=== PATIENT | male | born 1950 | race Caucasian/White ===

== ENCOUNTER 2017-09-15 17:06 | Inpatient (IN) ==
[2017-09-15] MEDS ORDERED: SALINE FLUSH 10ml SYRINGE IVF PRN (17:24)
--- NOTE | 2017-09-15 17:54 | Emergency Department Report ---
Psych HPI - General Chief Complaint: Psychiatric Symptoms Stated Complaint: evaluation Time Seen by Provider: 09/15/17 17:10 Source: patient Mode of arrival: ambulatory Limitations: no limitations - History of Present Illness HPI Narrative: Pt here for evaluation for admission to [facility]. Pt was in a psych facility in [place] and having some behavior issues with other residents. At this point pt reports threats to hurt himself and others. He states he is not above killing another of the residents at the other facility. Pt reports he has been feeling down for about 2 weeks now and feels abandoned by his family MD complaint: suicidal ideation, feels depressed, other (homicidal) Onset (ago): week(s) Duration: getting worse Prior Hospitalization: Yes Relieving factors: none Exacerbating factors: other (interactions ) Context: significant life stressor Associated psychiatric symptoms: depression, suicidal ideation, homicidal ideation Associated symptoms: denies other symptoms Treatments prior to arrival: other (was in another facility) If self harm: admits thoughts of self harm - Related Data Home Medications Medication Instructions Recorded Confirmed Acetaminophen [Tylenol] 650 mg PO Q4HR 09/15/17 09/15/17 Allopurinol [Zyloprim] 200 mg PO DAILY 09/15/17 09/15/17 Aspirin [Lori Chewable Aspirin] 81 mg PO DAILY 09/15/17 09/15/17 Atorvastatin Calcium 20 mg PO HS 09/15/17 09/15/17 Bacitracin [Bacitraycin Plus] 1 applicatio TP DAILY 09/15/17 09/15/17 Baclofen [Lioresal] 10 mg PO TID 09/15/17 09/15/17 Buspirone [Buspar] 15 mg PO BID 09/15/17 09/15/17 Calcium Carbonate/Vitamin D3 1 tab PO DAILY 09/15/17 09/15/17 [Caltrate 600 + D Soft Chew Tab] Carvedilol [Carvedilol] 6.25 mg PO BID 09/15/17 09/15/17 Cetirizine [Zyrtec] 10 mg PO DAILY 09/15/17 09/15/17 Donepezil [Aricept] 10 mg PO DAILY 09/15/17 09/15/17 Ergocalciferol (Vit. D2) [Vitamin 50,000 unit PO DAILY 09/15/17 09/15/17 D-2] Famotidine [Pepcid] 20 mg PO BID 09/15/17 09/15/17 Fenofibrate [Lofibra] 160 mg PO DAILY 09/15/17 09/15/17 Ferrous Sulfate 325 mg PO DAILY 09/15/17 09/15/17 Fluconazole [Diflucan] 150 mg PO DAILY 09/15/17 09/15/17 Furosemide [Lasix] 40 mg PO BID 09/15/17 09/15/17 Gabapentin [Neurontin] 100 mg PO TID 09/15/17 09/15/17 Hydralazine [Apresoline] 25 mg PO BID 09/15/17 09/15/17 Hydrocodone/Acetaminophen 1 tab PO BID 09/15/17 09/15/17 [Hydrocodon-Acetaminophen 5-325] Hydrocodone/Acetaminophen 1 tab PO Q4HR 09/15/17 09/15/17 [Hydrocodon-Acetaminophen 5-325] Insulin Aspart [Novolog Flexpen] 10 unit SQ DAILY 09/15/17 09/15/17 Insulin Aspart [Novolog Flexpen] 26 unit SQ DAILY 09/15/17 09/15/17 Insulin Aspart [Novolog Flexpen] 30 units SQ DAILY 09/15/17 09/15/17 Insulin Degludec [Tresiba 92 unit SQ HS 09/15/17 09/15/17 Flextouch U-200] LORazepam [Ativan] 0.5 mg PO TID PRN 09/15/17 09/15/17 Levothyroxine Sodium 175 mcg PO 4XW 09/15/17 09/15/17 Levothyroxine Sodium 200 mcg PO 3XW 09/15/17 09/15/17 Linagliptin [Tradjenta] 5 mg PO DAILY 09/15/17 09/15/17 Lipase/Protease/Amylase [Creon Dr 24,000 unit PO TID 09/15/17 09/15/17 24,000 Units Capsule] Loperamide [Imodium] 2 mg PO PRN PRN 09/15/17 09/15/17 MAG-Al + SIM BULK (For Cpdg) 10 - 20 ml PO TID PRN 09/15/17 09/15/17 [Maalox Bulk] Magnesium Hydroxide [Milk of 5 - 10 ml PO DAILY PRN 09/15/17 09/15/17 Magnesia] Magnesium Oxide [Magnesium] 400 mg PO BID 09/15/17 09/15/17 Memantine [Namenda] 5 mg PO DAILY 09/15/17 09/15/17 Olopatadine 0.2% Eye Drops-Qd 2 drop EACH EYE DAILY 09/15/17 09/15/17 [Pataday] [place]-3 Fatty Acids [[place]-3] 1,000 mg PO DAILY 09/15/17 09/15/17 Pantoprazole Tab [Protonix Tab] 40 mg PO BID 09/15/17 09/15/17 Ropinirole [Requip] 1 mg PO DAILY 09/15/17 09/15/17 Ropinirole [Requip] 2 mg PO HS 09/15/17 09/15/17 Sodium Polystyrene Sulfonate 80 ml PO MOWEFR 09/15/17 09/15/17 [Kayexelate] Travoprost 0.004% Eye Drops 1 drop EACH EYE HS 09/15/17 09/15/17 [Travatan Z] Trazodone HCl 75 mg PO HS 09/15/17 09/15/17 Triamcinolone 0.1% Cream 15 G 1 applicatio TOP BID 09/15/17 09/15/17 [Kenalog] Venlafaxine XR [Effexor Xr] 150 mg PO DAILY 09/15/17 09/15/17 Allergies Allergy/AdvReac Type Severity Reaction Status Date / Time codeine [Codiene] Allergy Unknown Verified 09/15/17 17:43 hydromorphone [From Dilaudid] Allergy Unknown Verified 09/15/17 17:43 morphine Allergy Unknown Verified 09/15/17 17:42 Sulfa (Sulfonamide Allergy Unknown Verified 09/15/17 17:42 Antibiotics) Review of Systems All systems: reviewed and negative except as stated Psychiatric: Reports: as per HPI PFSH Patient Stated Medical History Dementia Yes: WITH BEHAVIORS Dysphagia Yes Glaucoma Yes Angina Yes Congestive Heart Failure Yes Other Cardiology Yes: HYPOKALEMIA, ISCHEMIC HEART DISEASE, SYNCOPE Diabetes Mellitus Type 2 Yes Other Yes: CHRONIC KIDNEY DISEASE Other Musculoskeletal Yes: CERVICAL DISC DISORDER, INTERVERTEBRAL DISC DEGEN, GOUT Physical Exam - Limitations Limitations: no limitations - General General appearance: alert, in no apparent distress - Normal Exams: Head:: Normocephalic without trauma Eyes:: Pupils are PERRLA w/ EOMI Neck:: Full range of motion, without adenopathy Chest/Respirations:: Clear all nagy, with good airflow, and symmetry bilaterally Cardiovascular:: Regular rate and rhythm, without murmur or gallop, Pulses 2+ all extremities, capillary refill, <2 seconds all extremities Abdomen:: Bowel sounds positive, soft, non-tender, non-distended Musculoskeletal:: No tenderness, or deformity noted, good range of motion, all extremities Integumentary:: No rashes Neurological:: Patient is alert, and oriented, cranial nerves, motor/sensory/ cerebellar, exams w/o gross deficits, to observation Psychiatric:: Patient exhibits, appropriate attention, emotion and affect Course Vital Signs Temperature 98.3 F 09/15/17 17:20 Pulse Rate 97 09/15/17 17:20 Respiratory Rate 18 09/15/17 17:20 Blood Pressure 184/84 H 09/15/17 17:20 Pulse Oximetry 93 09/15/17 17:20 Temperature 98.3 F 09/15/17 17:20 Pulse Rate 97 09/15/17 17:20 Respiratory Rate 18 09/15/17 17:20 Blood Pressure 202/93 H 09/15/17 18:30 Pulse Oximetry 93 09/15/17 17:20 Psych - MDM Narrative Medical decision making narrative: Lab results and X ray reviewed. Pt states he has not had any of his medications since last night. 1L NS given. [facility] made aware of lab results, VS, and medication status. Pt to be transferred upon completion of IVF - Differential Diagnosis Likely: acute psychosis, suicidal ideation, bipolar disorder, depression, acute anxiety - Medical Records Attestation: I reviewed the patient's medical records. - Lab Data Attestation: I reviewed the patient's lab results. Result diagrams: 09/15/17 18:06 09/15/17 18:06 Lab Results 09/15/17 09/15/17 09/15/17 Range/Units 18:06 18:06 18:06 WBC 7.2 (4.5-11.0) T/MM3 RBC 3.96 L (4.50-5.90) M/MM3 Hgb 11.1 L (13.5-17.5) GM/DL Hct 36.5 L (41-53) % MCV 92.2 (80-100) UM3 MCH 28.0 (26-34) UUG MCHC 30.4 L (31-37) GM/DL RDW Std Deviation 47.6 (36.9-50.2) FL Plt Count 345 (130-400) T/MM3 MPV 10.5 (9.4-12.4) UM3 Immature Gran % (Auto) 0.4 (0.0-0.5) % Neut % (Auto) 78.5 H (33-66) % Lymph % (Auto) 12.1 L (23-45) % [place] % (Auto) 6.3 (0-9.0) % Eos % (Auto) 2.6 (0-4) % Baso % (Auto) 0.1 (0-2) % Neut # (Auto) 5.6 (1.8-7.7) T/MM3 Lymph # (Auto) 0.9 L (1-4.8) T/MM3 [place] # (Auto) 0.5 (0-0.8) T/MM3 Eos # (Auto) 0.2 (0-0.5) T/MM3 Baso # (Auto) 0.0 (0-0.2) T/MM3 Abs Immat Gran (auto) 0.03 (0.00-0.03) T/MM3 Turbidity < 20 (0-20) Sodium 140 (134-144) MEQ/L Potassium 4.8 (3.6-5) MEQ/L Chloride 97 L (98-107) MEQ/L Carbon Dioxide 31 H (22-30) MEQ/L Anion Gap 12 (5-15) MEQ/L BUN 43.0 H (9-20) MG/DL Creatinine 2.6 H (0.8-1.5) MG/DL GFR Calculation 25 BUN/Creatinine Ratio 17 (6-26) RATIO Glucose 328 H (75-110) MG/DL Calculated Osmolality 293 H (261-280) MOSM/KG Calcium 9.1 (8.4-10.2) MG/DL Total Bilirubin 0.30 (0.20-1.30) MG/DL Icterus Index < 2 (0-7) AST 41 (17-59) U/L ALT 38 (21-72) U/L Alkaline Phosphatase 129 H (38-126) U/L Total Protein 8.4 H (6.3-8.2) G/DL Albumin 4.6 (3.5-5.0) G/DL Globulin 3.8 H (2.4-3.6) G/DL Albumin/Globulin Ratio 1.2 (1.1-2.2) RATIO TSH 0.47 (0.47-4.68) MIU/L Specimen Hemolysis < 15 (0-25) Ur Collection Type Urine, clean catch Urine Color Yellow (YELLOW) Urine Clarity Clear Urine pH 6.5 (5.0-8.0) Ur Specific [place] 1.015 (1.015-1.025) Urine Protein 1+ A (NEGATIVE) Urine Glucose (UA) 3+ A (NEGATIVE) Urine Ketones Negative (NEGATIVE) Urine Occult Blood Trace-intact (NEGATIVE) Urine Nitrate Negative (NEGATIVE) Urine Bilirubin Negative (NEGATIVE) Urine Urobilinogen 0.2 (NORMAL) EU/DL Ur Leukocyte Esterase Negative (NEGATIVE) Urine RBC None seen (0-3) /HPF Urine WBC None seen (0-5) /HPF Urine Bacteria Trace H (NEGATIVE) Ur Culture Indicated? Cult not indicated Salicylates < 1.0 L (2-20) MG/DL Urine Opiates Screen ng/mL Ur Oxycodone Screen ng/mL Urine Methadone Screen ng/mL Ur Propoxyphene Screen ng/mL Acetaminophen < 10 L (10-30) UG/ML Ur Barbiturates Screen ng/mL U Tricyclic Antidepress ng/mL Ur Phencyclidine Scrn ng/mL Ur Amphetamines Screen ng/mL U Methamphetamines Scrn ng/mL U Benzodiazepines Scrn ng/mL Urine Cocaine Screen ng/mL U Cannabinoids Screen ng/mL 09/15/17 Range/Units 18:06 WBC (4.5-11.0) T/MM3 RBC (4.50-5.90) M/MM3 Hgb (13.5-17.5) GM/DL Hct (41-53) % MCV (80-100) UM3 MCH (26-34) UUG MCHC (31-37) GM/DL RDW Std Deviation (36.9-50.2) FL Plt Count (130-400) T/MM3 MPV (9.4-12.4) UM3 Immature Gran % (Auto) (0.0-0.5) % Neut % (Auto) (33-66) % Lymph % (Auto) (23-45) % [place] % (Auto) (0-9.0) % Eos % (Auto) (0-4) % Baso % (Auto) (0-2) % Neut # (Auto) (1.8-7.7) T/MM3 Lymph # (Auto) (1-4.8) T/MM3 [place] # (Auto) (0-0.8) T/MM3 Eos # (Auto) (0-0.5) T/MM3 Baso # (Auto) (0-0.2) T/MM3 Abs Immat Gran (auto) (0.00-0.03) T/MM3 Turbidity (0-20) Sodium (134-144) MEQ/L Potassium (3.6-5) MEQ/L Chloride (98-107) MEQ/L Carbon Dioxide (22-30) MEQ/L Anion Gap (5-15) MEQ/L BUN (9-20) MG/DL Creatinine (0.8-1.5) MG/DL GFR Calculation BUN/Creatinine Ratio (6-26) RATIO Glucose (75-110) MG/DL Calculated Osmolality (261-280) MOSM/KG Calcium (8.4-10.2) MG/DL Total Bilirubin (0.20-1.30) MG/DL Icterus Index (0-7) AST (17-59) U/L ALT (21-72) U/L Alkaline Phosphatase (38-126) U/L Total Protein (6.3-8.2) G/DL Albumin (3.5-5.0) G/DL Globulin (2.4-3.6) G/DL Albumin/Globulin Ratio (1.1-2.2) RATIO TSH (0.47-4.68) MIU/L Specimen Hemolysis (0-25) Ur Collection Type Urine Color (YELLOW) Urine Clarity Urine pH (5.0-8.0) Ur Specific [place] (1.015-1.025) Urine Protein (NEGATIVE) Urine Glucose (UA) (NEGATIVE) Urine Ketones (NEGATIVE) Urine Occult Blood (NEGATIVE) Urine Nitrate (NEGATIVE) Urine Bilirubin (NEGATIVE) Urine Urobilinogen (NORMAL) EU/DL Ur Leukocyte Esterase (NEGATIVE) Urine RBC (0-3) /HPF Urine WBC (0-5) /HPF Urine Bacteria (NEGATIVE) Ur Culture Indicated? Salicylates (2-20) MG/DL Urine Opiates Screen Negative ng/mL Ur Oxycodone Screen Negative ng/mL Urine Methadone Screen Negative ng/mL Ur Propoxyphene Screen Negative ng/mL Acetaminophen (10-30) UG/ML Ur Barbiturates Screen Negative ng/mL U Tricyclic Antidepress Negative ng/mL Ur Phencyclidine Scrn Negative ng/mL Ur Amphetamines Screen Negative ng/mL U Methamphetamines Scrn Negative ng/mL U Benzodiazepines Scrn Negative ng/mL Urine Cocaine Screen Negative ng/mL U Cannabinoids Screen Negative ng/mL Disposition Clinical Impression: Suicidal ideation, Dehydration Hypertension Qualifiers: Hypertension type: essential hypertension Qualified Code(s): I10 - Essential ( primary) hypertension Disposition: 65 To [facility] Condition: Improved Prescriptions: No Action Allopurinol [Zyloprim] 200 mg PO DAILY Famotidine [Pepcid] 20 mg PO BID Lipase/Protease/Amylase [Creon Dr 24,000 Units Capsule] 24,000 unit PO TID Cetirizine [Zyrtec] 10 mg PO DAILY Carvedilol [Carvedilol] 6.25 mg PO BID Calcium Carbonate/Vitamin D3 [Caltrate 600 + D Soft Chew Tab] 1 tab PO DAILY Buspirone [Buspar] 15 mg PO BID Atorvastatin Calcium 20 mg PO HS Aspirin [Lori Chewable Aspirin] 81 mg PO DAILY Fluconazole [Diflucan] 150 mg PO DAILY Insulin Aspart [Novolog Flexpen] 30 units SQ DAILY Insulin Aspart [Novolog Flexpen] 26 unit SQ DAILY Memantine [Namenda] 5 mg PO DAILY Magnesium Oxide [Magnesium] 400 mg PO BID Levothyroxine Sodium 200 mcg PO 3XW Levothyroxine Sodium 175 mcg PO 4XW Hydralazine [Apresoline] 25 mg PO BID Gabapentin [Neurontin] 100 mg PO TID Furosemide [Lasix] 40 mg PO BID Olopatadine 0.2% Eye Drops-Qd [Pataday] 2 drop EACH EYE DAILY Travoprost 0.004% Eye Drops [Travatan Z] 1 drop EACH EYE HS Linagliptin [Tradjenta] 5 mg PO DAILY Ropinirole [Requip] 2 mg PO HS Pantoprazole Tab [Protonix Tab] 40 mg PO BID [place]-3 Fatty Acids [[place]-3] 1,000 mg PO DAILY Ergocalciferol (Vit. D2) [Vitamin D-2] 50,000 unit PO DAILY Venlafaxine XR [Effexor Xr] 150 mg PO DAILY Hydrocodone/Acetaminophen [Hydrocodon-Acetaminophen 5-325] 1 tab PO Q4HR MAG-Al + SIM BULK (For Cpdg) [Maalox Bulk] 10 - 20 ml PO TID PRN PRN Reason: Gastrointestinal Upset Acetaminophen [Tylenol] 650 mg PO Q4HR LORazepam [Ativan] 0.5 mg PO TID PRN PRN Reason: Anxiety Sodium Polystyrene Sulfonate [Kayexelate] 80 ml PO MOWEFR Ferrous Sulfate 325 mg PO DAILY Fenofibrate [Lofibra] 160 mg PO DAILY Donepezil [Aricept] 10 mg PO DAILY Baclofen [Lioresal] 10 mg PO TID Insulin Aspart [Novolog Flexpen] 10 unit SQ DAILY Hydrocodone/Acetaminophen [Hydrocodon-Acetaminophen 5-325] 1 tab PO BID Insulin Degludec [Tresiba Flextouch U-200] 92 unit SQ HS Trazodone HCl 75 mg PO HS Ropinirole [Requip] 1 mg PO DAILY Loperamide [Imodium] 2 mg PO PRN PRN PRN Reason: Loose Stools Triamcinolone 0.1% Cream 15 G [Kenalog] 1 applicatio TOP BID Magnesium Hydroxide [Milk of Magnesia] 5 - 10 ml PO DAILY PRN PRN Reason: Constipation Bacitracin [Bacitraycin Plus] 1 applicatio TP DAILY Time of Disposition: 19:51 - Seen By: midlevel
[2017-09-15] MEDS ORDERED: NS 1,000 ML IV ONE (18:56)
[2017-09-15] MEDS: SALINE FLUSH 10ml SYRINGE IVF PRN ×2 (19:12→21:06)
[2017-09-15] MEDS ORDERED: HALOPERIDOL 5 MG/ML INJECTION IM PRN (20:51)
[2017-09-15] MEDS ORDERED: HALOPERIDOL 0.5 MG TABLET PO PRN (20:51)
[2017-09-15] MEDS ORDERED: HYDRALAZINE 25 MG TABLET PO SCH (22:00)
[2017-09-15] MEDS ORDERED: HYDROCODONE/APAP 5mg/325mg TABLET PO ONE (23:35)
[2017-09-15] MEDS: CARVEDILOL 6.25 MG TABLET PO SCH (23:45)
[2017-09-15] MEDS: INSULIN GLARGINE 100unit/ml INJECTION SQ SCH (23:45)
[2017-09-16] MEDS ORDERED: TRAZODONE 50 MG TABLET PO ONE ×2 (00:44→23:34)
[2017-09-16] MEDS ORDERED: GABAPENTIN 100 MG CAPSULE PO ONE ×2 (00:45→23:33)
[2017-09-16 05:42] VITALS: BMI 32.0
[2017-09-16] MEDS: HYDROCODONE/APAP 5mg/325mg TABLET PO PRN ×2 (06:01→22:16)
[2017-09-16] MEDS ORDERED: LOPERAMIDE 2 MG CAPSULE PO PRN (07:36)
[2017-09-16] MEDS ORDERED: HYDROCODONE/APAP 5mg/325mg TABLET PO PRN (07:36)
[2017-09-16] MEDS ORDERED: LEVOTHYROXINE 200 MCG TABLET PO SCH (07:45)
[2017-09-16] MEDS ORDERED: HYDRALAZINE 25 MG TABLET PO SCH (09:00)
[2017-09-16] MEDS ORDERED: CARVEDILOL 6.25 MG TABLET PO SCH ×2 (09:00)
[2017-09-16] MEDS: INSULIN ASPART 100unit/ml INJECTION SQ SCH ×2 (11:00→12:24)
[2017-09-16] MEDS: ACETAMINOPHEN 325 MG TABLET PO SCH ×4 (12:03→20:15)
[2017-09-16] MEDS: FERROUS SULFATE 324 MG TABLET PO SCH (12:04)
[2017-09-16] MEDS: FENOFIBRATE 160 MG TABLET PO SCH (12:04)
[2017-09-16] MEDS: MAGNESIUM OXIDE 400 MG TABLET PO SCH ×2 (12:05→20:15)
[2017-09-16] MEDS: MEMANTINE 5 MG TABLET PO SCH (12:05)
[2017-09-16] MEDS: ALLOPURINOL 100 MG TABLET PO SCH (12:05)
[2017-09-16] MEDS: FAMOTIDINE 20 MG TABLET PO SCH ×2 (12:05→20:15)
[2017-09-16] MEDS: BUSPIRONE 15 MG TABLET PO SCH ×2 (12:05→20:15)
[2017-09-16] MEDS: FLUCONAZOLE 150 MG TABLET PO SCH (12:06)
[2017-09-16] MEDS: BACLOFEN 10 MG TABLET PO SCH ×3 (12:28→20:15)
[2017-09-16] MEDS: PANCRELIPASE PO SCH ×3 (12:28→16:58)
[2017-09-16] MEDS: FUROSEMIDE 40 MG TABLET PO SCH ×2 (12:29→16:59)
[2017-09-16] MEDS: GABAPENTIN 100 MG CAPSULE PO SCH ×3 (12:29→20:14)
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
[2017-09-16] MEDS: ASPIRIN 81 MG CHEWABLE TABLET PO SCH (14:18)
[2017-09-16] MEDS: PANTOPRAZOLE 40 MG TABLET PO SCH ×2 (14:21→20:17)
[2017-09-16] MEDS: OLOPATADINE 0.2% EACH EYE SCH (14:25)
[2017-09-16] MEDS: CARVEDILOL 6.25 MG TABLET PO SCH ×2 (14:26→16:59)
[2017-09-16] MEDS: DONEPEZIL 10 MG TABLET PO SCH (14:30)
[2017-09-16] MEDS: ROPINIROLE 1 MG TABLET PO SCH (14:30)
[2017-09-16] MEDS: TRIAMCINOLONE 0.1% CREAM 15 G TUBE TOP SCH ×2 (14:31→20:17)
[2017-09-16] MEDS: BACITRACIN OINT 15 GM TP SCH (14:31)
[2017-09-16] MEDS: HYDRALAZINE 25 MG TABLET PO SCH (16:59)
[2017-09-16] MEDS ORDERED: INSULIN ASPART 100unit/ml INJECTION SQ SCH (17:30)
[2017-09-16] MEDS: SODIUM POLYSTYRENE SULFONATE 15 GM/60 ML BOTTLE PO SCH (18:11)
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
[2017-09-16] MEDS: TRAVOPROST 0.004% EYE DROPS 2.5ml EACH EYE SCH (20:13)
[2017-09-16] MEDS: ATORVASTATIN 20 MG TABLET PO SCH (20:15)
[2017-09-16] MEDS: INSULIN GLARGINE 100unit/ml INJECTION SQ SCH (20:16)
[2017-09-16] MEDS ORDERED: DONEPEZIL 10 MG TABLET PO SCH (21:00)
[2017-09-16] MEDS ORDERED: INSULIN DEGLUDEC SQ SCH (21:00)
[2017-09-16] MEDS ORDERED: ROPINIROLE 1 MG TABLET PO SCH (21:00)
[2017-09-16] MEDS: LORazepam 0.5 MG TABLET PO PRN (22:16)
[2017-09-17] MEDS: ACETAMINOPHEN 325 MG TABLET PO SCH ×8 (00:19→23:47)
[2017-09-17] MEDS: HYDROCODONE/APAP 5mg/325mg TABLET PO PRN ×5 (04:18→21:56)
[2017-09-17] MEDS: LORazepam 0.5 MG TABLET PO PRN (04:19)
[2017-09-17] MEDS ORDERED: LEVOTHYROXINE 175 MCG TABLET PO SCH (07:36)
[2017-09-17] MEDS: MAGNESIUM OXIDE 400 MG TABLET PO SCH ×2 (08:01→21:50)
[2017-09-17] MEDS: FERROUS SULFATE 324 MG TABLET PO SCH (08:01)
[2017-09-17] MEDS: FAMOTIDINE 20 MG TABLET PO SCH ×2 (08:03→21:48)
[2017-09-17] MEDS: CARVEDILOL 6.25 MG TABLET PO SCH ×2 (08:03→17:40)
[2017-09-17] MEDS: DONEPEZIL 10 MG TABLET PO SCH (08:03)
[2017-09-17] MEDS: ASPIRIN 81 MG CHEWABLE TABLET PO SCH (08:03)
[2017-09-17] MEDS: BUSPIRONE 15 MG TABLET PO SCH ×2 (08:03→21:47)
[2017-09-17] MEDS: ALLOPURINOL 100 MG TABLET PO SCH (08:04)
[2017-09-17] MEDS: FENOFIBRATE 160 MG TABLET PO SCH (08:04)
[2017-09-17] MEDS: PANTOPRAZOLE 40 MG TABLET PO SCH ×2 (08:04→21:50)
[2017-09-17] MEDS: ROPINIROLE 1 MG TABLET PO SCH ×2 (08:04→21:50)
[2017-09-17] MEDS: HYDRALAZINE 25 MG TABLET PO SCH ×2 (08:04→17:40)
[2017-09-17] MEDS: PANCRELIPASE PO SCH ×3 (08:05→17:40)
[2017-09-17] MEDS: BACLOFEN 10 MG TABLET PO SCH ×3 (08:06→21:46)
[2017-09-17] MEDS: FLUCONAZOLE 150 MG TABLET PO SCH (08:06)
[2017-09-17] MEDS: BACITRACIN OINT 15 GM TP SCH (08:06)
[2017-09-17] MEDS: FUROSEMIDE 40 MG TABLET PO SCH ×2 (08:06→17:40)
[2017-09-17] MEDS: GABAPENTIN 100 MG CAPSULE PO SCH ×3 (08:07→21:48)
[2017-09-17] MEDS: OLOPATADINE 0.2% EACH EYE SCH (08:07)
[2017-09-17] MEDS: TRIAMCINOLONE 0.1% CREAM 15 G TUBE TOP SCH ×2 (08:07→21:55)
[2017-09-17] MEDS: MEMANTINE 5 MG TABLET PO SCH (08:07)
[2017-09-17] MEDS: INSULIN ASPART 100unit/ml INJECTION SQ SCH ×2 (08:37→13:48)
[2017-09-17] MEDS ORDERED: SODIUM POLYSTYRENE SULFONATE 15 GM/60 ML BOTTLE PO ONE (09:09)
[2017-09-17] MEDS ORDERED: INSULIN ASPART 100unit/ml INJECTION SQ SCH (09:12)
--- NOTE | 2017-09-17 10:38 | Progress Note ---
- Date 09/17/17 Subjective: Raimundo is seen this morning in follow-up phone call from nursing staff reported hypoglycemia overnight. Patient did have decreased sugars into the 50s and 60s. Pulse states he is unsure if he was symptomatic during this event. He does complain of having pain all over, he did receive and [place] earlier today that has helped some. Otherwise, he denies having chest pain, shortness of breath or abdominal pain. Potassium this morning was slightly up at 5.3. Objective Vital signs: Temperature 97.3 F 09/17/17 08:00 Pulse Rate 74 09/17/17 08:00 Respiratory Rate 16 09/17/17 08:00 Blood Pressure 166/73 H 09/17/17 08:00 Pulse Oximetry 91 09/17/17 08:00 Height/Weight/BMI: Height 1.65 m Weight 87.2 kg Body Mass Index 32.0 - Constitutional Present: no acute distress, well nourished, well developed - Routine HEENT Exam Eye: Present: EOMI ENT: Present: mucous membranes moist, dentition normal - Routine Respiratory Exam Present: CTA bilaterally. Absent: wheezes - Routine Cardiovascular Exam Present: RRR, S1, S2. Absent: murmur - Routine Abdominal Exam Present: soft, normoactive bowel sounds, non distended. Absent: tenderness - Routine Extremities Exam Present: normal capillary refill Comments: Dressing over chronic lower ext wounds - Routine Back/Spine/Pelvis Exam Comments: Chronic low back pain - Routine Skin Exam Present: intact, dry, warm - Routine Neurological Exam Present: alert, CN II-XII intact, moving all extremities - Routine Lymphatic Exam Lymphatic: Absent: adenopathy - Routine Psychiatric Exam Present: cooperative Results - Labs CBC & Chem 7: 09/15/17 18:06 09/17/17 06:52 Assessment and Plan (1) Homicidal ideation Current visit: Yes Status: Acute Assessment and Plan: Impression Acute homicidal ideation Depression. Type II diabetes Hypertension Chronic lower extremity wounds Coronary artery disease chronic kidney disease. COPD Hypertension Hypothyroidism Restless leg syndrome Plan Reviewed psychiatry notes. Agree with attempting to minimize narcotic use for pain. Will continue scheduled Tylenol. Sharps for back pain. Given mild hypo-glycemia. We will decrease evening insulin to 26 units with super. Continue to monitor blood sugars carefully. Potassium was slightly up today at 5.3. Patient did not receive yesterday's dose of Kayexalate. We will give a one-time dose of 15 grams by mouth today. We' ll recheck serum potassium tomorrow. Plan to start patient back on home routine regimen of Kayexalate Thursday, Thursday and Thursday. Otherwise, continue to encourage patient to participate in unit activities Hospital Course Summary Disclaimer: The visit summary below is not to be considered part of the above Progress Note. Hospital Course: 09/16/17 Impression Acute homicidal ideation Depression. Type II diabetes Hypertension Chronic lower extremity wounds Coronary artery disease chronic kidney disease. COPD Hypertension Hypothyroidism Restless leg syndrome Plan Edward with admission to [facility] unit under the care of Dr. Mcknight for further psychiatric evaluation, treatment. In further discussion with patient. 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 We will monitor his Accu-Cheks carefully. At this time, will continue with current regimen. NovoLog 10 units with breakfast, 26 units with lunch, 30 units with supper. Lantus 92 units with at bedtime. Monitor for evidence of hypoglycemia. In addition to oral Tradjenta. Monitor blood pressure. Continue on Coreg 6.25 twice a day, Lasix twice a day, hydralazine 25 twice a day She has a history of hyperkalemia and routinely takes Kayexalate 15 grams orally Thursday, Thursday and Thursday. Potassium last evening on admission was 4.8. We will need to monitor potassium carefully. He did not receive Kayexalate today. We'll rate and recheck chemistry panel on Thursday prior to administration of his dose. Encourage patient to participate in unit activities and provide a safe environment. Hospitalist service will continue to follow patient medically manage his multiple comorbidities. At time of discharge his medical care will return to his PCP, Dr. Antonio in [place] 09/17/17- Plan Reviewed psychiatry notes. Agree with attempting to minimize narcotic use for pain. Will continue scheduled Tylenol. Mason for back pain. Given mild hypo-glycemia. We will decrease evening insulin to 26 units with super. Continue to monitor blood sugars carefully. Potassium was slightly up today at 5.3. Patient did not receive yesterday's dose of Kayexalate. We will give a one-time dose of 15 grams by mouth today. We' ll recheck serum potassium tomorrow. Plan to start patient back on home routine regimen of Kayexalate Thursday, Thursday and Thursday. Otherwise, continue to encourage patient to participate in unit activities
[2017-09-17] MEDS: LEVOTHYROXINE 175 MCG TABLET PO SCH (13:47)
--- NOTE | 2017-09-17 16:24 | Neuropsych Progress Note ---
[facility] Subjective Date: 09/17/17 - Sujective/Severity of Illness Medications: Acetaminophen (Tylenol) 650 mg PO Q4HR [facility] Last Admin: 09/17/17 13:00 Dose: Not Given Hydrocodone Bitart/Acetaminophen ([place] 5/325) 1 tab PO Q4H PRN PRN Reason: Pain Last Admin: 09/17/17 13:00 Dose: 1 tab Allopurinol (Zyloprim) 200 mg PO DAILY [facility] Last Admin: 09/17/17 08:04 Dose: 200 mg Lipase/Protease/Amylase (Pancreaze Dr) 2 cap PO TIDWM [facility] Last Admin: 09/17/17 12:59 Dose: 2 cap Aspirin (Asa) 81 mg PO DAILY [facility] Last Admin: 09/17/17 08:03 Dose: 81 mg Atorvastatin Calcium (Lipitor) 20 mg PO HS [facility] Last Admin: 09/16/17 20:15 Dose: 20 mg Bacitracin (Bacitracin Oint) 1 applic TP DAILY [facility] Last Admin: 09/17/17 08:06 Dose: 1 applic Baclofen (Lioresal) 5 mg PO TID [facility] Last Admin: 09/17/17 08:06 Dose: 5 mg Buspirone HCl (Buspar) 15 mg PO BID [facility] Last Admin: 09/17/17 08:03 Dose: 15 mg Carvedilol (Coreg) 6.25 mg PO BIDWM [facility] Last Admin: 09/17/17 08:03 Dose: 6.25 mg Donepezil HCl (Aricept) 10 mg PO DAILY [facility] Last Admin: 09/17/17 08:03 Dose: 10 mg Famotidine (Pepcid) 20 mg PO BID [facility] Last Admin: 09/17/17 08:03 Dose: 20 mg Fenofibrate (Lofibra) 160 mg PO WB [facility] Last Admin: 09/17/17 08:04 Dose: 160 mg Ferrous Sulfate (Feosol) 324 mg PO WB [facility] Last Admin: 09/17/17 08:01 Dose: 324 mg Fluconazole (Diflucan) 150 mg PO DAILY [facility] Stop: 09/23/17 12:00 Last Admin: 09/17/17 08:06 Dose: 150 mg Furosemide (Lasix) 40 mg PO [id number] [facility] Last Admin: 09/17/17 08:06 Dose: 40 mg Gabapentin (Neurontin) 100 mg PO TID [facility] Last Admin: 09/17/17 08:07 Dose: 100 mg Haloperidol (Haldol) 0.5 mg PO Q6H PRN PRN Reason: Extreme agitation Haloperidol Lactate (Haldol) 0.5 mg IM Q6H PRN PRN Reason: Extreme agitation Hydralazine HCl (Apresoline) 25 mg PO BIDWM [facility] Last Admin: 09/17/17 08:04 Dose: 25 mg Insulin Aspart (Novolog) 10 unit SQ WB [facility] Last Admin: 09/17/17 08:37 Dose: 10 unit Insulin Aspart (Novolog) 26 unit SQ WL [facility] Last Admin: 09/17/17 13:48 Dose: 26 unit Insulin Aspart (Novolog) 26 unit SQ WS [facility] Insulin Glargine (Lantus) 92 unit SQ HS [facility] Last Admin: 09/16/17 20:16 Dose: 92 unit Levothyroxine Sodium (Synthroid) 175 mcg PO [id number] [facility] Last Admin: 09/17/17 13:47 Dose: 175 mcg Levothyroxine Sodium (Synthroid) 200 mcg PO [id number] [facility] Linagliptin (Tradjenta) 5 mg PO DAILY [facility] Last Admin: 09/17/17 08:07 Dose: 5 mg Loperamide HCl (Imodium) 2 mg PO PRN PRN; Protocol PRN Reason: Loose stools Lorazepam (Ativan) 0.5 mg PO Q6H PRN PRN Reason: Extreme agitation Last Admin: 09/17/17 04:19 Dose: 0.5 mg Lorazepam (Ativan Inj) 0.5 mg IM Q6H PRN PRN Reason: Extreme agitation Magnesium Oxide (Magox) 400 mg PO BID [facility] Last Admin: 09/17/17 08:01 Dose: 400 mg Memantine (Namenda) 5 mg PO DAILY [facility] Last Admin: 09/17/17 08:07 Dose: 5 mg Olopatadine HCl (Pataday) 2 drop EACH EYE DAILY [facility] Last Admin: 09/17/17 08:07 Dose: 2 drop Pantoprazole Sodium (Protonix Tab) 40 mg PO BID [facility] Last Admin: 09/17/17 08:04 Dose: 40 mg Ropinirole HCl (Requip) 2 mg PO [facility] Last Admin: 09/16/17 20:14 Dose: 2 mg Ropinirole HCl (Requip) 1 mg PO DAILY [facility] Last Admin: 09/17/17 08:04 Dose: 1 mg Sodium Chloride (Iv Flush) 10 - 80 ml IVF PRN PRN PRN Reason: Flushing Last Admin: 09/15/17 21:06 Dose: 10 ml Sodium Polystyrene Sulfonate (Kayexelate) 15 gm PO MOWEFR [facility] Last Admin: 09/16/17 18:11 Dose: Not Given Travoprost (Travatan Z) 1 drops EACH EYE HS [facility] Last Admin: 09/16/17 20:13 Dose: 1 drops Triamcinolone Acetonide (Kenalog) 1 applic TOP BID [facility] Last Admin: 09/17/17 08:07 Dose: 1 applic Venlafaxine HCl (Effexor Xr) 150 mg PO WB [facility] Last Admin: 09/17/17 08:04 Dose: 150 mg Subjective: Patient seen and chart reviewed. Case discussed with treatment team. Patient is sleeping soundly during rounds. MSE below based on last interview with patient when he was awake. Nursing staff report patient was overall pleasant and cooperative overnight, though didn't sleep well (only 3.5 hours) and seemed to be in pain overnight due to edematous legs. BS have been quite labile which is likely contributing to psychiatric symptoms - will defer to hospitalist on these adjustments. VSS. Patient is eating well. Psychotropic PRNs required in the past 24 hours: Ativan 0.5mg PO x1 at 0418 along with PRN [place]. Start Time: 06:00 Stop Time: 06:15 Mental Status Exam Vitals: Last Vital Signs Temp 97.3 F 09/17/17 08:00 Pulse 74 09/17/17 08:00 Resp 16 09/17/17 08:00 BP 166/73 H 09/17/17 08:00 Pulse Ox 91 09/17/17 08:00 Height: 1.65 m Weight: 87.2 kg - Mental Status Exam Muscle Strength/Tone: Normal Dressing: Casual Grooming: Fair Attitude: Cooperative Motor Activity: Tics Eye Contact: Good Speech: Normal Volume: Normal Rhythm: Appropriate Rhythm Orientation: Disoriented to time, Oriented to person, Oriented to place Mood: Depressed, Anxious Rate of Thoughts: Delayed Thought Organization: Circumstantial Associations: Intact Abstract Reasoning: Impaired, concrete Computation: Poor Computation Thought Content: Ruminations, Hopelessness, Helplessness, Somatic Concerns Perception/Psychotic: Psychotic (questionable) Current Hallucinations: Auditory (AH vs. audible thoughts) Language: Naming Intact Fund of Knowledge: Other (Below average at baseline) Suicidal Ideation: Plan Homicidal Ideation: Persistent, Plan, Intent Insight: Impaired Judgement: Impaired Impulse Control: Poor - Laboratory Result Diagrams: 09/15/17 18:06 09/17/17 06:52 Laboratory Results - last 24 hr 09/16/17 09/17/17 09/17/17 19:51 00:12 00:46 Turbidity Sodium Potassium Chloride Carbon Dioxide Anion Gap BUN Creatinine GFR Calculation BUN/Creatinine Ratio Glucose Glucometer 147 53 98 Hemoglobin A1c Calculated Osmolality Calcium Icterus Index Triglycerides Cholesterol LDL Cholesterol, Calc VLDL Cholesterol HDL Cholesterol Cholesterol/HDL Ratio Specimen Hemolysis 09/17/17 09/17/17 09/17/17 01:30 06:07 06:52 Turbidity < 20 Sodium 140 Potassium 5.3 H Chloride 103 D Carbon Dioxide 28 Anion Gap 9 BUN 40.0 H Creatinine 2.4 H D GFR Calculation 27 BUN/Creatinine Ratio 17 Glucose 153 H Glucometer 152 182 Hemoglobin A1c 8.6 H Calculated Osmolality 282 H Calcium 9.3 Icterus Index < 2 Triglycerides 241 H Cholesterol 140 LDL Cholesterol, Calc 51.8 L VLDL Cholesterol 48.2 H HDL Cholesterol 40 Cholesterol/HDL Ratio 3.5 Specimen Hemolysis < 15 09/17/17 09/17/17 10:41 14:53 Turbidity Sodium Potassium Chloride Carbon Dioxide Anion Gap BUN Creatinine GFR Calculation BUN/Creatinine Ratio Glucose Glucometer 161 126 Hemoglobin A1c Calculated Osmolality Calcium Icterus Index Triglycerides Cholesterol LDL Cholesterol, Calc VLDL Cholesterol HDL Cholesterol Cholesterol/HDL Ratio Specimen Hemolysis Assessment and Plan (1) Suicidal ideation Current visit: Yes Status: Acute (2) Homicidal ideation Current visit: Yes Status: Acute (3) Major depressive disorder, recurrent, severe with psychotic features Current visit: Yes Status: Acute Hospital Course Summary Disclaimer: The visit summary below is not to be considered part of the above Progress Note. Hospital Course: 09/16/17 Impression Acute homicidal ideation Depression. Type II diabetes Hypertension Chronic lower extremity wounds Coronary artery disease chronic kidney disease. COPD Hypertension Hypothyroidism Restless leg syndrome Plan Edward with admission to [facility] unit under the care of Dr. Mcknight for further psychiatric evaluation, treatment. In further discussion with patient. 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 We will monitor his Accu-Cheks carefully. At this time, will continue with current regimen. NovoLog 10 units with breakfast, 26 units with lunch, 30 units with supper. Lantus 92 units with at bedtime. Monitor for evidence of hypoglycemia. In addition to oral Tradjenta. Monitor blood pressure. Continue on Coreg 6.25 twice a day, Lasix twice a day, hydralazine 25 twice a day She has a history of hyperkalemia and routinely takes Kayexalate 15 grams orally Thursday, Thursday and Thursday. Potassium last evening on admission was 4.8. We will need to monitor potassium carefully. He did not receive Kayexalate today. We'll rate and recheck chemistry panel on Thursday prior to administration of his dose. Encourage patient to participate in unit activities and provide a safe environment. Hospitalist service will continue to follow patient medically manage his multiple comorbidities. At time of discharge his medical care will return to his PCP, Dr. Antonio in [place] 09/17/17- Plan Reviewed psychiatry notes. Agree with attempting to minimize narcotic use for pain. Will continue scheduled Tylenol. Mason for back pain. Given mild hypo-glycemia. We will decrease evening insulin to 26 units with super. Continue to monitor blood sugars carefully. Potassium was slightly up today at 5.3. Patient did not receive yesterday's dose of Kayexalate. We will give a one-time dose of 15 grams by mouth today. We' ll recheck serum potassium tomorrow. Plan to start patient back on home routine regimen of Kayexalate Thursday, Thursday and Thursday. Otherwise, continue to encourage patient to participate in unit activities 09/17/17 Psych: Patient not sleeping well but overall cooperative. Will continue attempts to simplify med regimen, taper narcotics as much as possible. Decreased Ropinirole to 1mg BID, scheduled trazodone 150mg PO q HS to target insomnia.
[2017-09-17] MEDS: ATORVASTATIN 20 MG TABLET PO SCH (21:45)
[2017-09-17] MEDS: INSULIN GLARGINE 100unit/ml INJECTION SQ SCH (21:48)
[2017-09-17] MEDS: TRAVOPROST 0.004% EYE DROPS 2.5ml EACH EYE SCH (21:50)
[2017-09-17] MEDS: TRAZODONE 100 MG TABLET PO SCH (21:52)
[2017-09-18] MEDS: HYDROCODONE/APAP 5mg/325mg TABLET PO PRN ×3 (02:17→16:01)
[2017-09-18] MEDS: ACETAMINOPHEN 325 MG TABLET PO SCH ×5 (06:23→20:17)
[2017-09-18] MEDS ORDERED: LEVOTHYROXINE 200 MCG TABLET PO SCH (06:30)
[2017-09-18] MEDS ORDERED: INSULIN ASPART 100unit/ml INJECTION SQ SCH ×2 (07:50→14:25)
[2017-09-18] MEDS: HYDRALAZINE 25 MG TABLET PO SCH ×2 (09:58→17:17)
[2017-09-18] MEDS: PANCRELIPASE PO SCH ×3 (09:58→17:19)
[2017-09-18] MEDS: FAMOTIDINE 20 MG TABLET PO SCH ×2 (09:59→20:19)
[2017-09-18] MEDS: CARVEDILOL 6.25 MG TABLET PO SCH ×2 (09:59→17:17)
[2017-09-18] MEDS: DONEPEZIL 10 MG TABLET PO SCH (09:59)
[2017-09-18] MEDS: FENOFIBRATE 160 MG TABLET PO SCH (09:59)
[2017-09-18] MEDS: BUSPIRONE 15 MG TABLET PO SCH ×2 (09:59→20:18)
[2017-09-18] MEDS: GABAPENTIN 100 MG CAPSULE PO SCH ×3 (09:59→20:19)
[2017-09-18] MEDS: BACLOFEN 10 MG TABLET PO SCH ×3 (09:59→20:14)
[2017-09-18] MEDS: ROPINIROLE 1 MG TABLET PO SCH ×2 (09:59→20:22)
[2017-09-18] MEDS: FERROUS SULFATE 324 MG TABLET PO SCH (09:59)
[2017-09-18] MEDS: FUROSEMIDE 40 MG TABLET PO SCH ×2 (10:00→17:16)
[2017-09-18] MEDS: PANTOPRAZOLE 40 MG TABLET PO SCH ×2 (10:00→20:25)
[2017-09-18] MEDS: MAGNESIUM OXIDE 400 MG TABLET PO SCH ×2 (10:00→20:20)
[2017-09-18] MEDS: MEMANTINE 5 MG TABLET PO SCH (10:00)
[2017-09-18] MEDS: FLUCONAZOLE 150 MG TABLET PO SCH (10:00)
[2017-09-18] MEDS: ALLOPURINOL 100 MG TABLET PO SCH (10:01)
[2017-09-18] MEDS: ASPIRIN 81 MG CHEWABLE TABLET PO SCH (10:01)
[2017-09-18] MEDS: BACITRACIN OINT 15 GM TP SCH (10:01)
[2017-09-18] MEDS: SODIUM POLYSTYRENE SULFONATE 15 GM/60 ML BOTTLE PO SCH (10:02)
[2017-09-18] MEDS: TRIAMCINOLONE 0.1% CREAM 15 G TUBE TOP SCH ×2 (10:03→20:24)
[2017-09-18] MEDS: OLOPATADINE 0.2% EACH EYE SCH (10:03)
[2017-09-18] MEDS: INSULIN ASPART 100unit/ml INJECTION SQ SCH ×2 (10:36→12:36)
--- NOTE | 2017-09-18 18:00 | Neuropsych Progress Note ---
[facility] Subjective Date: 09/18/17 - Sujective/Severity of Illness Medications: Acetaminophen (Tylenol) 650 mg PO Q4HR [facility] Last Admin: 09/18/17 16:01 Dose: Not Given Hydrocodone Bitart/Acetaminophen ([place] 5/325) 1 tab PO Q4H PRN PRN Reason: Pain Last Admin: 09/18/17 16:01 Dose: 1 tab Allopurinol (Zyloprim) 200 mg PO DAILY [facility] Last Admin: 09/18/17 10:01 Dose: 200 mg Lipase/Protease/Amylase (Pancreaze Dr) 2 cap PO TIDWM [facility] Last Admin: 09/18/17 17:19 Dose: 2 cap Aspirin (Asa) 81 mg PO DAILY [facility] Last Admin: 09/18/17 10:01 Dose: 81 mg Atorvastatin Calcium (Lipitor) 20 mg PO HS [facility] Last Admin: 09/17/17 21:45 Dose: 20 mg Bacitracin (Bacitracin Oint) 1 applic TP DAILY [facility] Last Admin: 09/18/17 10:01 Dose: 1 applic Baclofen (Lioresal) 5 mg PO TID [facility] Last Admin: 09/18/17 14:21 Dose: 5 mg Buspirone HCl (Buspar) 15 mg PO BID [facility] Last Admin: 09/18/17 09:59 Dose: 15 mg Carvedilol (Coreg) 6.25 mg PO BIDWM [facility] Last Admin: 09/18/17 17:17 Dose: 6.25 mg Donepezil HCl (Aricept) 10 mg PO DAILY [facility] Last Admin: 09/18/17 09:59 Dose: 10 mg Famotidine (Pepcid) 20 mg PO BID [facility] Last Admin: 09/18/17 09:59 Dose: 20 mg Fenofibrate (Lofibra) 160 mg PO WB [facility] Last Admin: 09/18/17 09:59 Dose: 160 mg Ferrous Sulfate (Feosol) 324 mg PO WB [facility] Last Admin: 09/18/17 09:59 Dose: 324 mg Fluconazole (Diflucan) 150 mg PO DAILY [facility] Stop: 09/23/17 12:00 Last Admin: 09/18/17 10:00 Dose: 150 mg Furosemide (Lasix) 40 mg PO [id number] [facility] Last Admin: 09/18/17 17:16 Dose: 40 mg Gabapentin (Neurontin) 100 mg PO TID [facility] Last Admin: 09/18/17 14:22 Dose: 100 mg Haloperidol (Haldol) 0.5 mg PO Q6H PRN PRN Reason: Extreme agitation Haloperidol Lactate (Haldol) 0.5 mg IM Q6H PRN PRN Reason: Extreme agitation Hydralazine HCl (Apresoline) 25 mg PO BIDWM [facility] Last Admin: 09/18/17 17:17 Dose: 25 mg Insulin Aspart (Novolog) 10 unit SQ WB [facility] Last Admin: 09/18/17 10:36 Dose: Not Given Insulin Aspart (Novolog) 24 unit SQ WS [facility] Last Admin: 09/18/17 17:18 Dose: 24 unit Insulin Aspart (Novolog) 28 unit SQ WL [facility] Insulin Glargine (Lantus) 92 unit SQ HS [facility] Last Admin: 09/17/17 21:48 Dose: Not Given Levothyroxine Sodium (Synthroid) 175 mcg PO SuTuThSa@0630 [facility] Last Admin: 09/17/17 13:47 Dose: 175 mcg Levothyroxine Sodium (Synthroid) 200 mcg PO MoWeFr@0630 [facility] Last Admin: 09/18/17 06:26 Dose: 200 mcg Linagliptin (Tradjenta) 5 mg PO DAILY [facility] Last Admin: 09/18/17 09:59 Dose: 5 mg Loperamide HCl (Imodium) 2 mg PO PRN PRN; Protocol PRN Reason: Loose stools Lorazepam (Ativan) 0.5 mg PO Q6H PRN PRN Reason: Extreme agitation Last Admin: 09/17/17 04:19 Dose: 0.5 mg Lorazepam (Ativan Inj) 0.5 mg IM Q6H PRN PRN Reason: Extreme agitation Magnesium Oxide (Magox) 400 mg PO BID [facility] Last Admin: 09/18/17 10:00 Dose: 400 mg Memantine (Namenda) 5 mg PO DAILY [facility] Last Admin: 09/18/17 10:00 Dose: 5 mg Olopatadine HCl (Pataday) 2 drop EACH EYE DAILY [facility] Last Admin: 09/18/17 10:03 Dose: 2 drop Pantoprazole Sodium (Protonix Tab) 40 mg PO BID [facility] Last Admin: 09/18/17 10:00 Dose: 40 mg Ropinirole HCl (Requip) 1 mg PO BID [facility] Last Admin: 09/18/17 09:59 Dose: 1 mg Sodium Chloride (Iv Flush) 10 - 80 ml IVF PRN PRN PRN Reason: Flushing Last Admin: 09/15/17 21:06 Dose: 10 ml Sodium Polystyrene Sulfonate (Kayexelate) 15 gm PO MOWEFR [facility] Last Admin: 09/18/17 10:02 Dose: 15 gm Travoprost (Travatan Z) 1 drops EACH EYE HS [facility] Last Admin: 09/17/17 21:50 Dose: 1 drops Trazodone HCl (Desyrel) 150 mg PO HS [facility] Last Admin: 09/17/17 21:52 Dose: 150 mg Triamcinolone Acetonide (Kenalog) 1 applic TOP BID [facility] Last Admin: 09/18/17 10:03 Dose: 1 applic Venlafaxine HCl (Effexor Xr) 150 mg PO WB [facility] Last Admin: 09/18/17 09:58 Dose: 150 mg Subjective: Patient seen and chart examined. Nursing reports pt is doing well. Sleeping well and has a good appetite. No behaviors noted. On face to face the pt states he is feeling better. Some depression but denies S/I or H/I. Tolerating meds. Voices no concerns at this time Start Time: 17:00 Stop Time: 17:15 Mental Status Exam Vitals: Last Vital Signs Temp 97.0 F 09/18/17 16:00 Pulse 78 09/18/17 16:00 Resp 18 09/18/17 16:00 BP 149/65 H 09/18/17 16:00 Pulse Ox 93 09/18/17 16:00 Height: 1.65 m Weight: 87.2 kg - Mental Status Exam Muscle Strength/Tone: Normal Dressing: Casual Grooming: Fair Attitude: Cooperative Motor Activity: Tics Eye Contact: Good Speech: Normal Volume: Normal Rhythm: Appropriate Rhythm Orientation: Disoriented to time, Oriented to person, Oriented to place Mood: Depressed, Anxious Rate of Thoughts: Delayed Thought Organization: Circumstantial Associations: Intact Abstract Reasoning: Impaired, concrete Computation: Poor Computation Thought Content: Ruminations, Hopelessness, Helplessness, Somatic Concerns Perception/Psychotic: Psychotic (questionable) Current Hallucinations: Auditory (AH vs. audible thoughts) Language: Naming Intact Fund of Knowledge: Other (Below average at baseline) Suicidal Ideation: Plan Homicidal Ideation: Persistent, Plan, Intent Insight: Impaired Judgement: Impaired Impulse Control: Poor - Laboratory Result Diagrams: 09/15/17 18:06 09/18/17 07:16 Laboratory Results - last 24 hr 09/17/17 09/17/17 09/18/17 20:02 21:28 06:33 Turbidity Sodium Potassium Chloride Carbon Dioxide Anion Gap BUN Creatinine GFR Calculation BUN/Creatinine Ratio Glucose Glucometer 69 71 97 Calculated Osmolality Calcium Icterus Index Specimen Hemolysis 09/18/17 09/18/17 09/18/17 07:16 09:57 12:34 Turbidity < 20 Sodium 138 Potassium 5.0 Chloride 97 L Carbon Dioxide 28 Anion Gap 13 BUN 51.0 H* Creatinine 2.6 H D GFR Calculation 25 BUN/Creatinine Ratio 20 Glucose 89 Glucometer 80 198 Calculated Osmolality 279 Calcium 8.8 Icterus Index < 2 Specimen Hemolysis < 15 09/18/17 14:00 Turbidity Sodium Potassium Chloride Carbon Dioxide Anion Gap BUN Creatinine GFR Calculation BUN/Creatinine Ratio Glucose Glucometer 246 Calculated Osmolality Calcium Icterus Index Specimen Hemolysis Assessment and Plan (1) Suicidal ideation Current visit: Yes Status: Acute (2) Homicidal ideation Current visit: Yes Status: Acute (3) Major depressive disorder, recurrent, severe with psychotic features Current visit: Yes Status: Acute Hospital Course Summary Disclaimer: The visit summary below is not to be considered part of the above Progress Note. Hospital Course: 09/16/17 Impression Acute homicidal ideation Depression. Type II diabetes Hypertension Chronic lower extremity wounds Coronary artery disease chronic kidney disease. COPD Hypertension Hypothyroidism Restless leg syndrome Plan Edward with admission to generations unit under the care of Dr. Mcknight for further psychiatric evaluation, treatment. In further discussion with patient. 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 We will monitor his Accu-Cheks carefully. At this time, will continue with current regimen. NovoLog 10 units with breakfast, 26 units with lunch, 30 units with supper. Lantus 92 units with at bedtime. Monitor for evidence of hypoglycemia. In addition to oral Tradjenta. Monitor blood pressure. Continue on Coreg 6.25 twice a day, Lasix twice a day, hydralazine 25 twice a day She has a history of hyperkalemia and routinely takes Kayexalate 15 grams orally Thursday, Thursday and Thursday. Potassium last evening on admission was 4.8. We will need to monitor potassium carefully. He did not receive Kayexalate today. We'll rate and recheck chemistry panel on Thursday prior to administration of his dose. Encourage patient to participate in unit activities and provide a safe environment. Hospitalist service will continue to follow patient medically manage his multiple comorbidities. At time of discharge his medical care will return to his PCP, Dr. Antonio in [place] 09/17/17- Plan Reviewed psychiatry notes. Agree with attempting to minimize narcotic use for pain. Will continue scheduled Tylenol. [place] for back pain. Given mild hypo-glycemia. We will decrease evening insulin to 26 units with super. Continue to monitor blood sugars carefully. Potassium was slightly up today at 5.3. Patient did not receive yesterday's dose of Kayexalate. We will give a one-time dose of 15 grams by mouth today. We' ll recheck serum potassium tomorrow. Plan to start patient back on home routine regimen of Kayexalate Thursday, Thursday and Thursday. Otherwise, continue to encourage patient to participate in unit activities 09/17/17 Psych: Patient not sleeping well but overall cooperative. Will continue attempts to simplify med regimen, taper narcotics as much as possible. Decreased Ropinirole to 1mg BID, scheduled trazodone 150mg PO q HS to target insomnia. 09/18/17 17:59 Continues to improve. Continue current care
[2017-09-18] MEDS: ATORVASTATIN 20 MG TABLET PO SCH (20:16)
[2017-09-18] MEDS: TRAVOPROST 0.004% EYE DROPS 2.5ml EACH EYE SCH (20:22)
[2017-09-18] MEDS: TRAZODONE 100 MG TABLET PO SCH (20:26)
[2017-09-18] MEDS: INSULIN GLARGINE 100unit/ml INJECTION SQ SCH (21:26)
[2017-09-19] MEDS: ACETAMINOPHEN 325 MG TABLET PO SCH ×4 (00:20→12:21)
[2017-09-19] MEDS: HYDROCODONE/APAP 5mg/325mg TABLET PO PRN ×4 (01:57→21:03)
[2017-09-19] MEDS: LEVOTHYROXINE 175 MCG TABLET PO SCH (09:22)
[2017-09-19] MEDS: CARVEDILOL 6.25 MG TABLET PO SCH ×2 (09:23→17:22)
[2017-09-19] MEDS: FERROUS SULFATE 324 MG TABLET PO SCH (09:24)
[2017-09-19] MEDS: FENOFIBRATE 160 MG TABLET PO SCH (09:24)
[2017-09-19] MEDS: HYDRALAZINE 25 MG TABLET PO SCH ×2 (09:25→17:22)
[2017-09-19] MEDS: INSULIN ASPART 100unit/ml INJECTION SQ SCH (09:27)
[2017-09-19] MEDS: PANCRELIPASE PO SCH ×3 (09:28→17:24)
[2017-09-19] MEDS: ALLOPURINOL 100 MG TABLET PO SCH (09:29)
[2017-09-19] MEDS: ASPIRIN 81 MG CHEWABLE TABLET PO SCH (09:29)
[2017-09-19] MEDS: BUSPIRONE 15 MG TABLET PO SCH ×2 (09:30→20:02)
[2017-09-19] MEDS: BACLOFEN 10 MG TABLET PO SCH ×3 (09:30→20:02)
[2017-09-19] MEDS: FAMOTIDINE 20 MG TABLET PO SCH (09:31)
[2017-09-19] MEDS: DONEPEZIL 10 MG TABLET PO SCH (09:31)
[2017-09-19] MEDS: GABAPENTIN 100 MG CAPSULE PO SCH (09:32)
[2017-09-19] MEDS: FUROSEMIDE 40 MG TABLET PO SCH ×2 (09:32→17:21)
[2017-09-19] MEDS: FLUCONAZOLE 150 MG TABLET PO SCH (09:32)
[2017-09-19] MEDS: MAGNESIUM OXIDE 400 MG TABLET PO SCH ×2 (09:33→20:03)
[2017-09-19] MEDS: MEMANTINE 5 MG TABLET PO SCH (09:33)
[2017-09-19] MEDS: ROPINIROLE 1 MG TABLET PO SCH ×2 (09:34→20:03)
[2017-09-19] MEDS: PANTOPRAZOLE 40 MG TABLET PO SCH (09:34)
[2017-09-19] MEDS: OLOPATADINE 0.2% EACH EYE SCH (09:34)
[2017-09-19] MEDS: TRIAMCINOLONE 0.1% CREAM 15 G TUBE TOP SCH ×2 (09:35→20:03)
--- NOTE | 2017-09-19 10:21 | Neuropsych Progress Note ---
[facility] Subjective Date: 09/19/17 - Sujective/Severity of Illness Medications: Acetaminophen (Tylenol) 650 mg PO Q4HR [facility] Last Admin: 09/19/17 09:21 Dose: Not Given Hydrocodone Bitart/Acetaminophen ([place] 5/325) 1 tab PO Q4H PRN PRN Reason: Pain Last Admin: 09/19/17 06:04 Dose: 1 tab Allopurinol (Zyloprim) 200 mg PO DAILY [facility] Last Admin: 09/19/17 09:29 Dose: 200 mg Lipase/Protease/Amylase (Pancreaze Dr) 2 cap PO TIDWM [facility] Last Admin: 09/19/17 09:28 Dose: 2 cap Aspirin (Asa) 81 mg PO DAILY [facility] Last Admin: 09/19/17 09:29 Dose: 81 mg Atorvastatin Calcium (Lipitor) 20 mg PO HS [facility] Last Admin: 09/18/17 20:16 Dose: 20 mg Bacitracin (Bacitracin Oint) 1 applic TP DAILY [facility] Last Admin: 09/18/17 10:01 Dose: 1 applic Baclofen (Lioresal) 5 mg PO TID [facility] Last Admin: 09/19/17 09:30 Dose: 5 mg Buspirone HCl (Buspar) 15 mg PO BID [facility] Last Admin: 09/19/17 09:30 Dose: 15 mg Carvedilol (Coreg) 6.25 mg PO BIDWM [facility] Last Admin: 09/19/17 09:23 Dose: 6.25 mg Donepezil HCl (Aricept) 10 mg PO DAILY [facility] Last Admin: 09/19/17 09:31 Dose: 10 mg Famotidine (Pepcid) 20 mg PO BID [facility] Last Admin: 09/19/17 09:31 Dose: 20 mg Fenofibrate (Lofibra) 160 mg PO WB [facility] Last Admin: 09/19/17 09:24 Dose: 160 mg Ferrous Sulfate (Feosol) 324 mg PO WB [facility] Last Admin: 09/19/17 09:24 Dose: 324 mg Fluconazole (Diflucan) 150 mg PO DAILY [facility] Stop: 09/23/17 12:00 Last Admin: 09/19/17 09:32 Dose: 150 mg Furosemide (Lasix) 40 mg PO [id number] [facility] Last Admin: 09/19/17 09:32 Dose: 40 mg Gabapentin (Neurontin) 100 mg PO TID [facility] Last Admin: 09/19/17 09:32 Dose: 100 mg Haloperidol (Haldol) 0.5 mg PO Q6H PRN PRN Reason: Extreme agitation Haloperidol Lactate (Haldol) 0.5 mg IM Q6H PRN PRN Reason: Extreme agitation Hydralazine HCl (Apresoline) 25 mg PO BIDWM [facility] Last Admin: 09/19/17 09:25 Dose: 25 mg Insulin Aspart (Novolog) 10 unit SQ WB [facility] Last Admin: 09/19/17 09:27 Dose: 10 unit Insulin Aspart (Novolog) 24 unit SQ WS [facility] Last Admin: 09/18/17 17:18 Dose: 24 unit Insulin Aspart (Novolog) 28 unit SQ WL [facility] Insulin Glargine (Lantus) 92 unit SQ HS [facility] Last Admin: 09/18/17 21:26 Dose: Not Given Levothyroxine Sodium (Synthroid) 175 mcg PO SuTuThSa@0630 [facility] Last Admin: 09/19/17 09:22 Dose: 175 mcg Levothyroxine Sodium (Synthroid) 200 mcg PO MoWeFr@0630 [facility] Last Admin: 09/18/17 06:26 Dose: 200 mcg Linagliptin (Tradjenta) 5 mg PO DAILY [facility] Last Admin: 09/19/17 09:33 Dose: 5 mg Loperamide HCl (Imodium) 2 mg PO PRN PRN; Protocol PRN Reason: Loose stools Lorazepam (Ativan) 0.5 mg PO Q6H PRN PRN Reason: Extreme agitation Last Admin: 09/17/17 04:19 Dose: 0.5 mg Lorazepam (Ativan Inj) 0.5 mg IM Q6H PRN PRN Reason: Extreme agitation Magnesium Oxide (Magox) 400 mg PO BID [facility] Last Admin: 09/19/17 09:33 Dose: 400 mg Memantine (Namenda) 5 mg PO DAILY [facility] Last Admin: 09/19/17 09:33 Dose: 5 mg Olopatadine HCl (Pataday) 2 drop EACH EYE DAILY [facility] Last Admin: 09/19/17 09:34 Dose: 2 drop Pantoprazole Sodium (Protonix Tab) 40 mg PO BID [facility] Last Admin: 09/19/17 09:34 Dose: 40 mg Ropinirole HCl (Requip) 1 mg PO BID [facility] Last Admin: 09/19/17 09:34 Dose: 1 mg Sodium Chloride (Iv Flush) 10 - 80 ml IVF PRN PRN PRN Reason: Flushing Last Admin: 09/15/17 21:06 Dose: 10 ml Sodium Polystyrene Sulfonate (Kayexelate) 15 gm PO MOWEFR [facility] Last Admin: 09/18/17 10:02 Dose: 15 gm Travoprost (Travatan Z) 1 drops EACH EYE HS [facility] Last Admin: 09/18/17 20:22 Dose: 1 drops Trazodone HCl (Desyrel) 150 mg PO HS [facility] Last Admin: 09/18/17 20:26 Dose: 150 mg Triamcinolone Acetonide (Kenalog) 1 applic TOP BID [facility] Last Admin: 09/19/17 09:35 Dose: 1 applic Venlafaxine HCl (Effexor Xr) 150 mg PO WB [facility] Last Admin: 09/19/17 09:29 Dose: 150 mg Subjective: Patient seen and chart examined. Nursing reports pt is doing well. Sleeping well and has a good appetite. No behaviors noted. On face to face the pt states he continues to improve. Mood is improved. Denies S/I or H/I. Tolerating meds. Voices no concerns at this time Start Time: 10:00 Stop Time: 10:15 Mental Status Exam Vitals: Last Vital Signs Temp 98.3 F 09/19/17 08:00 Pulse 81 09/19/17 08:00 Resp 18 09/19/17 08:00 BP 153/63 H 09/19/17 08:00 Pulse Ox 95 09/19/17 08:00 Height: 1.65 m Weight: 87.2 kg - Mental Status Exam Muscle Strength/Tone: Normal Dressing: Casual Grooming: Fair Attitude: Cooperative Motor Activity: Tics Eye Contact: Good Speech: Normal Volume: Normal Rhythm: Appropriate Rhythm Orientation: Disoriented to time, Oriented to person, Oriented to place Mood: Depressed, Anxious Rate of Thoughts: Delayed Thought Organization: Circumstantial Associations: Intact Abstract Reasoning: Impaired, concrete Computation: Poor Computation Thought Content: Ruminations, Hopelessness, Helplessness, Somatic Concerns Perception/Psychotic: Psychotic (questionable) Current Hallucinations: Auditory (AH vs. audible thoughts) Language: Naming Intact Fund of Knowledge: Other (Below average at baseline) Suicidal Ideation: Plan Homicidal Ideation: Persistent, Plan, Intent Insight: Impaired Judgement: Impaired Impulse Control: Poor - Laboratory Result Diagrams: 09/15/17 18:06 09/18/17 07:16 Laboratory Results - last 24 hr 09/18/17 09/18/17 09/19/17 12:34 14:00 06:00 Glucometer 198 246 94 Assessment and Plan (1) Suicidal ideation Current visit: Yes Status: Acute (2) Homicidal ideation Current visit: Yes Status: Acute (3) Major depressive disorder, recurrent, severe with psychotic features Current visit: Yes Status: Acute Hospital Course Summary Disclaimer: The visit summary below is not to be considered part of the above Progress Note. Hospital Course: 09/16/17 Impression Acute homicidal ideation Depression. Type II diabetes Hypertension Chronic lower extremity wounds Coronary artery disease chronic kidney disease. COPD Hypertension Hypothyroidism Restless leg syndrome Plan Edward with admission to [facility] unit under the care of Dr. Mcknight for further psychiatric evaluation, treatment. In further discussion with patient. 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 We will monitor his Accu-Cheks carefully. At this time, will continue with current regimen. NovoLog 10 units with breakfast, 26 units with lunch, 30 units with supper. Lantus 92 units with at bedtime. Monitor for evidence of hypoglycemia. In addition to oral Tradjenta. Monitor blood pressure. Continue on Coreg 6.25 twice a day, Lasix twice a day, hydralazine 25 twice a day She has a history of hyperkalemia and routinely takes Kayexalate 15 grams orally Thursday, Thursday and Thursday. Potassium last evening on admission was 4.8. We will need to monitor potassium carefully. He did not receive Kayexalate today. We'll rate and recheck chemistry panel on Thursday prior to administration of his dose. Encourage patient to participate in unit activities and provide a safe environment. Hospitalist service will continue to follow patient medically manage his multiple comorbidities. At time of discharge his medical care will return to his PCP, Dr. Antonio in [place] 09/17/17- Plan Reviewed psychiatry notes. Agree with attempting to minimize narcotic use for pain. Will continue scheduled Tylenol. [place] for back pain. Given mild hypo-glycemia. We will decrease evening insulin to 26 units with super. Continue to monitor blood sugars carefully. Potassium was slightly up today at 5.3. Patient did not receive yesterday's dose of Kayexalate. We will give a one-time dose of 15 grams by mouth today. We' ll recheck serum potassium tomorrow. Plan to start patient back on home routine regimen of Kayexalate Thursday, Thursday and Thursday. Otherwise, continue to encourage patient to participate in unit activities 09/17/17 Psych: Patient not sleeping well but overall cooperative. Will continue attempts to simplify med regimen, taper narcotics as much as possible. Decreased Ropinirole to 1mg BID, scheduled trazodone 150mg PO q HS to target insomnia. 09/18/17 17:59 Continues to improve. Continue current care 09/19/17 10:21 Continues to improve. Continue current care
[2017-09-19] MEDS: BACITRACIN OINT 15 GM TP SCH (13:20)
[2017-09-19] MEDS ORDERED: ACETAMINOPHEN 325 MG TABLET PO PRN (13:53)
[2017-09-19] MEDS ORDERED: INSULIN ASPART 100unit/ml INJECTION SQ SCH ×3 (13:54)
[2017-09-19] MEDS ORDERED: INSULIN GLARGINE 100unit/ml INJECTION SQ SCH (13:54)
--- NOTE | 2017-09-19 14:01 | Progress Note ---
- Date 09/19/17 Subjective: Raimundo is seen today in follow up. He is resting, awakens easily. Just mumbles at me- does not answer my questions. I did review his chart extensively and d/w RN. He continues to c/o fairly severe LE pain. [place] is more effective than the Tylenol, and nursing is requesting that we change the scheduled Tylenol so that we don't exceed recommended tylenol dosing. Polypharmacy remains a concern, home med list reviewed. I did note a history of PMR- no steroids were prescribed on his home med list. Objective Vital signs: Temperature 98.3 F 09/19/17 08:00 Pulse Rate 81 09/19/17 08:00 Respiratory Rate 18 09/19/17 08:00 Blood Pressure 153/63 H 09/19/17 08:00 Pulse Oximetry 95 09/19/17 08:00 Height/Weight/BMI: Height 1.65 m Weight 87.2 kg Body Mass Index 32.0 - Constitutional Present: no acute distress, well nourished, well developed, obese, disheveled - Routine HEENT Exam Head: Present: normocephalic, atraumatic Eye: Present: EOMI, PERRL ENT: Present: mucous membranes moist - Routine Respiratory Exam Present: CTA bilaterally. Absent: dyspnea, rales, rhonchi, wheezes, crackles - Routine Cardiovascular Exam Present: RRR, S1, S2, no murmur - Routine Abdominal Exam Present: soft, non distended, non tender. Absent: rebound, guarding - Routine Extremities Exam Absent: no edema, non tender - Routine Musculoskeletal Exam Musculoskeletal: Present: no clubbing or cyanosis, moving extremities well - Routine Skin Exam Present: intact, dry, warm - Routine Neurological Exam Present: alert, moving all extremities - Routine Psychiatric Exam Absent: normal affect, good insight, good judgment Results - Labs CBC & Chem 7: 09/15/17 18:06 09/18/17 07:16 Assessment and Plan (1) Homicidal ideation Current visit: Yes Status: Acute Assessment and Plan: Impression Acute homicidal ideation/S.I. Depression. Type II diabetes Hypertension Chronic lower extremity wounds Coronary artery disease chronic kidney disease. COPD Hypertension Hypothyroidism Restless leg syndrome Hyperkalemia PMR Chronic pain Hypoglycemia Plan 09/19/17- Medically complex. Chart reviewed at length. *He continues to have variable BG. Decrease Lantus and L/D mealtime insulin. High BG after breakfast- increase dosing. Continue Tradjenta. *Pain is leone issue, and likely is not helping his mood. Will change APAP to PRN. Continue PRN [place]. Increase the Gabapentin to 300mg TID. Concern for PMR- will add Prednisone 10mg. If this is effective- continue for 1- 2 weeks, and then attempt decrease to 5mg Q day. Will likely need to adjust insulin. Check CRP and ESR to further evaluate dx. If these are negative, can likely DC the steroid. *He is on BID PPI and H2RB. Stop the Pepcid. Decrease PPI to daily. Monitor for recurrent GERD. *Allopurinol- unclear if Gout dx. Monitor. *CKD/Hyperkalemia- he is on BID Loop diuretic. Avoid YOEL/ARB. Check bladder scan to ensure there is not post renal obstruction causing his CKD. Avoid NSAID. Continue oral Kayexalate 3x /week. *RLS- he is on requip BID. May need to decrease to daily. Continue to trim down the med list due to polypharmacy. Continue safe environment and monitor. GI Prophylaxis: Protonix, Pepcid Resuscitation Status: Full Code - Time spent with patient Time with patient PN: 35 minutes Hospital Course Summary Disclaimer: The visit summary below is not to be considered part of the above Progress Note. Hospital Course: 09/16/17 Impression Acute homicidal ideation Depression. Type II diabetes Hypertension Chronic lower extremity wounds Coronary artery disease chronic kidney disease. COPD Hypertension Hypothyroidism Restless leg syndrome Plan Edward with admission to [facility] unit under the care of Dr. Mcknight for further psychiatric evaluation, treatment. In further discussion with patient. 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 We will monitor his Accu-Cheks carefully. At this time, will continue with current regimen. NovoLog 10 units with breakfast, 26 units with lunch, 30 units with supper. Lantus 92 units with at bedtime. Monitor for evidence of hypoglycemia. In addition to oral Tradjenta. Monitor blood pressure. Continue on Coreg 6.25 twice a day, Lasix twice a day, hydralazine 25 twice a day She has a history of hyperkalemia and routinely takes Kayexalate 15 grams orally Thursday, Thursday and Thursday. Potassium last evening on admission was 4.8. We will need to monitor potassium carefully. He did not receive Kayexalate today. We'll rate and recheck chemistry panel on Thursday prior to administration of his dose. Encourage patient to participate in unit activities and provide a safe environment. Hospitalist service will continue to follow patient medically manage his multiple comorbidities. At time of discharge his medical care will return to his PCP, Dr. Antonio in [place] 09/17/17- Plan Reviewed psychiatry notes. Agree with attempting to minimize narcotic use for pain. Will continue scheduled Tylenol. Lithia for back pain. Given mild hypo-glycemia. We will decrease evening insulin to 26 units with super. Continue to monitor blood sugars carefully. Potassium was slightly up today at 5.3. Patient did not receive yesterday's dose of Kayexalate. We will give a one-time dose of 15 grams by mouth today. We' ll recheck serum potassium tomorrow. Plan to start patient back on home routine regimen of Kayexalate Thursday, Thursday and Thursday. Otherwise, continue to encourage patient to participate in unit activities 09/17/17 Psych: Patient not sleeping well but overall cooperative. Will continue attempts to simplify med regimen, taper narcotics as much as possible. Decreased Ropinirole to 1mg BID, scheduled trazodone 150mg PO q HS to target insomnia. 09/18/17 17:59 Continues to improve. Continue current care 09/19/17 10:21 Continues to improve. Continue current care 09/19/17 14:09 09/19/17- Medically complex. Chart reviewed at length. *He continues to have variable BG. Decrease Lantus and L/D mealtime insulin. High BG after breakfast- increase dosing. Continue Tradjenta. *Pain is leone issue, and likely is not helping his mood. Will change APAP to PRN. Continue PRN [place]. Increase the Gabapentin to 300mg TID. Concern for PMR- will add Prednisone 10mg. If this is effective- continue for 1- 2 weeks, and then attempt decrease to 5mg Q day. Will likely need to adjust insulin. Check CRP and ESR to further evaluate dx. If these are negative, can likely DC the steroid. *He is on BID PPI and H2RB. Stop the Pepcid. Decrease PPI to daily. Monitor for recurrent GERD. *Allopurinol- unclear if Gout dx. Monitor. *CKD/Hyperkalemia- he is on BID Loop diuretic. Avoid YOEL/ARB. Check bladder scan to ensure there is not post renal obstruction causing his CKD. Avoid NSAID. Continue oral Kayexalate 3x /week. *RLS- he is on requip BID. May need to decrease to daily. Continue to trim down the med list due to polypharmacy. Continue safe environment and monitor.
[2017-09-19] MEDS: GABAPENTIN 300 MG CAPSULE PO SCH ×2 (15:31→20:02)
[2017-09-19] MEDS: ATORVASTATIN 20 MG TABLET PO SCH (20:02)
[2017-09-19] MEDS: TRAVOPROST 0.004% EYE DROPS 2.5ml EACH EYE SCH (20:03)
[2017-09-19] MEDS: TRAZODONE 100 MG TABLET PO SCH (20:03)
[2017-09-20] MEDS ORDERED: PANTOPRAZOLE 40 MG TABLET PO SCH (06:30)
[2017-09-20] MEDS: LEVOTHYROXINE 175 MCG TABLET PO SCH (06:33)
[2017-09-20] MEDS: HYDROCODONE/APAP 5mg/325mg TABLET PO PRN (06:35)
[2017-09-20] MEDS ORDERED: PredniSONE 10 MG TABLET PO SCH (08:00)
[2017-09-20] MEDS: FERROUS SULFATE 324 MG TABLET PO SCH (09:20)
[2017-09-20] MEDS: FENOFIBRATE 160 MG TABLET PO SCH (09:20)
[2017-09-20] MEDS: CARVEDILOL 6.25 MG TABLET PO SCH (09:20)
[2017-09-20] MEDS: HYDRALAZINE 25 MG TABLET PO SCH (09:21)
[2017-09-20] MEDS: PANCRELIPASE PO SCH ×2 (09:21→13:44)
[2017-09-20] MEDS: ALLOPURINOL 100 MG TABLET PO SCH (09:22)
[2017-09-20] MEDS: BUSPIRONE 15 MG TABLET PO SCH (09:22)
[2017-09-20] MEDS: BACLOFEN 10 MG TABLET PO SCH ×2 (09:22→17:15)
[2017-09-20] MEDS: ASPIRIN 81 MG CHEWABLE TABLET PO SCH (09:22)
[2017-09-20] MEDS: GABAPENTIN 300 MG CAPSULE PO SCH ×3 (09:23→17:15)
[2017-09-20] MEDS: MEMANTINE 5 MG TABLET PO SCH (09:23)
[2017-09-20] MEDS: FLUCONAZOLE 150 MG TABLET PO SCH (09:23)
[2017-09-20] MEDS: DONEPEZIL 10 MG TABLET PO SCH (09:23)
[2017-09-20] MEDS: FUROSEMIDE 40 MG TABLET PO SCH (09:23)
[2017-09-20] MEDS: ROPINIROLE 1 MG TABLET PO SCH (09:23)
[2017-09-20] MEDS: MAGNESIUM OXIDE 400 MG TABLET PO SCH (09:23)
[2017-09-20] MEDS: OLOPATADINE 0.2% EACH EYE SCH (09:24)
[2017-09-20] MEDS: TRIAMCINOLONE 0.1% CREAM 15 G TUBE TOP SCH (09:25)
[2017-09-20] MEDS ORDERED: RENAL DOSING - PHARMACY CONSULT MC ONE (10:11)
--- NOTE | 2017-09-20 10:22 | XRay Report ---
INDICATION: hypoxia PROCEDURE: CHEST 2-VIEWS UPRIGHT (PA & LAT) Encounter: Initial COMPARISON: None FINDINGS: The lungs are clear without evidence of focal abnormal airspace opacity. There is no pleural effusion or pneumothorax. Poststernotomy changes are present. The heart size, mediastinal contours and pulmonary vascularity are within normal limits. IMPRESSION: No acute cardiopulmonary disease. .
[2017-09-20] MEDS: BACITRACIN OINT 15 GM TP SCH (10:59)
--- NOTE | 2017-09-20 11:00 | Neuropsych Progress Note ---
[facility] Subjective Date: 09/20/17 - Sujective/Severity of Illness Medications: Acetaminophen (Tylenol) 650 mg PO Q4HR PRN PRN Reason: Pain Hydrocodone Bitart/Acetaminophen ([place] 5/325) 1 tab PO Q4H PRN PRN Reason: Pain Last Admin: 09/20/17 06:35 Dose: 1 tab Allopurinol (Zyloprim) 200 mg PO DAILY [facility] Last Admin: 09/20/17 09:22 Dose: 200 mg Lipase/Protease/Amylase (Pancreaze Dr) 2 cap PO TIDWM [facility] Last Admin: 09/20/17 09:21 Dose: 2 cap Aspirin (Asa) 81 mg PO DAILY [facility] Last Admin: 09/20/17 09:22 Dose: 81 mg Atorvastatin Calcium (Lipitor) 20 mg PO HS [facility] Last Admin: 09/19/17 20:02 Dose: 20 mg Bacitracin (Bacitracin Oint) 1 applic TP DAILY [facility] Last Admin: 09/19/17 13:20 Dose: Not Given Baclofen (Lioresal) 5 mg PO TID [facility] Last Admin: 09/20/17 09:22 Dose: 5 mg Buspirone HCl (Buspar) 15 mg PO BID [facility] Last Admin: 09/20/17 09:22 Dose: 15 mg Carvedilol (Coreg) 6.25 mg PO BIDWM [facility] Last Admin: 09/20/17 09:20 Dose: 6.25 mg Donepezil HCl (Aricept) 10 mg PO DAILY [facility] Last Admin: 09/20/17 09:23 Dose: 10 mg Fenofibrate (Lofibra) 160 mg PO WB [facility] Last Admin: 09/20/17 09:20 Dose: 160 mg Ferrous Sulfate (Feosol) 324 mg PO WB [facility] Last Admin: 09/20/17 09:20 Dose: 324 mg Fluconazole (Diflucan) 150 mg PO DAILY [facility] Stop: 09/23/17 12:00 Last Admin: 09/20/17 09:23 Dose: 150 mg Furosemide (Lasix) 40 mg PO [id number] [facility] Last Admin: 09/20/17 09:23 Dose: 40 mg Furosemide (Lasix) 40 mg IVP DAILY ONE Stop: 09/21/17 10:06 Gabapentin (Neurontin) 100 mg PO TID [facility] Haloperidol (Haldol) 0.5 mg PO Q6H PRN PRN Reason: Extreme agitation Haloperidol Lactate (Haldol) 0.5 mg IM Q6H PRN PRN Reason: Extreme agitation Hydralazine HCl (Apresoline) 25 mg PO BIDWM [facility] Last Admin: 09/20/17 09:21 Dose: 25 mg Insulin Aspart (Novolog) 12 unit SQ WB [facility] Insulin Aspart (Novolog) 18 unit SQ WS [facility] Last Admin: 09/19/17 17:23 Dose: 18 unit Insulin Aspart (Novolog) 22 unit SQ WL [facility] Insulin Glargine (Lantus) 80 unit SQ HS [facility] Last Admin: 09/19/17 20:02 Dose: 80 unit Levothyroxine Sodium (Synthroid) 175 mcg PO [id number] [facility] Last Admin: 09/20/17 06:33 Dose: 175 mcg Levothyroxine Sodium (Synthroid) 200 mcg PO [id number] [facility] Last Admin: 09/18/17 06:26 Dose: 200 mcg Linagliptin (Tradjenta) 5 mg PO DAILY [facility] Last Admin: 09/20/17 09:23 Dose: 5 mg Loperamide HCl (Imodium) 2 mg PO PRN PRN; Protocol PRN Reason: Loose stools Lorazepam (Ativan) 0.5 mg PO Q6H PRN PRN Reason: Extreme agitation Last Admin: 09/17/17 04:19 Dose: 0.5 mg Lorazepam (Ativan Inj) 0.5 mg IM Q6H PRN PRN Reason: Extreme agitation Magnesium Oxide (Magox) 400 mg PO BID [facility] Last Admin: 09/20/17 09:23 Dose: 400 mg Memantine (Namenda) 5 mg PO DAILY [facility] Last Admin: 09/20/17 09:23 Dose: 5 mg Olopatadine HCl (Pataday) 2 drop EACH EYE DAILY [facility] Last Admin: 09/20/17 09:24 Dose: 2 drop Pantoprazole Sodium (Protonix Tab) 40 mg PO ACB [facility] Last Admin: 09/20/17 06:33 Dose: 40 mg Prednisone (Deltasone) 10 mg PO WB [facility] Last Admin: 09/20/17 09:21 Dose: 10 mg Ropinirole HCl (Requip) 1 mg PO BID [facility] Last Admin: 09/20/17 09:23 Dose: 1 mg Sodium Chloride (Iv Flush) 10 - 80 ml IVF PRN PRN PRN Reason: Flushing Last Admin: 09/15/17 21:06 Dose: 10 ml Sodium Polystyrene Sulfonate (Kayexelate) 15 gm PO MOWEFR [facility] Last Admin: 09/18/17 10:02 Dose: 15 gm Travoprost (Travatan Z) 1 drops EACH EYE HS [facility] Last Admin: 09/19/17 20:03 Dose: 1 drops Trazodone HCl (Desyrel) 150 mg PO HS [facility] Last Admin: 09/19/17 20:03 Dose: 150 mg Triamcinolone Acetonide (Kenalog) 1 applic TOP BID [facility] Last Admin: 09/20/17 09:25 Dose: 1 applic Venlafaxine HCl (Effexor Xr) 150 mg PO WB [facility] Last Admin: 09/20/17 09:22 Dose: 150 mg Subjective: Patient seen and chart examined. Nursing reports pt is doing well. Sleeping well and has a good appetite. Has had some SOA and sats dropping in the 80's when walking. Med team notified. On face to face the pt states he is doing well. He reports his mood continues to improve. Sleeping and eating well. Denies S/I. Still has some HI toward peer at [place]. Tolerating meds Start Time: 10:00 Stop Time: 10:15 Mental Status Exam Vitals: Last Vital Signs Temp 97.1 F 09/20/17 08:00 Pulse 76 09/20/17 08:00 Resp 22 09/20/17 08:00 BP 141/70 H 09/20/17 08:00 Pulse Ox 93 09/20/17 09:08 Height: 1.65 m Weight: 87.2 kg - Mental Status Exam Muscle Strength/Tone: Normal Dressing: Casual Grooming: Fair Attitude: Cooperative Motor Activity: Tics Eye Contact: Good Speech: Normal Volume: Normal Rhythm: Appropriate Rhythm Orientation: Disoriented to time, Oriented to person, Oriented to place Mood: Depressed, Anxious Rate of Thoughts: Delayed Thought Organization: Circumstantial Associations: Intact Abstract Reasoning: Impaired, concrete Computation: Poor Computation Thought Content: Ruminations, Hopelessness, Helplessness, Somatic Concerns Perception/Psychotic: Psychotic (questionable) Current Hallucinations: Auditory (AH vs. audible thoughts) Language: Naming Intact Fund of Knowledge: Other (Below average at baseline) Suicidal Ideation: Plan Homicidal Ideation: Persistent, Plan, Intent Insight: Impaired Judgement: Impaired Impulse Control: Poor - Laboratory Result Diagrams: 09/20/17 07:46 09/20/17 07:47 Laboratory Results - last 24 hr 09/19/17 09/19/17 09/19/17 10:30 14:27 20:27 WBC RBC Hgb Hct MCV MCH MCHC RDW Std Deviation Plt Count MPV Immature Gran % (Auto) Neut % (Auto) Lymph % (Auto) [place]aston % (Auto) Eos % (Auto) Baso % (Auto) Neut # (Auto) Lymph # (Auto) [place] # (Auto) Eos # (Auto) Baso # (Auto) Abs Immat Gran (auto) Turbidity Sodium Potassium Chloride Carbon Dioxide Anion Gap BUN Creatinine GFR Calculation BUN/Creatinine Ratio Glucose Glucometer 259 115 174 Calculated Osmolality Calcium Phosphorus Icterus Index C-Reactive Protein Albumin Specimen Hemolysis 09/20/17 09/20/17 09/20/17 06:34 07:46 07:47 WBC 5.0 RBC 3.97 L Hgb 11.0 L Hct 36.2 L MCV 91.2 MCH 27.7 MCHC 30.4 L RDW Std Deviation 46.3 Plt Count 367 MPV 10.2 Immature Gran % (Auto) 1.6 H Neut % (Auto) 63.0 Lymph % (Auto) 20.4 L [place] % (Auto) 8.0 Eos % (Auto) 6.4 H Baso % (Auto) 0.6 Neut # (Auto) 3.2 Lymph # (Auto) 1.0 [place] # (Auto) 0.4 Eos # (Auto) 0.3 Baso # (Auto) 0.0 Abs Immat Gran (auto) 0.08 H Turbidity < 20 Sodium 135 Potassium 4.8 Chloride 93 L Carbon Dioxide 30 Anion Gap 12 BUN 68.0 H* Creatinine 3.5 H D GFR Calculation 18 BUN/Creatinine Ratio 19 Glucose 90 Glucometer 81 Calculated Osmolality 280 Calcium 8.7 Phosphorus 5.5 H Icterus Index < 2 C-Reactive Protein 25.4 H Albumin 4.2 Specimen Hemolysis < 15 Assessment and Plan (1) Suicidal ideation Current visit: Yes Status: Acute (2) Homicidal ideation Current visit: Yes Status: Acute (3) Major depressive disorder, recurrent, severe with psychotic features Current visit: Yes Status: Acute Hospital Course Summary Disclaimer: The visit summary below is not to be considered part of the above Progress Note. Hospital Course: 09/16/17 Impression Acute homicidal ideation Depression. Type II diabetes Hypertension Chronic lower extremity wounds Coronary artery disease chronic kidney disease. COPD Hypertension Hypothyroidism Restless leg syndrome Plan Edward with admission to [facility] unit under the care of Dr. Mcknight for further psychiatric evaluation, treatment. In further discussion with patient. 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 We will monitor his Accu-Cheks carefully. At this time, will continue with current regimen. NovoLog 10 units with breakfast, 26 units with lunch, 30 units with supper. Lantus 92 units with at bedtime. Monitor for evidence of hypoglycemia. In addition to oral Tradjenta. Monitor blood pressure. Continue on Coreg 6.25 twice a day, Lasix twice a day, hydralazine 25 twice a day She has a history of hyperkalemia and routinely takes Kayexalate 15 grams orally Thursday, Thursday and Thursday. Potassium last evening on admission was 4.8. We will need to monitor potassium carefully. He did not receive Kayexalate today. We'll rate and recheck chemistry panel on Thursday prior to administration of his dose. Encourage patient to participate in unit activities and provide a safe environment. Hospitalist service will continue to follow patient medically manage his multiple comorbidities. At time of discharge his medical care will return to his PCP, Dr. Antonio in [place] 09/17/17- Plan Reviewed psychiatry notes. Agree with attempting to minimize narcotic use for pain. Will continue scheduled Tylenol. [place] for back pain. Given mild hypo-glycemia. We will decrease evening insulin to 26 units with super. Continue to monitor blood sugars carefully. Potassium was slightly up today at 5.3. Patient did not receive yesterday's dose of Kayexalate. We will give a one-time dose of 15 grams by mouth today. We' ll recheck serum potassium tomorrow. Plan to start patient back on home routine regimen of Kayexalate Thursday, Thursday and Thursday. Otherwise, continue to encourage patient to participate in unit activities 09/17/17 Psych: Patient not sleeping well but overall cooperative. Will continue attempts to simplify med regimen, taper narcotics as much as possible. Decreased Ropinirole to 1mg BID, scheduled trazodone 150mg PO q HS to target insomnia. 09/18/17 17:59 Continues to improve. Continue current care 09/19/17 10:21 Continues to improve. Continue current care 09/19/17 14:09 09/19/17- Medically complex. Chart reviewed at length. *He continues to have variable BG. Decrease Lantus and L/D mealtime insulin. High BG after breakfast- increase dosing. Continue Tradjenta. *Pain is leone issue, and likely is not helping his mood. Will change APAP to PRN. Continue PRN [place]. Increase the Gabapentin to 300mg TID. Concern for PMR- will add Prednisone 10mg. If this is effective- continue for 1- 2 weeks, and then attempt decrease to 5mg Q day. Will likely need to adjust insulin. Check CRP and ESR to further evaluate dx. If these are negative, can likely DC the steroid. *He is on BID PPI and H2RB. Stop the Pepcid. Decrease PPI to daily. Monitor for recurrent GERD. *Allopurinol- unclear if Gout dx. Monitor. *CKD/Hyperkalemia- he is on BID Loop diuretic. Avoid YOEL/ARB. Check bladder scan to ensure there is not post renal obstruction causing his CKD. Avoid NSAID. Continue oral Kayexalate 3x /week. *RLS- he is on requip BID. May need to decrease to daily. Continue to trim down the med list due to polypharmacy. Continue safe environment and monitor. 09/20/17 10:59 Medical team following. Continue current care
--- NOTE | 2017-09-20 11:27 | Progress Note ---
<BreannaSamara A - Last Filed: 09/20/17 11:18> - Date 09/20/17 Subjective: Raimundo is seen today in follow up for his depression with recent SI/HI as well as his acute on chronic kidney disease. He is seen while sitting in his room listening to music. He smiles on greeting and states that he is feeling better since [facility]. He denies any SI/HI, though continues to admit to some depression. 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 He denies any other complaints or concerns including no chest pain, shortness of breath, abdominal pain, nausea, vomiting or dysuria. He states that his appetite is good and his bowels are moving. His prior medical records and current chart were extensively reviewed. Review of the vital signs indicated hypoxia during the night without mention of oxygen placement. He denies any congestion or fevers but admits to occasional non-productive cough. Pulse ox on exam revealed 93% on room air which decreased to 87% with ambulation to bathroom. 2L oxygen were then placed with improvement. Raimundo admits to previous history of oxygen use at home but states that his PCP, Dr. Antonio, discontinued his oxygen because "he didn't need it any more". It is unclear when he was previously on oxygen, the duration or when it was discontinued. He has a significant history of former tobacco use. Prior records indicate a history of dysphagia, though Raimundo denies any diet modification. He does admit to occasional coughing when eating. He states that his pain in his back, hips and legs is improved today, currently 0/10 at rest. Labs today revealed significant increase in BUN and SCr at 68 and 3.5 ( previously 51 and 2.6). 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 CRP elevated at 25.4 which was obtained to assess possible history of PMR and/or lupus. Blood sugars remain variable. Insulin regimen adjusted on 09/19/17. Objective Vital signs: Temperature 97.1 F 09/20/17 08:00 Pulse Rate 76 09/20/17 08:00 Respiratory Rate 14 09/20/17 11:06 Blood Pressure 141/70 H 09/20/17 08:00 Pulse Oximetry 93 09/20/17 09:08 Height/Weight/BMI: Height 5 ft 5 in Weight 192 lb 3.889 oz Body Mass Index 32.0 Comments: Patient sitting in his recliner, listening to music and in no apparent distress. - Constitutional Present: no acute distress, well nourished, well developed, cooperative - Routine HEENT Exam Head: Present: normocephalic, atraumatic Eye: Present: PERRL. Absent: conjunctival icterus ENT: Present: mucous membranes dry - Routine Respiratory Exam Present: CTA bilaterally. Absent: rhonchi, stridor, wheezes, crackles - Routine Cardiovascular Exam Present: RRR, S1, S2, murmur - Routine Abdominal Exam Present: soft, normoactive bowel sounds, non distended, non tender. Absent: rebound, guarding, firm, rigid - Routine Extremities Exam Present: edema, pulses intact (1+ bilaterally), normal capillary refill, calf tenderness (left), tenderness (left foot and calf) Comments: bilateral lower extremity edema 1+; tenderness with gentle palpation of pedal pulses on left; no pain on right; pedal pulses 1+ bilaterally; Warmth, erythema , skin tightness and dry/flaking skin to left lower extremity; right lower extremity with dryness/flaking and skin discoloration consistent with PVD without warmth; lower extremity wounds noted bilaterally with bandages clean, dry and intact. - Routine Back/Spine/Pelvis Exam Back/Spine: Present: full ROM. Absent: vertebral tenderness - Routine Musculoskeletal Exam Musculoskeletal: Present: normal strength, moving extremities well - Routine Skin Exam Present: dry, warm, wounds (bilateral lower extremities). Absent: jaundice - Routine Neurological Exam Present: alert, moving all extremities, hearing grossly intact, normal speech. Absent: facial asymmetry - Routine Lymphatic Exam Lymphatic: Absent: lymphedema - Routine Psychiatric Exam Present: cooperative Results - Labs CBC & Chem 7: 09/20/17 07:46 09/20/17 07:47 Assessment and Plan (1) Homicidal ideation Current visit: Yes Status: Acute Assessment and Plan: Impression Acute homicidal ideation/S.I. Depression. Type II diabetes, insulin dependent, uncontrolled. Hypertension. Chronic lower extremity wounds. Coronary artery disease. Chronic kidney disease, stage IV. COPD. Hypothyroidism. Restless leg syndrome. Hyperkalemia. PMR. Chronic pain. Plan - 09/20/17 (Mirakian). Patient is medically complex with multiple comorbidities. Chart and prior medical records reviewed at length and case discussed with Dr. Nicholson. HI/SI and depression improving. Continue with psychiatric care per team. Continue to provide safe and supportive environment. History of Stage IV chronic kidney disease. Baseline SCr unknown, but suspect around 2.5. SCr increased to 3.5 today. Sodium trending down, concerning for fluid overload. Discussed with Dr. Nicholson. Will given Lasix 40mg IV now in addition to daily lasix 40mg BID. Measure I&O and monitor daily weights closely. Will obtain renal ultrasound. Recommend bladder scan for evaluation of post renal obstruction possibly causing elevation. History of hyperkalemia. Potassium stable at 4.8. Continue Kayexalate and monitor closely. Hypoxia noted during the night though no indication that oxygen was placed. Oxygen on exam was 93% on room air but decreased to 87% with ambulation. 2L oxygen placed with improvement. Continue supplemental oxygen, weaning as able. Will obtain CXR now. Prior records indicate history of dysphagia. Will change diet to nectar thickened liquids and soft diet and consult speech therapy for evaluation 09/21. Encourage incentive spirometry for pulmonary toileting. No wheezing on exam. May consider breathing treatments given history of tobacco use and COPD. Blood sugars remain variable. Insulins adjusted on 09/19/17: Lantus decreased to 80 units, breakfast insulin increased to 12 units, lunch insulin decreased to 22 units and dinner insulin decreased to 18 units. Continue to monitor blood sugars closely for hypoglycemia. May consider consulting Dr. Sanches if blood sugars remain variable. Continue Tradjenta. Exam reveals swollen, erythematous, warm left lower extremity with calf and foot pain. Will obtain doppler ultrasound now for further evaluation. Bilateral lower extremity wounds noted on admission. Wound care team consulted at that time and have yet to see patient. Will consult wound team again. Continue to monitor wound and dressings. Pain is improved today, currently 0/10. Given poor renal function, will decrease gabapentin to 100mg TID. Consult pharmacy for review of all medications and renal dosing recommendations. Continue [place] for pain control as needed. Understand the concern about using narcotics given his depression with SI/HI but believe his pain contributes to his mood. Monitor closely. Avoid NSAIDS (ibuprofen) given his poor renal function. Concern for PMR - Prednisone 10mg was initiated on 09/19. If this is effective- continue for 1-2 weeks, and then attempt to decrease to 5mg Q day. Will likely need to adjust insulin. CRP elevated at 25.4. ESR pending. Prior records indicate possible history of discoid lupus erythematous. Will assess protein/creatine ratio as well as UA for significant blood and protein. Peripheral eosinophilia noted at >6% today. Continue to monitor. Given poor renal function, will hold allopurinol and fibrate. Continue to trim down the medication list due to polypharmacy. Will recheck labs in AM to monitor blood counts, electrolytes and renal function. GI Prophylaxis: Protonix Resuscitation Status: Full Code - Time spent with patient Time with patient PN: 50 minutes Hospital Course Summary Disclaimer: The visit summary below is not to be considered part of the above Progress Note. Hospital Course: 09/16/17 Impression Acute homicidal ideation Depression. Type II diabetes Hypertension Chronic lower extremity wounds Coronary artery disease chronic kidney disease. COPD Hypertension Hypothyroidism Restless leg syndrome Plan Edward with admission to [facility] under the care of Dr. Mcknight for further psychiatric evaluation, treatment. In further discussion with patient. 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 We will monitor his Accu-Cheks carefully. At this time, will continue with current regimen. NovoLog 10 units with breakfast, 26 units with lunch, 30 units with supper. Lantus 92 units with at bedtime. Monitor for evidence of hypoglycemia. In addition to oral Tradjenta. Monitor blood pressure. Continue on Coreg 6.25 twice a day, Lasix twice a day, hydralazine 25 twice a day She has a history of hyperkalemia and routinely takes Kayexalate 15 grams orally Thursday, Thursday and Thursday. Potassium last evening on admission was 4.8. We will need to monitor potassium carefully. He did not receive Kayexalate today. We'll rate and recheck chemistry panel on Thursday prior to administration of his dose. Encourage patient to participate in unit activities and provide a safe environment. Hospitalist service will continue to follow patient medically manage his multiple comorbidities. At time of discharge his medical care will return to his PCP, Dr. Antonio in [place] 09/17/17- Plan Reviewed psychiatry notes. Agree with attempting to minimize narcotic use for pain. Will continue scheduled Tylenol. [place] for back pain. Given mild hypo-glycemia. We will decrease evening insulin to 26 units with super. Continue to monitor blood sugars carefully. Potassium was slightly up today at 5.3. Patient did not receive yesterday's dose of Kayexalate. We will give a one-time dose of 15 grams by mouth today. We' ll recheck serum potassium tomorrow. Plan to start patient back on home routine regimen of Kayexalate Thursday, Thursday and Thursday. Otherwise, continue to encourage patient to participate in unit activities 09/17/17 Psych: Patient not sleeping well but overall cooperative. Will continue attempts to simplify med regimen, taper narcotics as much as possible. Decreased Ropinirole to 1mg BID, scheduled trazodone 150mg PO q HS to target insomnia. 09/18/17 17:59 Continues to improve. Continue current care 09/19/17 10:21 Continues to improve. Continue current care 09/19/17 14:09 09/19/17- Medically complex. Chart reviewed at length. *He continues to have variable BG. Decrease Lantus and L/D mealtime insulin. High BG after breakfast- increase dosing. Continue Tradjenta. *Pain is leone issue, and likely is not helping his mood. Will change APAP to PRN. Continue PRN [place]. Increase the Gabapentin to 300mg TID. Concern for PMR- will add Prednisone 10mg. If this is effective- continue for 1- 2 weeks, and then attempt decrease to 5mg Q day. Will likely need to adjust insulin. Check CRP and ESR to further evaluate dx. If these are negative, can likely DC the steroid. *He is on BID PPI and H2RB. Stop the Pepcid. Decrease PPI to daily. Monitor for recurrent GERD. *Allopurinol- unclear if Gout dx. Monitor. *CKD/Hyperkalemia- he is on BID Loop diuretic. Avoid YOEL/ARB. Check bladder scan to ensure there is not post renal obstruction causing his CKD. Avoid NSAID. Continue oral Kayexalate 3x /week. *RLS- he is on requip BID. May need to decrease to daily. Continue to trim down the med list due to polypharmacy. Continue safe environment and monitor. 09/20/17 10:59 Medical team following. Continue current care Plan - 09/20/17 (Breanna). Patient is medically complex with multiple comorbidities. Chart and prior medical records reviewed at length and case discussed with Dr. Nicholson. HI/SI and depression improving. Continue with psychiatric care per team. Continue to provide safe and supportive environment. History of Stage IV chronic kidney disease. Baseline SCr unknown, but suspect around 2.5. SCr increased to 3.5 today. Sodium trending down, concerning for fluid overload. Discussed with Dr. Nicholson. Will given Lasix 40mg IV now in addition to daily lasix 40mg BID. Measure I&O and monitor daily weights closely. Will obtain renal ultrasound. Recommend bladder scan for evaluation of post renal obstruction possibly causing elevation. History of hyperkalemia. Potassium stable at 4.8. Continue Kayexalate and monitor closely. Hypoxia noted during the night though no indication that oxygen was placed. Oxygen on exam was 93% on room air but decreased to 87% with ambulation. 2L oxygen placed with improvement. Continue supplemental oxygen, weaning as able. Will obtain CXR now. Prior records indicate history of dysphagia. Will change diet to nectar thickened liquids and soft diet and consult speech therapy for evaluation 09/21. Encourage incentive spirometry for pulmonary toileting. No wheezing on exam. May consider breathing treatments given history of tobacco use and COPD. Blood sugars remain variable. Insulins adjusted on 09/19/17: Lantus decreased to 80 units, breakfast insulin increased to 12 units, lunch insulin decreased to 22 units and dinner insulin decreased to 18 units. Continue to monitor blood sugars closely for hypoglycemia. May consider consulting Dr. Sanches if blood sugars remain variable. Continue Tradjenta. Exam reveals swollen, erythematous, warm left lower extremity with calf and foot pain. Will obtain doppler ultrasound now for further evaluation. Bilateral lower extremity wounds noted on admission. Wound care team consulted at that time and have yet to see patient. Will consult wound team again. Continue to monitor wound and dressings. Pain is improved today, currently 0/10. Given poor renal function, will decrease gabapentin to 100mg TID. Consult pharmacy for review of all medications and renal dosing recommendations. Continue [place] for pain control as needed. Understand the concern about using narcotics given his depression with SI/HI but believe his pain contributes to his mood. Monitor closely. Avoid NSAIDS (ibuprofen) given his poor renal function. Concern for PMR - Prednisone 10mg was initiated on 09/19. If this is effective- continue for 1-2 weeks, and then attempt to decrease to 5mg Q day. Will likely need to adjust insulin. CRP elevated at 25.4. ESR pending. Prior records indicate possible history of discoid lupus erythematous. Will assess protein/creatine ratio as well as UA for significant blood and protein. Peripheral eosinophilia noted at >6% today. Continue to monitor. Given poor renal function, will hold allopurinol and fibrate. Continue to trim down the medication list due to polypharmacy. Will recheck labs in AM to monitor blood counts, electrolytes and renal function. <Sammi Nicholson M - Last Filed: 09/20/17 14:03> - Date 09/20/17 Objective Vital signs: Temperature 97.1 F 09/20/17 08:00 Pulse Rate 76 09/20/17 08:00 Respiratory Rate 14 09/20/17 11:06 Blood Pressure 141/70 H 09/20/17 08:00 Pulse Oximetry 93 09/20/17 09:08 Height/Weight/BMI: Height 1.65 m Weight 87.2 kg Body Mass Index 32.0 Results - Labs CBC & Chem 7: 09/20/17 07:46 09/20/17 07:47 Assessment and Plan Assessment and Plan: Patient was seen and examined independently of Samara today on [facility], discussed with nursing staff and with Samara. Agree with the note above as a reflection of our shared plan of care. CKD IV per history, no clear baseline per records available here, follows with nephrology in [place] ([facility] versus [facility]?) but he is not sure who he sees. On exam he has evidence of chronic volume overload but has woody changes to BLE , chronic wounds. Volume status difficult to discern but he has good basilar air movement and no acute decompensation from pulmonary edema. He has been on lasix po 40 mg BID; will hold additional dosing acutely and monitor results of pending studies including UA, UPCR, renal ultrasound. Continue on and obtain CXR further evaluation of hypoxia as there may be other occult etiology. Wound care reconsulted to see the patient for LE wounds. Multiple medications adjusted including gabapentin dosing decreased, holding NSIADs, allopurinol, fibrate. Repeat early AM labs for surveillance. Will continue to follow closely with you; don't hestiate to call with questions or concerns that arise. Hospital Course Summary Disclaimer: The visit summary below is not to be considered part of the above Progress Note.
[2017-09-20 16:07] VITALS: TEMP 96.6
[2017-09-20 16:09] VITALS: BP 136/60; PULSE 45; RESP 22; O2SAT 96
[2017-09-20] MEDS ORDERED: ASPIRIN 81 MG CHEWABLE TABLET PO ONE (16:45)
[2017-09-20] MEDS ORDERED: NITROGLYCERIN 0.4 MG SUBLINGUAL TABLET SL PRN (16:45)
[2017-09-21] MEDS ORDERED: FUROSEMIDE 40 MG/4 ML INJECTION IVP ONE (10:05)
[2017-09-21] MEDS ORDERED: ASPIRIN 81 MG CHEWABLE TABLET PO ONE (16:45)
== END 2017-09-20 17:08 | disposition short-term general hospital (02) | DRG 885 ==
LOC: ED 17:06 → GEN 21:15
PROVIDERS: ADMIT Psychiatry & Neurology Psychiatry; ATTEND Psychiatry & Neurology Psychiatry

== ENCOUNTER 2017-09-20 17:08 | Inpatient (IN) ==
[2017-09-20] MEDS ORDERED: ONDANSETRON 4 MG/2 ML INJECTION IVP PRN (17:37)
[2017-09-20] MEDS ORDERED: FUROSEMIDE 100 MG/10 ML INJECTION IVP STA (17:41)
[2017-09-20] MEDS ORDERED: SODIUM POLYSTYRENE SULFONATE 15 GM/60 ML BOTTLE PO ONE (17:42)
[2017-09-20 17:44] VITALS: BMI 31.5
[2017-09-20] MEDS ORDERED: DOPamine PREMIX 400 MG/250 ML BAG IV SCH (17:45)
[2017-09-20] MEDS ORDERED: NS 1,000 ML IV SCH (17:45)
[2017-09-20] MEDS ORDERED: HEPARIN 5,000unit/ml 1ml INJECTION IV STA (17:47)
[2017-09-20] MEDS ORDERED: CALCIUM GLUCONATE 4.65mEq/10ml INJECTION IV STA (17:59)
[2017-09-20] MEDS ORDERED: SODIUM BICARBONATE 8.4% (50mEq/50ml) PFS (1 amp) IVP STA (18:01)
[2017-09-20] MEDS ORDERED: HEPARIN DRIP 20,000 UNIT/500 ML BAG IV SCH (18:15)
--- NOTE | 2017-09-20 18:27 | History & Physical Report ---
History of Present Illness Date: 09/20/17 Chief complaint: acute chest pain, hyperkalemia, symptomatic bradycardia HPI: Raimundo Weir is a 67-year-old gentleman who currently resides at [facility] in [place], [place] under the primary care of Dr. Antonio from [place]. He was admitted to the [facility] at [facility] on 09/16/17 after reportedly making homicidal statements with an outlined plan. Since [facility], he reports that he has been feeling better with improvement in his mood, denying any acute suicidal or homicidal ideations since admission. The hospitalist service was consulted for medical management as he has a very complex medical history including uncontrolled insulin dependent diabetes, Stage IV chronic kidney disease for which he follows with Dr. Vaca in [place], hypertension, hypercholesterolemia and COPD in addition to multiple other conditions. Initial labs on admission revealed elevated SCr at 2.6, which is estimated to be close to his baseline. He was seen this morning in follow up for his recent labs this morning which revealed an elevation of his SCr to 3.5. He denied any other complaints or concerns including no chest pain, shortness of breath, abdominal pain, nausea, vomiting or dysuria. Review of the vital signs indicated hypoxia with pulse ox as low as 85% on room air during the night. He denied any current or recent congestion or fevers but admits to occasional non-productive cough. Pulse ox on exam was 93% on room air which decreased to 87% with ambulation to bathroom. 2L oxygen were then placed with improvement. Raimundo admits to previous history of oxygen use at home but states that his PCP, Dr. Antonio, discontinued his oxygen because "he didn't need it any more". It is unclear when he was previously on oxygen, the duration or when it was discontinued. He has a significant history of former tobacco use. Prior records also indicate a history of dysphagia, though Raimundo denies any diet modification but does admit to occasional coughing when eating. He states that his chronic pain in his back, hips and legs is improved today, currently 0/10 at rest. Labs today were significant for increase in BUN and SCr at 68 and 3.5 respectively (previously 51 and 2.6). CRP was also noted to be elevated at 25.4 which was obtained to assess for possible history of PMR and/or lupus. Blood sugars remain variable with the insulin regimen adjusted on 09/19/17. Around 1645, the hospitalist service was notified that Raimundo was complaining of dizziness and lightheadedness while at rest and was found to have a pulse around 40. An EKG was quickly obtained which revealed sinus bradycardia. Raimundo then started to complain of central and left sided crushing chest pain that felt like a "roller" was going over his chest. He states that the pain radiated across his chest and to both his arms. He also complained of nausea without vomiting and diaphoresis. He was immediately evaluated by Dr. Sammi Nicholson and Samara Carlos PA-C (author). He was given ASA 324mg, nitro x 1 and 500cc bolus of NS and transferred to ICU. Upon arrival to the ICU, he was started on a dopamine with slight improvement in heart rate as well as given a bolus of heparin 5000 units followed by a heparin drip at 1000 units/hour. Stat labs were obtained and revealed a negative troponin which was expected given it was obtained at the onset of pain. BMP revealed new hyponatremia (NA 132), new critical hyperkalemia (K 7.3), worsening renal function with elevation of BUN and SCr at 71 and 3.7 respectively. Stable anemia with hemoglobin at 10.4. Phosphorus was slightly elevated at 5.1 and new hypermagnesemia at 2.5. TSH was low at 0.47. Blood pressure continues to trend down despite fluid resuscitation. Bilateral lower extremity doppler ultrasounds were obtained and were negative for DVT. CTa chest/abdomen/pelvis without contrast was also obtained in light of symptoms. Dr. Cordero ( cardiology) was consulted and recommended transfer to [place] due to progressively worsening condition as well as limited cardiovascular and renal resources at [facility]. As Dr. Nicholson contacted and discussed care with a hospitalist at [facility] in [place] who accepted the patient for transfer. Care was also discussed with cardiology in [place]. Review of Systems All systems PM: 10-point ROS was reviewed, no additional remarkable complaints except - Constitutional Constitutional: Present: weakness. Absent: chills, fever(s), headache(s) - EENMT Eyes: Absent: diplopia, photophobia Ears: Absent: ear pain Balance: Absent: falling to one side Nose: Absent: nosebleeds Mouth/Throat: Present: dry mouth - Cardiovascular Cardiovascular: Present: chest pain, edema. Absent: palpitations, syncope Rhythm: Present: regular rhythm Vascular: Present: pedal edema - Respiratory Respiratory: Absent: cough, dyspnea, wheezing Respiratory Comments: hypoxia - Gastrointestinal Gastrointestinal: Present: abdominal pain, constipation, dysphagia (per prior records), nausea. Absent: vomiting - Genitourinary Genitourinary: Absent: dysuria, flank pain, hematuria - Musculoskeletal Musculoskeletal: Present: back pain (chronic), muscle weakness. Absent: deformity - Integumentary/Breasts Integumentary: Present: non-healing lesions (bilateral lower extremities). Absent: jaundice - Neurological Neurological: Present: dizziness, radicular pain, restless legs, weakness. Absent: convulsions, focal weakness, headache(s), loss of vision - Psychiatric Psychiatric: Present: depression. Absent: homicidal ideation, suicidal ideation - Endocrine Endocrine: Absent: flushing, palpitations Endocrine Comments: diaphoresis - Hematologic/Lymphatic Hematologic/Lymphatic: Absent: easy bruising - Allergic/Immunologic Allergic/Immunologic: Absent: seasonal rhinorrhea PFSH History limited due to patient's dementia. Patient Stated Medical History Dementia Yes: WITH BEHAVIORS Dysphagia Yes Glaucoma Yes Angina Yes Congestive Heart Failure Yes Other Cardiology Yes: HYPOKALEMIA, ISCHEMIC HEART DISEASE, SYNCOPE Diabetes Mellitus Type 2 Yes Other Yes: CHRONIC KIDNEY DISEASE Other Musculoskeletal Yes: CERVICAL DISC DISORDER, INTERVERTEBRAL DISC DEGEN, GOUT Clinic Medical History Suicidal ideation (Acute Medical) Hypertension (Acute Medical) Dehydration (Acute Medical) Homicidal ideation (Acute Medical) Major depressive disorder, recurrent, severe with psychotic features (Acute Medical) Surgical History: Appendectomy. CABG. Carotid thromboendarterectomy. Cardiac stent 2. Cholecystectomy. Colonoscopy. Coronary angiograph with left heart catheterization Family History Updates: Father - tractor accident. Brother - , probable coronary event. Son - alive wit diabetes and autism. Daughter - alive with asthma. - Social History Smoking status: Former smoker Substance use type: does not use Alcohol intake frequency: does not drink Housing: assisted living facility Household members: none Current occupational status: retired Does patient use chewing tobacco?: No Current residence: Assisted Living Social history: PCP - Dr. Boom Antonio ([place]). Patient is however resides independently at [facility] in [place], [place]. Medications Home Medications Medication Instructions Recorded Confirmed Type Allopurinol [Zyloprim] 200 mg PO DAILY 09/15/17 09/15/17 History Aspirin [Lori Chewable Aspirin] 81 mg PO DAILY 09/15/17 09/15/17 History Atorvastatin Calcium 20 mg PO HS 09/15/17 09/15/17 History Buspirone [Buspar] 15 mg PO BID 09/15/17 09/15/17 History Ferrous Sulfate 325 mg PO DAILY 09/15/17 09/15/17 History Loperamide [Imodium] 2 mg PO PRN PRN 09/15/17 09/15/17 History Olopatadine 0.2% Eye Drops-Qd 2 drop EACH EYE DAILY 09/15/17 09/15/17 History [Pataday] Pantoprazole Tab [Protonix Tab] 40 mg PO BID 09/15/17 09/15/17 History Sodium Polystyrene Sulfonate 80 ml PO MOWEFR 09/15/17 09/15/17 History [Kayexelate] Travoprost 0.004% Eye Drops 1 drop EACH EYE HS 09/15/17 09/15/17 History [Travatan Z] Triamcinolone 0.1% Cream 15 G 1 applicatio TOP BID 09/15/17 09/15/17 History [Kenalog] Venlafaxine XR [Effexor Xr] 150 mg PO DAILY 09/15/17 09/15/17 History Allergies Allergy/AdvReac Type Severity Reaction Status Date / Time codeine [Codiene] Allergy Unknown Verified 09/15/17 17:43 hydromorphone [From Dilaudid] Allergy Unknown Verified 09/15/17 17:43 morphine Allergy Unknown Verified 09/15/17 17:42 Sulfa (Sulfonamide Allergy Unknown Verified 09/15/17 17:42 Antibiotics) Exam Telemetry Rhythm: Sinus Bradycardia Height/Weight/BMI: Height 5 ft 5 in Weight 189 lb 9.561 oz Body Mass Index 31.5 Comments: Patient initially seen in [facility] unit for initial exam and seen again in ICU. - Constitutional Present: moderate distress, well nourished, well developed, obese, cooperative Comments: complaining of chest pain. - Routine HEENT Exam Head: Present: normocephalic, atraumatic Eye: Present: PERRL. Absent: conjunctival icterus ENT: Present: mucous membranes dry, oropharynx clear - Routine Neck Exam Present: supple, trachea midline - Routine Chest/Breast/Axilla Exam Chest wall: Absent: tenderness, pacemaker - Routine Respiratory Exam Present: decreased breath sounds. Absent: stridor, wheezes, crackles Comments: denies dyspnea but hypoxic on room air requiring 2-3L oxygen via nasal canula. - Routine Cardiovascular Exam Present: murmur, bradycardia - Routine Abdominal Exam Present: soft, normoactive bowel sounds, tenderness (mild, generalized), distended. Absent: guarding, firm, rigid - Routine Exam Penile: Present: circumcision. Absent: erythema, lesions, vesicles, ulceration Scrotal: Absent: tenderness Groin: Absent: swelling Comments: Muñoz catheter placed. - Routine Extremities Exam Present: edema, pulses intact, normal capillary refill, calf tenderness (left), tenderness (bilateral lower extremities with soft touch) - Routine Back/Spine/Pelvis Exam Back/Spine: Present: full ROM. Absent: vertebral tenderness - Routine Skin Exam Present: dry, warm. Absent: jaundice Comments: afebrile; wounds noted to bilateral lower extremities with bandages intact, clean and dry. - Routine Neurological Exam Present: alert (orientated to self), CN II-XII intact, moving all extremities, hearing grossly intact, normal speech. Absent: hemineglect, facial asymmetry - Routine Psychiatric Exam Present: cooperative. Absent: suicidal ideation, homicidal ideation Results - Labs Labs: WBC 6.4 Hgb 10.4 Plt 361 Na 132 L K 7.3 - CRITICAL HI BUN 71 HI SCr 3.7 HI Glu 146 HI Mary 5.1 HI Mag 2.5 HI CK 75 Trop <0.012 TSH 0.47 - Imaging and Cardiology CT scan - chest Status: image reviewed by me Additional comments: 09/20/17: CT chest without contrast - no acute findings; no evidence of pneumonia or pulmonary edema. CT scan - abdomen Status: image reviewed by me Additional comments: 09/20/17 CT abdomen/pelvis without contrast - no acute findings; no evidence of bowel perforation, bowel obstruction nor colitis; no intrarenal calculus or hydronephrosis. Chest x-ray Status: image reviewed by me Additional comments: 09/20/17 CXR - no acute cardiopulmonary disease or changes. Assessment and Plan (1) Chest pain Current visit: Yes Status: Acute (2) Bradycardia Current visit: Yes Status: Acute (3) Hyperkalemia Current visit: Yes Status: Acute (4) Chronic kidney disease (CKD) stage G4/A1, severely decreased glomerular filtration rate (GFR) between 15-29 mL/min/1.73 square meter and albuminuria creatinine ratio less than 30 mg/g Current visit: Yes Status: Acute Assessment and Plan: Assessment Acute chest pain with symptomatic bradycardia. Hypoxia, acute. Hyperkalemia, acute, critical. Acute on chronic kidney disease stage IV. Hyponatremia, acute. Acute homicidal ideation/S.I., resolved. Depression. Type II diabetes, insulin dependent, uncontrolled. Hypertension. Chronic lower extremity wounds. Coronary artery disease. Chronic kidney disease, stage IV. COPD. Hypothyroidism. Restless leg syndrome. Hyperkalemia. PMR. Chronic pain. Plan - 09/20/17 (Admission to ICU). Transfer from [facility] unit to ICU. Gave ASA 325 and nitro x 1 dose with slight improvement in chest pain. Initial EKG revealed bradycardia. Continue to monitor closely on telemetry. Multiple repeat EKGs showed persistent bradycardia. Stat labs obtained revealing negative troponin <0.012. Critical hyperkalemia noted at 7.3. Give kayexalate 60mg po now and lasix 80mg IV now. Dopamine drip initiate with minimal response of bradycardia. Dr. Cordero consulted and recommended transfer to [place] for further care. Heparin bolus 5000 units given followed by heparin drip at 1000 units/hour. Muñoz catheter placed for close I&O. NS at 100cc/hr initiated for fluid resuscitation. Due to persistent deterioration of condition, Dr. Nicholson arranged transfer to [facility] in [place] as care needed including possible cardiology intervention and/or dialysis with disc sander evaluation is unavailable in current setting. Sammi Nicholson MD on 09/20/17 @ 7:30 PM I have seen the patient multiple times today and was present for the above critical care and transition of care. Agree with the note above. Currently the patient remains bradycardic in the 40s, is resting quietly but still has chest discomfort. See DC summary and note able for full details of transfer from inpatient psych [facility] to ICU and now planned transfer to [facility] acute care. Case discussed with accepting physician at [facility], nephrology, cardiology and the patient's DPOA (daughter). Will transfer urgently to [facility] for further ICU care. DVT Prophylaxis: SCD's, Heparin drip Resuscitation Status: Do Not Resuscitate - Time spent with patient Time with patient PN: other (120 minutes) Hospital Course Summary Disclaimer: The visit summary below is not to be considered part of the above Progress Note.
--- NOTE | 2017-09-20 18:44 | Discharge Summary ---
Discharge Information Date of admission: 09/20/17 17:08 Anticipated date of discharge: 09/20/17 Attending Physician: Sammi Nicholson MD Primary care physician: ELMER CHASE Consults: 09/20/17 17:37 Physician Consult [CONS] Routine Consulting Provider: Carlos Cordero Reason For Exam: bradycardia Ordering Provider has Notified [place]: Yes THEODORE on CKD IV Hyperkalemia, severe Chest pain, acute Bradycardia CAD DMII Restless Leg Syndrome Chronic pain syndrome Obesity - Procedures Procedures: CT of the chest, abdomen/pelvis done without contrast just prior to discharge with stat read pending to rule out aortic dissection as a cause for decompensation. Will forward results to admitting physician when preliminary report available. - Laboratory Labs: Stat labs obtained before discharge demonstrate K 7.3, bicarb 26, cr 3.7 and BUN 71. Troponin normal at <0.012. CPK 71. WBC 6.4, Hb 10.4. EKG with sinus bradycardia, rate 39-46 BPM (3 tracings done). No ST or T wave changes noted. - Radiology Radiology: Date of Exam: 09/20/17 Ordering Provider: Samara Carlos Type of Exam(s): XR chest 2V Reason for Exam(s): hypoxia INDICATION: hypoxia PROCEDURE: CHEST 2-VIEWS UPRIGHT (PA & LAT) Encounter: Initial COMPARISON: None FINDINGS: The lungs are clear without evidence of focal abnormal airspace opacity. There is no pleural effusion or pneumothorax. Poststernotomy changes are present. The heart size, mediastinal contours and pulmonary vascularity are within normal limits. IMPRESSION: No acute cardiopulmonary disease. History of Present Illness HPI: Raimundo Weir is a 67-year-old gentleman who currently resides at [place], [place] under the primary care of Dr. Chaes from [place]. He was admitted to the [facility] unit at [facility] on 09/16/17 after reportedly making homicidal statements with an outlined plan. Since his admission to [facility], he reports that he has been feeling better with improvement in his mood, denying any acute suicidal or homicidal ideations since admission. The hospitalist service was consulted for medical management as he has a very complex medical history including uncontrolled insulin dependent diabetes, Stage IV chronic kidney disease for which he follows with Dr. Vaca in [place], hypertension, hypercholesterolemia and COPD in addition to multiple other conditions. He was seen this morning in [facility] in follow up Blood sugars have also improved. He does chronically have open wounds to the lower extremities, none of which appear to be acutely infected. Nursing staff does report some yeastlike rash to bilateral groin. Patient has had a history of hyperkalemia and does take Kayexalate routinely Thursday, Thursday and Thursday. Potassium on admission is 4.8. He denies any other complaints or concerns including no chest pain, shortness of breath, abdominal pain, nausea, vomiting or dysuria. He states that his appetite is good and his bowels are moving. His prior medical records and current chart were extensively reviewed. Review of the vital signs indicated hypoxia during the night without mention of oxygen placement. He denies any congestion or fevers but admits to occasional non-productive cough. Pulse ox on exam revealed 93% on room air which decreased to 87% with ambulation to bathroom. 2L oxygen were then placed with improvement. Raimundo admits to previous history of oxygen use at home but states that his PCP, Dr. Chase, discontinued his oxygen because "he didn't need it any more". It is unclear when he was previously on oxygen, the duration or when it was discontinued. He has a significant history of former tobacco use. Prior records indicate a history of dysphagia, though Raimundo denies any diet modification. He does admit to occasional coughing when eating. He states that his pain in his back, hips and legs is improved today, currently 0/10 at rest. Labs today revealed significant increase in BUN and SCr at 68 and 3.5 (previously 51 and 2.6). 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 CRP elevated at 25.4 which was obtained to assess possible history of PMR and/or lupus. Blood sugars remain variable. Insulin regimen adjusted on 09/19/17. Objective Rhythm: Sinus Bradycardia Height/Weight/BMI: Height 1.65 m Weight 86 kg Body Mass Index 31.5 - Constitutional Present: moderate distress, obese, diaphoretic - Routine HEENT Exam Head: Present: normocephalic, atraumatic Eye: Present: EOMI, PERRL. Absent: conjunctival icterus ENT: Present: mucous membranes moist, oropharynx clear - Routine Respiratory Exam Present: decreased breath sounds, diminished air movement. Absent: accessory muscle use, rhonchi, wheezes, crackles - Routine Cardiovascular Exam Present: bradycardia - Routine Abdominal Exam Present: soft, non tender, distended Comments: hypoactive bowels - Routine Extremities Exam Present: edema (trace BLE with woody stasis changes) - Routine Musculoskeletal Exam Musculoskeletal: Present: no erythema. Absent: joint swelling - Routine Skin Exam Present: cracked Comments: chronic wounds to BLE - Routine Neurological Exam Present: alert, normal speech Hospital Course This is a general summary of the patient's hospital course. For more details refer to the complete medical record. Mr. Weir was transferred acutely to the ICU due to the onset of chest pain/ pressure and bradycardia noted on the inpatient psychiatric unit. Initial troponin was normal, EKG with sinus mane. Stat labs revealed slight increase in cr to 3.7 but K was increased to 7.3 from 4.8 this morning. He was given IV sodium bicarb, IV calcium gluconate, kayexelate 60 mg x 1, lasix 80 mg IV x1 and started on dopamine gtt. Heparin gtt was also started and stat CT of the chest, abdomen, pelvis obtained prior to discharge. Discussed with the admitting hospitalist at [facility] in [place] in addition to cardiology and nephrology. Awaiting bed assignment and patient to be transferred acutely to [place] for further ICU care. DVT Prophylaxis: Heparin drip GI Prophylaxis: Protonix Discharge Plan - Discharge Disposition Discharge Date: 09/20/17 Disposition: 02 To [facility] Acute Care *Condition: Critical Reason For Visit (Visit label in EMR): Chest pain - Discharge Medications *Discharge Medications: New DOPamine PREMIX [DOPamine DRIP] 400 mg IV .Q0M bag Heparin Drip 20,000 unit IV .Q20H bag Continue Allopurinol [Zyloprim] 200 mg PO DAILY Buspirone [Buspar] 15 mg PO BID Atorvastatin Calcium 20 mg PO HS Aspirin [Lori Chewable Aspirin] 81 mg PO DAILY Olopatadine 0.2% Eye Drops-Qd [Pataday] 2 drop EACH EYE DAILY Travoprost 0.004% Eye Drops [Travatan Z] 1 drop EACH EYE HS Pantoprazole Tab [Protonix Tab] 40 mg PO BID Venlafaxine XR [Effexor Xr] 150 mg PO DAILY Sodium Polystyrene Sulfonate [Kayexelate] 80 ml PO MOWEFR Acetaminophen [Tylenol] 650 mg PO Q4HR PRN tab PRN Reason: Pain Bacitracin Oint 1 applicatio TP DAILY tube Hydrocodone/APAP 5/325 [[place] 5/325] 1 tab PO Q4H PRN tab PRN Reason: Pain Insulin Aspart [NovoLOG] 18 unit SQ WS vial Insulin Aspart [NovoLOG] 22 unit SQ WL vial Insulin Glargine,Hum.rec.anlog [Lantus] 80 unit SQ HS vial Levothyroxine Sodium [Synthroid] 200 mcg PO [id number]@0630 tab LORazepam [Ativan] 0.5 mg PO Q6H PRN tab PRN Reason: Extreme Agitation Pancrelipase 10,500 Unit [Pancreaze Dr] 2 cap PO TIDWM capsule.dr Trazodone [Desyrel] 150 mg PO HS tab Ferrous Sulfate 325 mg PO DAILY Loperamide [Imodium] 2 mg PO PRN PRN PRN Reason: Loose Stools Triamcinolone 0.1% Cream 15 G [Kenalog] 1 applicatio TOP BID Haloperidol [Haldol] 0.5 mg PO Q6H PRN tab PRN Reason: Extreme Agitation Insulin Aspart [NovoLOG] 12 unit SQ WB vial Levothyroxine Tab [Synthroid] 175 mcg PO [id number]@0630 tab Discontinued Fluconazole [Diflucan] 150 mg PO DAILY Memantine [Namenda] 5 mg PO DAILY Magnesium Oxide [Magnesium] 400 mg PO BID Gabapentin [Neurontin] 100 mg PO TID Furosemide [Lasix] 40 mg PO BID Linagliptin [Tradjenta] 5 mg PO DAILY Carvedilol [Coreg] 6.25 mg PO BIDWM tab Hydralazine [Apresoline] 25 mg PO BIDWM tab PredniSONE [Deltasone] 10 mg PO WB tab Saline Flush [IV Flush] 10 - 80 ml IVF PRN PRN syringe PRN Reason: Flush Fenofibrate [Lofibra] 160 mg PO DAILY Donepezil [Aricept] 10 mg PO DAILY Baclofen [Lioresal] 10 mg PO TID Ropinirole [Requip] 1 mg PO BID tab - Discharge Packet/Instructions *Diet: NPO *Activity: Bedrest *Pain Management/Treatment: SL nitro, hydrocodone and tylenol as ordered, IV morphine *Wound Care: To be determined at accepting facility; chronic BLE wounds *Expected Signs/Symptoms: N/A; tranferring to ICU care *Notify Physician if: N/A; transferring to ICU care *During Business Hours Contact: N/A; transferring to ICU care *After Business Hours Contact: [facility] switchboard at [phone]. *Pending Lab/Results: No Pending Lab - Referrals/Follow Up - Patient Handouts - Dismissal Complete Discharge Instructions are:: Complete
--- NOTE | 2017-09-21 07:22 | Ultrasound Report ---
Indication: dyspnea, swelling PROCEDURE: US venous doppler LE BI: Encounter: Initial Comparison: None Technique: Color Doppler duplex and grayscale sonographic imaging of both lower extremities was performed. Findings: There is no evidence for acute deep venous thrombosis in either thigh. Specifically, serial graded compression was performed from the inguinal ligament to the popliteal bifurcation, bilaterally, demonstrating appropriate compressibility of the deep venous system. In addition, color and pulsed Doppler demonstrate appropriate spontaneous flow, variation with respiration, and augmentation with calf compression. At the ankle, normal flow is identified in the posterior tibial veins; these vessels are also normal in caliber. Impression: No evidence of acute DVT in either lower limb. There is a preliminary report by [facility]. .
--- NOTE | 2017-09-21 08:50 | CT Scan Report ---
Indication: chest/abdominal pain PROCEDURE: CT chest/abd/pelvis wo con: Encounter: Initial Comparison: None. Findings: Chest: There are small bilateral pleural effusions with probably passive dependent atelectasis versus scarring. There is mild respiratory motion artifact. There is borderline cardiomegaly. There is moderate coronary artery calcification. No pericardial effusion. No definite mediastinal or hilar adenopathy. No suspicious pulmonary mass lesion. There is moderate degenerative disc disease of the thoracic spine. The great vessels arise from the aorta and a normal manner without aneurysmal dilation. There is moderate calcific atherosclerotic disease. The patient is status post median sternotomy. Abdomen: The liver and spleen are unremarkable in contour. Gallbladder has been removed. Adrenal glands are normal. Kidneys are symmetric in size without hydronephrosis or perinephric collection. The pancreas is small and atrophic without discrete abnormality. The abdominal aorta demonstrates scattered calcific atherosclerotic disease without aneurysmal dilation. No retroperitoneal or mesenteric adenopathy. There is pancolonic diverticulosis with both left and right-sided colonic diverticula. Pelvis: The urinary bladder is decompressed by Muñoz catheter. The urinary bladder wall appears mildly thickened but this could be due to the lack of distention. There is no free fluid or pelvic sidewall adenopathy. The prostate gland is not significantly enlarged. There is mild distal colonic diverticulosis without evidence of diverticulitis. Impression: Nonspecific bilateral pleural effusions with probably passive bibasilar atelectasis. Moderate thickening of the urinary bladder which could be artifactual, secondary to the lack to distention. This could also represent cystitis. Pancolonic diverticulosis without evidence of diverticulitis. Preliminary report was provided by [employer] .
== END 2017-09-20 20:00 | disposition short-term general hospital (02) | DRG 313 ==
LOC: CCU 17:08
PROVIDERS: ADMIT Internal Medicine; ATTEND Internal Medicine

== ENCOUNTER 2017-09-23 17:30 | Inpatient (IN) ==
[2017-09-23 19:25] VITALS: BMI 31.0
[2017-09-23] MEDS ORDERED: LOPERAMIDE 2 MG CAPSULE PO PRN (19:39)
[2017-09-23] MEDS ORDERED: CYCLOBENZAPRINE 10 MG TABLET PO PRN (19:39)
[2017-09-23] MEDS ORDERED: ACETAMINOPHEN 325 MG TABLET PO PRN (19:39)
[2017-09-23] MEDS ORDERED: REFRESH CLASSIC Eye Drops 0.4ml EACH EYE PRN (20:00)
[2017-09-23] MEDS ORDERED: PANTOPRAZOLE 40 MG TABLET PO SCH (21:00)
[2017-09-23] MEDS ORDERED: INSULIN GLARGINE 100unit/ml INJECTION SQ SCH (21:00)
[2017-09-23] MEDS ORDERED: FUROSEMIDE 40 MG TABLET PO SCH (21:00)
[2017-09-23] MEDS: ATORVASTATIN 20 MG TABLET PO SCH (21:29)
[2017-09-23] MEDS: BUSPIRONE 15 MG TABLET PO SCH (21:30)
[2017-09-23] MEDS: DONEPEZIL 10 MG TABLET PO SCH (21:31)
[2017-09-23] MEDS: CARVEDILOL 6.25 MG TABLET PO SCH (21:31)
[2017-09-23] MEDS: GABAPENTIN 100 MG CAPSULE PO SCH (21:32)
[2017-09-23] MEDS: FAMOTIDINE 20 MG TABLET PO SCH (21:32)
[2017-09-23] MEDS: HYDRALAZINE 25 MG TABLET PO SCH (21:33)
[2017-09-23] MEDS: HYDROCODONE/APAP 5mg/325mg TABLET PO SCH (21:33)
[2017-09-23] MEDS: ROPINIROLE 2 MG TABLET PO SCH (21:35)
[2017-09-23] MEDS: TRAZODONE 100 MG TABLET PO SCH (21:37)
[2017-09-23] MEDS: TRIAMCINOLONE 0.1% CREAM 15 G TUBE TOP SCH (21:40)
[2017-09-24] MEDS: SODIUM POLYSTYRENE SULFONATE 15 GM/60 ML BOTTLE PO SCH (01:03)
[2017-09-24] MEDS: LEVOTHYROXINE 175 MCG TABLET PO SCH (05:34)
--- NOTE | 2017-09-24 08:51 | 24 Hour Neuropsychiatic Eval ---
Date of Admission: 09/23/17 17:30 Chief complaint: Mood changes History of Present Illness: Patient is a 67-year-old male who was admitted to [facility] on from [facility] for treatment of his depression and recent suicidal/homicidal thoughts. Patient had been admitted to our unit for similar symptoms and then transferred to the medical floor and ultimately another hospital on Thursday for chest pain, and was treated there for hyperkalemia - now corrected. Patient has endorsed multiple symptoms of depression in the context of family stressors and feeling that his daughter didn't want to speak to him anymore. One of his big concerns was his energy, which he feels is quite low. Patient has endorsed hearing voices of his family telling him that he is going to pass away soon but says at other times, they keep him going. He denies command hallucinations to harm self or others. Depression: Increased Irritability, Crying Spells, Isolating Oneself From Friends and Family, Increased Fatigue, Loss of Energy, Feelings of Worthlessness , Recurrent Thoughts of or Suicide [facility] Patient Stated Medical History Dementia Yes: WITH BEHAVIORS Dysphagia Yes Glaucoma Yes Angina Yes Congestive Heart Failure Yes Other Cardiology Yes: HYPOKALEMIA, ISCHEMIC HEART DISEASE, SYNCOPE Diabetes Mellitus Type 2 Yes Other Yes: CHRONIC KIDNEY DISEASE Other Musculoskeletal Yes: CERVICAL DISC DISORDER, INTERVERTEBRAL DISC DEGEN, GOUT Clinic Medical History Suicidal ideation (Acute Medical) Hypertension (Acute Medical) Dehydration (Acute Medical) Homicidal ideation (Acute Medical) Major depressive disorder, recurrent, severe with psychotic features (Acute Medical) Chest pain (Acute Medical) Bradycardia (Acute Medical) Hyperkalemia (Acute Medical) Chronic kidney disease (CKD) stage G4/A1, severely decreased glomerular filtration rate (GFR) between 15-29 mL/min/1.73 square meter and albuminuria creatinine ratio less than 30 mg/g (Acute Medical) Surgical History: Appendectomy. CABG. Carotid thromboendarterectomy. Cardiac stent 2. Cholecystectomy. Colonoscopy. Coronary angiograph with left heart catheterization Family History: Patient states his mother at [facility] but does not know specific diagnosis. - Social History Smoking status: Former smoker Substance use type: former substance user (marijuana, "hash") Alcohol intake frequency: former alcohol drinker Housing: fdc service: No Current occupational status: retired Social history: Strengths: Pleasant personality, has family and placement, good verbal communication Review of Systems All systems: reviewed and no additional remarkable complaints except as stated - Constitutional Constitutional: Present: fatigue - Cardiovascular Vascular: Present: pedal edema - Gastrointestinal Gastrointestinal: Present: diarrhea - Psychiatric Psychiatric: Present: behavioral changes, depression, hopelessness, suicidal ideation (recent) Mental Status Exam Vitals: Last Vital Signs Temp 96.8 F 09/23/17 19:45 Pulse 83 09/23/17 19:45 Resp 18 09/23/17 19:45 BP 160/69 H 09/23/17 19:45 Pulse Ox 93 09/23/17 19:45 Height: 1.63 m Weight: 82 kg - Mental Status Exam Muscle Strength/Tone: Normal Dressing: Casual Grooming: Fair Attitude: Cooperative Motor Activity: Normal Eye Contact: Good Speech: Normal Volume: Normal Rhythm: Appropriate Rhythm Orientation: Disoriented to time, Disoriented to place, Oriented to person Mood: Neutral Affect: Sad Rate of Thoughts: Appropriate Rate Thought Organization: Organized Associations: Intact Abstract Reasoning: Poor abstract reasoning Thought Content: Ruminations, Somatic Concerns Perception/Psychotic: Other (possible AH vs. audible thoughts (see HPI)) Current Hallucinations: Auditory Language: Naming Intact Fund of Knowledge: Chhaya aware current events (believed fund of knowledge below average at baseline) Memory: Poor-recent Suicidal Ideation: Other (Denies currently, admitted recently) Homicidal Ideation: Other (Denies currently, admitted recently ) Insight: Limited Judgement: Limited Impulse Control: Fair - Laboratory Laboratory Results - last 24 hr 09/23/17 09/24/17 09/24/17 20:56 01:11 05:41 Glucometer 299 301 311 Assessment and Plan (1) Major depressive disorder, recurrent, severe with psychotic features Current visit: No Status: Acute (2) Hypertension Qualifiers: Hypertension type: essential hypertension Qualified Code(s): I10 - Essential (primary) hypertension Current visit: No Status: Acute (3) Hyperkalemia Current visit: No Status: Acute (4) Chronic kidney disease (CKD) stage G4/A1, severely decreased glomerular filtration rate (GFR) between 15-29 mL/min/1.73 square meter and albuminuria creatinine ratio less than 30 mg/g Current visit: No Status: Acute Admit to [facility]; maintain safety and elopement precautions throughout evaluation and stabilization. Will order/review the following: CBC, CMP, TSH, UA, Vitamin B12, folate levels - some of this was done during previous visit or at other hospital Will obtain further collateral from patient's daughter Monitor mood, behavior and response to treatment Will likely attempt to decrease some of patient's meds as his regimen is quite complicated and is likely leading to some of his depressive symptoms
[2017-09-24] MEDS ORDERED: FENOFIBRATE 160 MG TABLET PO SCH (09:00)
[2017-09-24] MEDS: INSULIN ASPART 100unit/ml INJECTION SQ SCH ×3 (10:08→18:06)
[2017-09-24] MEDS: PANCRELIPASE PO SCH ×3 (10:09→17:08)
[2017-09-24] MEDS: ALLOPURINOL 100 MG TABLET PO SCH (10:13)
[2017-09-24] MEDS: FAMOTIDINE 20 MG TABLET PO SCH ×2 (10:14→21:21)
[2017-09-24] MEDS: CARVEDILOL 6.25 MG TABLET PO SCH ×2 (10:14→17:07)
[2017-09-24] MEDS: CALCIUM 600 + VIT D 400 TABLET PO SCH (10:14)
[2017-09-24] MEDS: FERROUS SULFATE 324 MG TABLET PO SCH (10:14)
[2017-09-24] MEDS: BUSPIRONE 15 MG TABLET PO SCH ×2 (10:14→21:21)
[2017-09-24] MEDS: FUROSEMIDE 40 MG TABLET PO SCH ×2 (10:15→17:05)
[2017-09-24] MEDS: HYDRALAZINE 25 MG TABLET PO SCH ×2 (10:15→17:08)
[2017-09-24] MEDS: HYDROCODONE/APAP 5mg/325mg TABLET PO SCH ×2 (10:15→21:21)
[2017-09-24] MEDS: GABAPENTIN 100 MG CAPSULE PO SCH ×3 (10:15→21:21)
[2017-09-24] MEDS: ROPINIROLE 1 MG TABLET PO SCH (10:16)
[2017-09-24] MEDS: MEMANTINE 5 MG TABLET PO SCH (10:16)
[2017-09-24] MEDS: TRIAMCINOLONE 0.1% CREAM 15 G TUBE TOP SCH ×2 (10:16→21:23)
[2017-09-24] MEDS: POLYETHYL GLYCOL 3350 17gm PACKET PO SCH (10:16)
[2017-09-24] MEDS ORDERED: INSULIN ASPART 100unit/ml INJECTION SQ ONE (10:54)
[2017-09-24] MEDS: ASPIRIN 81 MG CHEWABLE TABLET PO SCH (12:20)
[2017-09-24] MEDS: PANTOPRAZOLE 40 MG TABLET PO SCH ×2 (12:20→17:06)
[2017-09-24] MEDS: OLOPATADINE 0.2% EACH EYE SCH (12:21)
--- NOTE | 2017-09-24 13:51 | History & Physical Report ---
History of Present Illness Date: 09/24/17 Chief complaint: auditory hallucinations, worsening depression HPI: Patient is a 67-year-old male who was originally admitted to [facility] unit on 09/16/17 after reportedly making homicidal statements with an outlined plan. Patient was making progress in regards to his mood, but on 09/20/17 he developed complaints of dizziness and was found to have a pulse of 40. He soon complained of chest pain and was transferred to the ICU. His EKG showed sinus bradycardia. His initial troponin was negative. He was put on a dopamine drip and given heparin and nitroglycerin. He was found to have a new critical potassium of 7.3 and a new hyponatremia with sodium of 132. Worsening renal function with elevation of BUN and serum creatinine at 71 and 3.7 respectively. Given his symptoms, he was transferred to [place]. Once his hyperkalemia was corrected with urgent dialysis, he resumed normal sinus rhythm. Once he was determined to be stable, he was transferred back to the [facility] unit as he continues to have severe depression. During his stay in [place], he did have an echocardiogram showing ejection fraction of 55-60%. He also has grade [address] Aaron, taxi dancer, and he recommended outpatient ischemic evaluation. Based on information from [place] hospitalization, he needs follow-up appointment with Dr. Aaron (cardiology) in 2-[address] Kent (nephrology) in 1-2 weeks. His PCP is Dr. Antonio in [place]. Review of Systems All systems PM: 10-point ROS was reviewed, no additional remarkable complaints except - Integumentary/Breasts Integumentary Comments: Diabetic and venous stasis changes to the lower legs bilaterally. Dressing in place on the right lower leg - Neurological Neurological: Present: other (burning in the feet) - Psychiatric Psychiatric: Present: depression [facility] Medical history Depression. Type II diabetes, insulin dependent, uncontrolled. Hypertension. Chronic lower extremity wounds. Coronary artery disease. Chronic kidney disease, stage IV. COPD. Hypothyroidism. Restless leg syndrome. PMR. Chronic pain. Gout. Surgical History: Appendectomy. CABG. Carotid thromboendarterectomy. Cardiac stent 2. Cholecystectomy. Colonoscopy. Coronary angiograph with left heart catheterization Family History: Father-, tractor accident Brother-, probable coronary event. Son-alive with diabetes and autism Daughter-alive with asthma - Social History Smoking status: Former smoker Substance use type: does not use Alcohol intake frequency: does not drink Housing: group home (in [place]) Current occupational status: retired Social history: PCP-Dr. Boom Antonio ([place]) Patient is , however resides at [facility] in [place], [place]. His lives with his daughter. Medications Home Medications Medication Instructions Recorded Confirmed Type Allopurinol [Zyloprim] 200 mg PO DAILY 09/15/17 09/23/17 History Aspirin [Lori Chewable Aspirin] 81 mg PO DAILY 09/15/17 09/23/17 History Atorvastatin Calcium 20 mg PO HS 09/15/17 09/23/17 History Buspirone [Buspar] 15 mg PO BID 09/15/17 09/23/17 History Ferrous Sulfate 325 mg PO DAILY 09/15/17 09/23/17 History Loperamide [Imodium] 2 mg PO PRN PRN 09/15/17 09/23/17 History Olopatadine 0.2% Eye Drops-Qd 1 drop EACH EYE DAILY 09/15/17 09/23/17 History [Pataday] Pantoprazole Tab [Protonix Tab] 40 mg PO BID 09/15/17 09/23/17 History Sodium Polystyrene Sulfonate 60 ml PO MOWEFR 09/15/17 09/23/17 History [Kayexelate] Travoprost 0.004% Eye Drops 1 drop EACH EYE HS 09/15/17 09/23/17 History [Travatan Z] Triamcinolone 0.1% Cream 15 G 1 applicatio TOP BID 09/15/17 09/23/17 History [Kenalog] Venlafaxine XR [Effexor Xr] 150 mg PO DAILY 09/15/17 09/23/17 History Calcium 600 + D [Caltrate + D] 1 tab PO DAILY 09/23/17 09/23/17 History Carvedilol [Carvedilol] 6.25 mg PO BID 09/23/17 09/23/17 History Cyclobenzaprine [Flexeril] 1 tab PO TID PRN 09/23/17 09/23/17 History Donepezil [Aricept] 1 tab PO HS 09/23/17 09/23/17 History Ergocalciferol (Vitamin D2) 1 cap PO 1 MONTH 09/23/17 09/23/17 History [Vitamin D2] Famotidine [Pepcid] 20 mg PO BID 09/23/17 09/23/17 History Fenofibrate [Lofibra] 160 mg PO DAILY 09/23/17 09/23/17 History Furosemide [Lasix] 40 mg PO BID 09/23/17 09/23/17 History Gabapentin [Neurontin] 100 mg PO TID 09/23/17 09/23/17 History Hydralazine [Apresoline] 25 mg PO BID 09/23/17 09/23/17 History Hydrocodone/APAP 5/325 [[place] 1 tab PO BID 09/23/17 09/23/17 History 5/325] Hydrocodone/Acetaminophen 1 tab PO Q6H PRN 09/23/17 09/23/17 History [Hydrocodon-Acetaminophen 5-325] Insulin Aspart [NovoLOG] 10 unit SQ WB 09/23/17 09/23/17 History Insulin Aspart [NovoLOG] 26 unit SQ WL 09/23/17 09/23/17 History Insulin Aspart [NovoLOG] 30 unit SQ WS 09/23/17 09/23/17 History Insulin Glargine,Hum.rec.anlog 92 unit SQ HS 09/23/17 09/23/17 History [Lantus] Linagliptin [Tradjenta] 5 mg PO DAILY 09/23/17 09/23/17 History Lipase/Protease/Amylase [Creon Dr 1 each PO TID 09/23/17 09/23/17 History 24,000 Units Capsule] Memantine [Namenda] 5 mg PO DAILY 09/23/17 09/23/17 History Taos-3 Fatty Acids [Taos-3] 1,000 mg PO DAILY 09/23/17 09/23/17 History PEG 3350 17gm PACKET [Miralax] 17 gm PO DAILY 09/23/17 09/23/17 History Ropinirole [Requip] 1 mg PO DAILY 09/23/17 09/23/17 History Ropinirole [Requip] 2 mg PO HS 09/23/17 09/23/17 History Allergies Allergy/AdvReac Type Severity Reaction Status Date / Time codeine [Codiene] Allergy Unknown Verified 09/15/17 17:43 hydromorphone [From Dilaudid] Allergy Unknown Verified 09/15/17 17:43 morphine Allergy Unknown Verified 09/15/17 17:42 Sulfa (Sulfonamide Allergy Unknown Verified 09/15/17 17:42 Antibiotics) Exam Vital Signs: Temperature 97.9 F 09/24/17 08:00 Pulse Rate 81 09/24/17 08:00 Respiratory Rate 18 09/24/17 08:00 Blood Pressure 133/65 09/24/17 08:00 Pulse Oximetry 92 09/24/17 08:00 Height/Weight/BMI: Height 1.63 m Weight 82 kg Body Mass Index 31.0 - Constitutional Present: no acute distress, well nourished, well developed - Routine HEENT Exam Head: Present: normocephalic, atraumatic Eye: Present: EOMI, PERRL ENT: Present: nares patent, external ear normal - Routine Neck Exam Present: supple. Absent: lymphadenopathy - Routine Respiratory Exam Present: CTA bilaterally. Absent: wheezes - Routine Cardiovascular Exam Present: RRR. Absent: murmur - Routine Abdominal Exam Present: soft, normoactive bowel sounds, non distended. Absent: tenderness - Routine Extremities Exam Present: no edema, normal capillary refill Comments: Pigmentation changes, scaliness, mild erythema, and scabbing to bilateral lower extremities. He does have what appears to be a Mepilex dressing in place on the right lower extremity. - Routine Skin Exam Present: dry, warm - Routine Neurological Exam Present: alert, CN II-XII intact, moving all extremities, normal speech. Absent : motor deficit, pronator drift, facial asymmetry - Routine Psychiatric Exam Present: cooperative, depressed Results - Labs CBC & Chem 7: 09/24/17 18:55 Labs: Labs from 09/23/17 in [place]: WBC 7.9, hemoglobin 10.4, hematocrit 35.3, platelet 328, sodium 138, potassium 4.8, CO2 28, CL 102, creatinine 1.94, BUN 35, phosphorus 3.5, calcium 8.8. Magnesium on September 22 was 2.3. It is suspected that his baseline creatinine is around 2.0. - Echocardiogram Echocardiogram: 09/21/17 Left ventricle: Cavity size is normal. Mild concentric hypertrophy. Systolic function is normal. Ejection fraction 55-60%. Doppler parameters are consistent with abnormal left ventricular relaxation (grade 1 diastolic dysfunction) Systolic function is normal. The left atrium is mildly dilated. Trivial regurgitation of mitral valve with moderately calcified annulus. Tricuspid valve with mild to moderate regurgitation. - Imaging and Cardiology Chest x-ray Additional comments: Chest x-ray performed 09/21/17 in [place]-negative Assessment and Plan (1) Major depressive disorder, recurrent, severe with psychotic features Current visit: No Status: Acute (2) Chronic kidney disease (CKD) stage G4/A1, severely decreased glomerular filtration rate (GFR) between 15-29 mL/min/1.73 square meter and albuminuria creatinine ratio less than 30 mg/g Current visit: No Status: Chronic Assessment and Plan: Depression-severe Coronary artery disease Obesity Type II diabetes, insulin dependent, uncontrolled. Hypertension. Chronic lower extremity wounds. Chronic kidney disease, stage IV. COPD. Hypothyroidism. Restless leg syndrome. PMR. Chronic pain. Gout. Agree with admission to [facility] unit for further evaluation and treatment by psychiatrist. We'll need to follow his electrolytes closely. Blood sugars are uncontrolled at present. We'll continue to adjust insulin as needed. Care to return to Dr. Antonio upon discharge. Wound team consult to assess and provide treatment plan for dressing changes. Check BMP today and repeat CBC and BMP in the a.m. to follow electrolytes closely. Patient is a DO NOT RESUSCITATE. Patient was seen and examined. I agree with the above assessment and plan. No issues from patient upon my visit. Had some nausea and dizziness this morning that resolved. Gen: Alert and oriented. NAD CV: RRR Lungs: CTAB Ext: no c/c/e. + pulses skin: w/d/i. no rash neuro: no focal signs. Sensation intact. pending labs as above Follow sugars closely, added blood sugar checks. Hospital Course Summary Disclaimer: The visit summary below is not to be considered part of the above Progress Note. Hospital Course: 09/24/17 Agree with admission to [facility] unit for further evaluation and treatment by psychiatrist. We'll need to follow his electrolytes closely. Blood sugars are uncontrolled at present. We'll continue to adjust insulin as needed. Care to return to Dr. Antonio upon discharge. Patient is a DO NOT RESUSCITATE.
[2017-09-24] MEDS ORDERED: INSULIN ASPART 100unit/ml INJECTION SQ SCH (17:30)
[2017-09-24] MEDS: TRAVOPROST 0.004% EYE DROPS 2.5ml EACH EYE SCH ×2 (21:01→21:22)
[2017-09-24] MEDS: ATORVASTATIN 20 MG TABLET PO SCH (21:21)
[2017-09-24] MEDS: DONEPEZIL 10 MG TABLET PO SCH (21:21)
[2017-09-24] MEDS: ROPINIROLE 2 MG TABLET PO SCH (21:22)
[2017-09-24] MEDS: TRAZODONE 100 MG TABLET PO SCH (21:23)
[2017-09-24] MEDS ORDERED: INSULIN GLARGINE 100unit/ml INJECTION SQ ONE (21:42)
[2017-09-24] MEDS: INSULIN GLARGINE 100unit/ml INJECTION SQ SCH (22:08)
[2017-09-25] MEDS: LEVOTHYROXINE 200 MCG TABLET PO SCH (06:05)
[2017-09-25] MEDS: PANTOPRAZOLE 40 MG TABLET PO SCH ×2 (06:05→17:11)
[2017-09-25] MEDS ORDERED: FENOFIBRATE 160 MG TABLET PO SCH (08:00)
[2017-09-25] MEDS: CARVEDILOL 6.25 MG TABLET PO SCH ×2 (09:21→17:12)
[2017-09-25] MEDS: HYDRALAZINE 25 MG TABLET PO SCH ×2 (09:22→17:12)
[2017-09-25] MEDS: PANCRELIPASE PO SCH ×3 (09:23→17:14)
[2017-09-25] MEDS: BUSPIRONE 15 MG TABLET PO SCH ×2 (09:24→20:41)
[2017-09-25] MEDS: CALCIUM 600 + VIT D 400 TABLET PO SCH (09:24)
[2017-09-25] MEDS: ALLOPURINOL 100 MG TABLET PO SCH (09:24)
[2017-09-25] MEDS: FAMOTIDINE 20 MG TABLET PO SCH (09:24)
[2017-09-25] MEDS: ASPIRIN 81 MG CHEWABLE TABLET PO SCH (09:24)
[2017-09-25] MEDS: GABAPENTIN 100 MG CAPSULE PO SCH ×3 (09:25→20:40)
[2017-09-25] MEDS: FERROUS SULFATE 324 MG TABLET PO SCH (09:25)
[2017-09-25] MEDS: HYDROCODONE/APAP 5mg/325mg TABLET PO SCH ×2 (09:26→20:42)
[2017-09-25] MEDS: OLOPATADINE 0.2% EACH EYE SCH (09:26)
[2017-09-25] MEDS: MEMANTINE 5 MG TABLET PO SCH (09:26)
[2017-09-25] MEDS: TRIAMCINOLONE 0.1% CREAM 15 G TUBE TOP SCH ×2 (09:27→21:15)
[2017-09-25] MEDS: POLYETHYL GLYCOL 3350 17gm PACKET PO SCH (09:27)
[2017-09-25] MEDS: ROPINIROLE 1 MG TABLET PO SCH ×2 (09:27→20:39)
[2017-09-25] MEDS: INSULIN ASPART 100unit/ml INJECTION SQ SCH ×3 (09:33→17:14)
--- NOTE | 2017-09-25 11:14 | Neuropsych Progress Note ---
[facility] Subjective Date: 09/25/17 - Sujective/Severity of Illness Medications: Acetaminophen (Tylenol) 650 mg PO Q4HR PRN PRN Reason: Pain Hydrocodone Bitart/Acetaminophen ([place] 5/325) 1 tab PO BID [facility] Last Admin: 09/25/17 09:26 Dose: 1 tab Allopurinol (Zyloprim) 200 mg PO DAILY [facility] Last Admin: 09/25/17 09:24 Dose: 200 mg Lipase/Protease/Amylase (Pancreaze Dr) 2 cap PO TIDWM [facility] Last Admin: 09/25/17 09:23 Dose: 2 cap Artificial Tears (Refresh Classic) 1 drop EACH EYE PRN PRN Last Admin: 09/23/17 21:42 Dose: 1 drop Aspirin (Asa) 81 mg PO DAILY [facility] Last Admin: 09/25/17 09:24 Dose: 81 mg Atorvastatin Calcium (Lipitor) 20 mg PO HS [facility] Last Admin: 09/24/17 21:21 Dose: 20 mg Buspirone HCl (Buspar) 15 mg PO BID [facility] Last Admin: 09/25/17 09:24 Dose: 15 mg Calcium/Vitamin D (Caltrate + D) 1 tab PO DAILY [facility] Last Admin: 09/25/17 09:24 Dose: 1 tab Carvedilol (Coreg) 6.25 mg PO BIDWM [facility] Last Admin: 09/25/17 09:21 Dose: 6.25 mg Cyclobenzaprine HCl (Flexeril) 10 mg PO TID PRN PRN Reason: Muscle spasm Donepezil HCl (Aricept) 10 mg PO HS [facility] Last Admin: 09/24/17 21:21 Dose: 10 mg Famotidine (Pepcid) 20 mg PO BID [facility] Last Admin: 09/25/17 09:24 Dose: 20 mg Fenofibrate (Lofibra) 160 mg PO WB [facility] Last Admin: 09/25/17 09:22 Dose: 160 mg Ferrous Sulfate (Feosol) 324 mg PO DAILY [facility] Last Admin: 09/25/17 09:25 Dose: 324 mg Furosemide (Lasix) 40 mg PO [id number] [facility] Last Admin: 09/24/17 17:05 Dose: 40 mg Gabapentin (Neurontin) 100 mg PO TID [facility] Last Admin: 09/25/17 09:25 Dose: 100 mg Hydralazine HCl (Apresoline) 25 mg PO BIDWM [facility] Last Admin: 09/25/17 09:22 Dose: 25 mg Insulin Aspart (Novolog) 26 unit SQ WL [facility] Last Admin: 09/24/17 12:22 Dose: 26 unit Insulin Aspart (Novolog) 10 unit SQ WB [facility] Last Admin: 09/25/17 09:33 Dose: 10 unit Insulin Aspart (Novolog) 35 unit SQ WS [facility] Last Admin: 09/24/17 18:06 Dose: Not Given Insulin Aspart (Novolog) 3 - 12 unit SQ SS PRN; Protocol PRN Reason: Hyperglycemia Insulin Glargine (Lantus) 98 unit SQ HS [facility] Last Admin: 09/24/17 22:08 Dose: Not Given Levothyroxine Sodium (Synthroid) 200 mcg PO MoWeFr@629 [facility] Last Admin: 09/25/17 06:05 Dose: 200 mcg Levothyroxine Sodium (Synthroid) 175 mcg PO SuTuThSa@0630 [facility] Last Admin: 09/24/17 05:34 Dose: 175 mcg Linagliptin (Tradjenta) 5 mg PO DAILY [facility] Last Admin: 09/25/17 09:25 Dose: 5 mg Loperamide HCl (Imodium) 2 mg PO PRN PRN; Protocol PRN Reason: Loose stools Last Admin: 09/23/17 21:34 Dose: 2 mg Memantine (Namenda) 5 mg PO DAILY [facility] Last Admin: 09/25/17 09:26 Dose: 5 mg Olopatadine HCl (Pataday) 1 drop EACH EYE DAILY [facility] Last Admin: 09/25/17 09:26 Dose: 1 drop Pantoprazole Sodium (Protonix Tab) 40 mg PO ACBID [facility] Last Admin: 09/25/17 06:05 Dose: 40 mg Polyethylene Glycol (Miralax) 17 gm PO DAILY [facility] Last Admin: 09/25/17 09:27 Dose: Not Given Ropinirole HCl (Requip) 2 mg PO HS [facility] Last Admin: 09/24/17 21:22 Dose: 2 mg Ropinirole HCl (Requip) 1 mg PO DAILY [facility] Last Admin: 09/25/17 09:27 Dose: 1 mg Sodium Polystyrene Sulfonate (Kayexelate) 15 gm PO MOWEFR [facility] Last Admin: 09/24/17 01:03 Dose: 15 gm Travoprost (Travatan Z) 1 drops EACH EYE [facility] Last Admin: 09/24/17 21:22 Dose: 1 drops Trazodone HCl (Desyrel) 150 mg PO HS [facility] Last Admin: 09/24/17 21:23 Dose: 150 mg Triamcinolone Acetonide (Kenalog) 1 applic TOP BID [facility] Last Admin: 09/25/17 09:27 Dose: 1 applic Venlafaxine HCl (Effexor Xr) 150 mg PO WB [facility] Last Admin: 09/25/17 09:23 Dose: 150 mg Subjective: Patient seen and chart reviewed. Case discussed with treatment team. On interview, patient is calm and cooperative. He reports that his mood is "okay " and now denies SI, but reports worrying frequently about impending . He states that his doctor has told him this and he hears his loved ones in his ear telling them they'll be coming for him soon. Patient denies any SI, HI or AH. Patient denies any adverse side effects related to psychotropic medications. Nursing staff report patient has been isolative to his room and appeared anxious much of yesterday but appears brighter, more spontaneous this morning. Patient slept 8 hours overnight. VSS. Patient is eating well. Psychotropic PRNs required in the past 24 hours: none. Start Time: 09:00 Stop Time: 09:20 Mental Status Exam Vitals: Last Vital Signs Temp 98.5 F 09/25/17 09:33 Pulse 86 09/25/17 09:33 Resp 22 09/25/17 09:33 BP 122/69 09/25/17 09:33 Pulse Ox 92 09/25/17 09:33 Height: 1.63 m Weight: 82 kg - Mental Status Exam Muscle Strength/Tone: Normal Dressing: Casual Grooming: Fair Attitude: Cooperative Motor Activity: Normal Eye Contact: Good Speech: Normal Volume: Normal Rhythm: Appropriate Rhythm Orientation: Disoriented to time, Oriented to person, Oriented to place Mood: Anxious Affect: Sad Rate of Thoughts: Appropriate Rate Thought Organization: Organized Associations: Intact Abstract Reasoning: Poor abstract reasoning Thought Content: Ruminations, Somatic Concerns Perception/Psychotic: Other (possible AH vs. audible thoughts (see HPI)) Current Hallucinations: Auditory Language: Naming Intact Fund of Knowledge: Chhaya aware current events (believed fund of knowledge below average at baseline) Memory: Poor-recent Suicidal Ideation: Other (Denies currently, admitted recently) Homicidal Ideation: Other (Denies currently, admitted recently ) Insight: Limited Judgement: Limited Impulse Control: Fair - Laboratory Result Diagrams: 09/25/17 06:41 09/25/17 06:41 Laboratory Results - last 24 hr 09/24/17 09/24/17 09/24/17 11:47 14:03 15:54 WBC RBC Hgb Hct MCV MCH MCHC RDW Std Deviation Plt Count MPV Immature Gran % (Auto) Neut % (Auto) Lymph % (Auto) [place] % (Auto) Eos % (Auto) Baso % (Auto) Neut # (Auto) Lymph # (Auto) [place] # (Auto) Eos # (Auto) Baso # (Auto) Abs Immat Gran (auto) Turbidity Sodium Potassium Chloride Carbon Dioxide Anion Gap BUN Creatinine GFR Calculation BUN/Creatinine Ratio Glucose Glucometer 354 352 299 Calculated Osmolality Calcium Icterus Index Specimen Hemolysis 09/24/17 09/24/17 09/25/17 18:55 20:16 02:11 WBC RBC Hgb Hct MCV MCH MCHC RDW Std Deviation Plt Count MPV Immature Gran % (Auto) Neut % (Auto) Lymph % (Auto) Atlantic % (Auto) Eos % (Auto) Baso % (Auto) Neut # (Auto) Lymph # (Auto) [place] # (Auto) Eos # (Auto) Baso # (Auto) Abs Immat Gran (auto) Turbidity < 20 Sodium 137 Potassium 5.5 H Chloride 101 Carbon Dioxide 23 Anion Gap 13 BUN 58.0 H* Creatinine 2.5 H GFR Calculation 26 BUN/Creatinine Ratio 23 Glucose 229 H Glucometer 187 81 Calculated Osmolality 287 H Calcium 9.4 Icterus Index < 2 Specimen Hemolysis 55 H 09/25/17 09/25/17 09/25/17 06:16 06:41 06:41 WBC 6.0 RBC 3.86 L Hgb 10.7 L Hct 34.3 L MCV 88.9 MCH 27.7 MCHC 31.2 RDW Std Deviation 45.1 Plt Count 340 MPV 10.3 Immature Gran % (Auto) 0.8 H Neut % (Auto) 58.6 Lymph % (Auto) 27.1 Atlantic % (Auto) 8.7 Eos % (Auto) 4.3 H Baso % (Auto) 0.5 Neut # (Auto) 3.5 Lymph # (Auto) 1.6 [place] # (Auto) 0.5 Eos # (Auto) 0.3 Baso # (Auto) 0.0 Abs Immat Gran (auto) 0.05 H Turbidity < 20 Sodium 134 Potassium 3.9 D Chloride 93 L D Carbon Dioxide 26 Anion Gap 15 BUN 57.0 H* Creatinine 2.3 H D GFR Calculation 29 BUN/Creatinine Ratio 25 Glucose 119 H Glucometer 125 Calculated Osmolality 275 Calcium 8.6 D Icterus Index < 2 Specimen Hemolysis 30 H Assessment and Plan (1) Major depressive disorder, recurrent, severe with psychotic features Current visit: No Status: Acute (2) Hypertension Qualifiers: Hypertension type: essential hypertension Qualified Code(s): I10 - Essential (primary) hypertension Current visit: No Status: Acute (3) Hyperkalemia Current visit: No Status: Acute (4) Chronic kidney disease (CKD) stage G4/A1, severely decreased glomerular filtration rate (GFR) between 15-29 mL/min/1.73 square meter and albuminuria creatinine ratio less than 30 mg/g Current visit: No Status: Chronic Hospital Course Summary Disclaimer: The visit summary below is not to be considered part of the above Progress Note. Hospital Course: 09/24/17 Agree with admission to [facility] for further evaluation and treatment by psychiatrist. We'll need to follow his electrolytes closely. Blood sugars are uncontrolled at present. We'll continue to adjust insulin as needed. Care to return to Dr. Antonio upon discharge. Patient is a DO NOT RESUSCITATE. 09/25/17 Psych: Will continue with plan to decrease meds that may be contributing to depressed mood or patient feeling poorly physically. Today will decraese cyclobenzaprine to 5mg PO TID, decrease Ropinirole to 1mg PO BID ( rather than 2 at HS) and monitor response.
[2017-09-25] MEDS: CYCLOBENZAPRINE 10 MG TABLET PO PRN (11:46)
[2017-09-25] MEDS: INSULIN ASPART 100unit/ml INJECTION SQ PRN ×2 (12:26→15:15)
--- NOTE | 2017-09-25 15:32 | Progress Note ---
- Date 09/25/17 Subjective: Raimundo is seen today in follow up for his severe depression and CKD stage IV. He is seen while sitting in the day room listening to music with other patients. He greets me with a smile and states that he is doing good. He denies any SI/ HI. Records indicate that he has been anxious and worrying about leading to isolative behaviors. He admits to having generalized body aches this morning which was relieved with pain medication and denies any current pain. No chest pain, shortness of breath, abdominal pain, nausea, vomiting or dysuria. No fevers, chills, cough or congestion. His appetite has been good and his bowels are moving. He denies any dizziness, lightheadedness or near- syncope. Heart rate has remained stable. Blood sugars have been well controlled. Review of prior records indicates A1c on 09/17/17 was elevated at 8.6. Repeat labs today revealed stable anemia and slight improvement in BUN/ SCr at 57 and 2.3 respectively. Baseline SCr suspected to be around 2.5. Dr. Mcknight continues to wean down medication list due to polypharmacy and has decreased cyclobenzaprine to 5mg TID and decreased ropinirole to 1mg BID to see if there is an improvement in behaviors. Objective Vital signs: Temperature 98.5 F 09/25/17 09:33 Pulse Rate 86 09/25/17 09:33 Respiratory Rate 22 09/25/17 09:33 Blood Pressure 122/69 09/25/17 09:33 Pulse Oximetry 92 09/25/17 09:33 Height/Weight/BMI: Height 5 ft 4 in Weight 180 lb 12.465 oz Body Mass Index 31.0 Comments: Patient seen while sitting in the day room, listening to music with the other patients; no acute distress. - Constitutional Present: no acute distress, well nourished, well developed, obese, cooperative - Routine HEENT Exam Head: Present: normocephalic, atraumatic Eye: Present: PERRL. Absent: conjunctival icterus ENT: Present: mucous membranes dry - Routine Respiratory Exam Present: decreased breath sounds. Absent: rales, respiratory distress, rhonchi , stridor, wheezes, crackles - Routine Cardiovascular Exam Present: RRR, S1, S2 - Routine Abdominal Exam Present: soft, normoactive bowel sounds, non tender, distended. Absent: guarding, firm, rigid - Routine Extremities Exam Present: edema (1+ bilaterally), pulses intact Comments: generalized lower extremity tenderness with palpation bilaterally. - Routine Back/Spine/Pelvis Exam Back/Spine: Absent: vertebral tenderness - Routine Musculoskeletal Exam Musculoskeletal: Present: moving extremities well - Routine Skin Exam Present: dry, warm. Absent: jaundice Comments: afebrile; PVD changes noted to bilateral lower extremities; - Routine Neurological Exam Present: alert, moving all extremities, hearing grossly intact, normal speech - Routine Lymphatic Exam Lymphatic: Absent: lymphedema - Routine Psychiatric Exam Present: cooperative Results - Labs CBC & Chem 7: 09/25/17 06:41 09/25/17 06:41 Assessment and Plan (1) Major depressive disorder, recurrent, severe with psychotic features Current visit: No Status: Acute (2) Chronic kidney disease (CKD) stage G4/A1, severely decreased glomerular filtration rate (GFR) between 15-29 mL/min/1.73 square meter and albuminuria creatinine ratio less than 30 mg/g Current visit: No Status: Chronic Assessment and Plan: Assessment Depression-severe Coronary artery disease Obesity Type II diabetes, insulin dependent, uncontrolled. Hypertension. Chronic lower extremity wounds. Chronic kidney disease, stage IV. COPD. Hypothyroidism. Restless leg syndrome. PMR. Chronic pain. Gout. Plan - 09/25/17 (Mirakian) Overall, Raimundo appears medically stable and at his baseline with regard to renal function. Continue psychiatric care per team. Continue to provide safe and supportive environment and encourage participation in floor activities as he reportedly has been isolating himself recently. Nursing indicates he has expressed anxiety and worrying about . Labs today are stable with persistent anemia (Hgb 10.7). BUN and SCr 57 and 2.3 respectively. Baseline SCr around 2.5. Will continue to follow electrolytes closely. Continue Kayexalate Mon-Wed-Fri for hyperkalemia. Current potassium 3.9. Pharmacy to do renal dosing. Blood sugars well controlled. Continue to monitor closely. A1c on 09/17 was elevated at 8.6. Will continue Novolog 10 units breakfast, 26 units lunch and 35 units dinner as well as Lantus 98 units HS and Tradjenta 5mg. May consider consulting Dr. Sanches if additional changes are warranted. Generalized body aches this morning. Patient denies other symptoms and aches were relieved with pain medication. Continue to monitor for signs of infection , fever, etc. Dr. Mcknight is slowing tapering cyclobenzaprine and ropinirole to see if any mood improvement is noted. History of GERD. Home medications indicate both Pepcid and Protonix. Given polypharmacy, will discontinue Pepcid. Monitor closely for signs of GERD. Continue wound care for bilateral lower extremity wounds. Recheck labs on 09/28 to monitor blood counts, electrolytes and renal function. Continue to monitor daily weights and signs of fluid overload. Lasix remains on hold due to concern regarding renal function. GI Prophylaxis: Protonix Resuscitation Status: Do Not Resuscitate - Time spent with patient Time with patient PN: 35 minutes - Physician Narriative Physician: other (Dr. Blossom Bass) Hospital Course Summary Disclaimer: The visit summary below is not to be considered part of the above Progress Note. Hospital Course: 09/24/17 Agree with admission to [facility] for further evaluation and treatment by psychiatrist. We'll need to follow his electrolytes closely. Blood sugars are uncontrolled at present. We'll continue to adjust insulin as needed. Care to return to Dr. Antonio upon discharge. Patient is a DO NOT RESUSCITATE. 09/25/17 Psych: Will continue with plan to decrease meds that may be contributing to depressed mood or patient feeling poorly physically. Today will decraese cyclobenzaprine to 5mg PO TID, decrease Ropinirole to 1mg PO BID ( rather than 2 at HS) and monitor response. Plan - 09/25/17 (Mirakian) Overall, Raimundo appears medically stable and at his baseline with regard to renal function. Continue psychiatric care per team. Continue to provide safe and supportive environment and encourage participation in floor activities as he reportedly has been isolating himself recently. Nursing indicates he has expressed anxiety and worrying about . Labs today are stable with persistent anemia (Hgb 10.7). BUN and SCr 57 and 2.3 respectively. Baseline SCr around 2.5. Will continue to follow electrolytes closely. Continue Kayexalate Mon-Wed-Fri for hyperkalemia. Current potassium 3.9. Pharmacy to do renal dosing. Blood sugars well controlled. Continue to monitor closely. A1c on 09/17 was elevated at 8.6. Will continue Novolog 10 units breakfast, 26 units lunch and 35 units dinner as well as Lantus 98 units HS and Tradjenta 5mg. May consider consulting Dr. Sanches if additional changes are warranted. Generalized body aches this morning. Patient denies other symptoms and aches were relieved with pain medication. Continue to monitor for signs of infection , fever, etc. Dr. Mcknight is slowing tapering cyclobenzaprine and ropinirole to see if any mood improvement is noted. History of GERD. Home medications indicate both Pepcid and Protonix. Given polypharmacy, will discontinue Pepcid. Monitor closely for signs of GERD. Continue wound care for bilateral lower extremity wounds. Recheck labs on 09/28 to monitor blood counts, electrolytes and renal function. Continue to monitor daily weights and signs of fluid overload. Lasix remains on hold due to concern regarding renal function.
[2017-09-25] MEDS ORDERED: RENAL DOSING - PHARMACY CONSULT MC ONE (15:48)
[2017-09-25] MEDS: SODIUM POLYSTYRENE SULFONATE 15 GM/60 ML BOTTLE PO SCH (19:34)
[2017-09-25] MEDS: TRAVOPROST 0.004% EYE DROPS 2.5ml EACH EYE SCH (20:39)
[2017-09-25] MEDS: ATORVASTATIN 20 MG TABLET PO SCH (20:39)
[2017-09-25] MEDS: DONEPEZIL 10 MG TABLET PO SCH (20:42)
[2017-09-25] MEDS: TRAZODONE 100 MG TABLET PO SCH (20:43)
[2017-09-25] MEDS ORDERED: INSULIN GLARGINE 100unit/ml INJECTION SQ ONE (21:16)
[2017-09-25] MEDS: INSULIN GLARGINE 100unit/ml INJECTION SQ SCH (21:24)
[2017-09-26] MEDS: LEVOTHYROXINE 175 MCG TABLET PO SCH (05:54)
[2017-09-26] MEDS: PANTOPRAZOLE 40 MG TABLET PO SCH ×2 (05:54→18:00)
[2017-09-26] MEDS: ALLOPURINOL 100 MG TABLET PO SCH (09:12)
[2017-09-26] MEDS: PANCRELIPASE PO SCH ×3 (09:13→18:00)
[2017-09-26] MEDS: ASPIRIN 81 MG CHEWABLE TABLET PO SCH (09:13)
[2017-09-26] MEDS: GABAPENTIN 100 MG CAPSULE PO SCH ×3 (09:13→20:23)
[2017-09-26] MEDS: BUSPIRONE 15 MG TABLET PO SCH ×2 (09:13→20:22)
[2017-09-26] MEDS: CALCIUM 600 + VIT D 400 TABLET PO SCH (09:14)
[2017-09-26] MEDS: MEMANTINE 5 MG TABLET PO SCH (09:14)
[2017-09-26] MEDS: HYDRALAZINE 25 MG TABLET PO SCH ×2 (09:14→18:00)
[2017-09-26] MEDS: HYDROCODONE/APAP 5mg/325mg TABLET PO SCH ×2 (09:14→21:21)
[2017-09-26] MEDS: CARVEDILOL 6.25 MG TABLET PO SCH ×2 (09:14→18:00)
[2017-09-26] MEDS: INSULIN ASPART 100unit/ml INJECTION SQ SCH ×3 (09:15→18:01)
[2017-09-26] MEDS: OLOPATADINE 0.2% EACH EYE SCH (09:16)
[2017-09-26] MEDS: FERROUS SULFATE 324 MG TABLET PO SCH (09:16)
[2017-09-26] MEDS: ROPINIROLE 1 MG TABLET PO SCH ×2 (09:17→20:24)
[2017-09-26] MEDS: TRIAMCINOLONE 0.1% CREAM 15 G TUBE TOP SCH ×2 (09:18→20:27)
[2017-09-26] MEDS: POLYETHYL GLYCOL 3350 17gm PACKET PO SCH (09:18)
[2017-09-26] MEDS: INSULIN ASPART 100unit/ml INJECTION SQ PRN (10:04)
[2017-09-26] MEDS: CYCLOBENZAPRINE 10 MG TABLET PO PRN ×2 (14:12→23:56)
--- NOTE | 2017-09-26 15:12 | Pharmacy Consult- Renal Dosing ---
Jeremi Nolan-Renal Dosing - Laboratory Information 09/24/17 09/25/17 18:55 06:41 BUN 58.0 H* 57.0 H* Creatinine 2.5 H 2.3 H D - Consult Information RENAL DOSING consult: Calculated CrCl = ~30 ml/min. Medications with potential need for adjustment: Allopurinol: dose appropriate, if est CrCl drops to < 10 ml/min then consider decreasing dose to 100 mg po daily. Buspirone: dose decreased by 50% to 7.5 mg po BID Fenofibrate: placed on hold, consider DC Gabapentin: dose appropriate, if CrCl drops below 30 ml/min, consider DC. Memantine: dose okay, Venlafaxine: consider dose decrease of 25 to 50% Reviewed this list with Bettina Carlos and adjusted Buspirone and placed Fenofibrate on hold. Thank you for the renal dosing consult, Cecilia Naik RPh
[2017-09-26] MEDS ORDERED: INSULIN GLARGINE 100unit/ml INJECTION SQ SCH (16:41)
--- NOTE | 2017-09-26 16:43 | Progress Note ---
Progress Note: Nurses wondering about insulin dosing as patient has had some lower BS's and wasn't given his usual dose of lantus last night. Adjusted sliding insulin dosing to more conservative dosing and decreased Lantus to 92 U from 98 U.
--- NOTE | 2017-09-26 16:59 | Neuropsych Progress Note ---
[facility] Subjective Date: 09/27/17 - Sujective/Severity of Illness Medications: Acetaminophen (Tylenol) 650 mg PO Q4HR PRN PRN Reason: Pain Hydrocodone Bitart/Acetaminophen ([place] 5/325) 1 tab PO BID [facility] Last Admin: 09/26/17 09:14 Dose: 1 tab Allopurinol (Zyloprim) 200 mg PO DAILY [facility] Last Admin: 09/26/17 09:12 Dose: 200 mg Lipase/Protease/Amylase (Pancreaze Dr) 2 cap PO TIDWM [facility] Last Admin: 09/26/17 11:24 Dose: 2 cap Artificial Tears (Refresh Classic) 1 drop EACH EYE PRN PRN Last Admin: 09/23/17 21:42 Dose: 1 drop Aspirin (Asa) 81 mg PO DAILY [facility] Last Admin: 09/26/17 09:13 Dose: 81 mg Atorvastatin Calcium (Lipitor) 20 mg PO HS [facility] Last Admin: 09/25/17 20:39 Dose: 20 mg Buspirone HCl (Buspar) 7.5 mg PO BID [facility] Last Admin: 09/26/17 09:13 Dose: 7.5 mg Calcium/Vitamin D (Caltrate + D) 1 tab PO DAILY [facility] Last Admin: 09/26/17 09:14 Dose: 1 tab Carvedilol (Coreg) 6.25 mg PO BIDWM [facility] Last Admin: 09/26/17 09:14 Dose: 6.25 mg Cyclobenzaprine HCl (Flexeril) 5 mg PO TID PRN PRN Reason: Muscle spasm Last Admin: 09/26/17 14:12 Dose: 5 mg Donepezil HCl (Aricept) 10 mg PO HS [facility] Last Admin: 09/25/17 20:42 Dose: 10 mg Fenofibrate (Lofibra) 160 mg PO WB [facility] Last Admin: 09/25/17 09:22 Dose: 160 mg Ferrous Sulfate (Feosol) 324 mg PO DAILY [facility] Last Admin: 09/26/17 09:16 Dose: 324 mg Furosemide (Lasix) 40 mg PO [id number] [facility] Last Admin: 09/24/17 17:05 Dose: 40 mg Gabapentin (Neurontin) 100 mg PO TID [facility] Last Admin: 09/26/17 15:14 Dose: 100 mg Hydralazine HCl (Apresoline) 25 mg PO BIDWM [facility] Last Admin: 09/26/17 09:14 Dose: 25 mg Insulin Aspart (Novolog) 26 unit SQ WL [facility] Last Admin: 09/26/17 11:54 Dose: 26 unit Insulin Aspart (Novolog) 10 unit SQ WB [facility] Last Admin: 09/26/17 09:15 Dose: 10 unit Insulin Aspart (Novolog) 35 unit SQ WS [facility] Last Admin: 09/25/17 17:14 Dose: 35 unit Insulin Aspart (Novolog) 3 - 12 unit SQ SS PRN; Protocol PRN Reason: Hyperglycemia Last Admin: 09/26/17 10:04 Dose: 7 unit Insulin Glargine (Lantus) 92 unit SQ HS [facility] Levothyroxine Sodium (Synthroid) 200 mcg PO MoWeFr@629 [facility] Last Admin: 09/25/17 06:05 Dose: 200 mcg Levothyroxine Sodium (Synthroid) 175 mcg PO SuTuThSa@0630 [facility] Last Admin: 09/26/17 05:54 Dose: 175 mcg Linagliptin (Tradjenta) 5 mg PO DAILY [facility] Last Admin: 09/26/17 09:14 Dose: 5 mg Loperamide HCl (Imodium) 2 mg PO PRN PRN; Protocol PRN Reason: Loose stools Last Admin: 09/23/17 21:34 Dose: 2 mg Memantine (Namenda) 5 mg PO DAILY [facility] Last Admin: 09/26/17 09:14 Dose: 5 mg Olopatadine HCl (Pataday) 1 drop EACH EYE DAILY [facility] Last Admin: 09/26/17 09:16 Dose: 1 drop Pantoprazole Sodium (Protonix Tab) 40 mg PO ACBID [facility] Last Admin: 09/26/17 05:54 Dose: 40 mg Polyethylene Glycol (Miralax) 17 gm PO DAILY [facility] Last Admin: 09/26/17 09:18 Dose: Not Given Ropinirole HCl (Requip) 1 mg PO BID [facility] Last Admin: 09/26/17 09:17 Dose: 1 mg Sodium Polystyrene Sulfonate (Kayexelate) 15 gm PO MOWEFR [facility] Last Admin: 09/25/17 19:34 Dose: 15 gm Travoprost (Travatan Z) 1 drops EACH EYE [facility] Last Admin: 09/25/17 20:39 Dose: 1 drops Trazodone HCl (Desyrel) 150 mg PO HS [facility] Last Admin: 09/25/17 20:43 Dose: 150 mg Triamcinolone Acetonide (Kenalog) 1 applic TOP BID [facility] Last Admin: 09/26/17 09:18 Dose: 1 applic Venlafaxine HCl (Effexor Xr) 150 mg PO WB [facility] Last Admin: 09/26/17 09:14 Dose: 150 mg Subjective: Patient seen and chart reviewed. Case discussed with treatment team. On interview, patient is calm and cooperative. He reports that his mood is "alright" but feels it was difficult to sleep because his back was hurting. Patient denies any SI, HI or AH. Patient denies any adverse side effects related to psychotropic medications. Nursing staff report patient has been less isolative and has appeared brighter and more spontaneous today. No behavioral difficulties. He has been adherent with his medications. Patient slept only 45 minutes overnight. VSS. Patient is eating well. Psychotropic PRNs required in the past 24 hours: none. Start Time: 09:00 Stop Time: 09:20 Mental Status Exam Vitals: Last Vital Signs Temp 97.2 F 09/26/17 16:12 Pulse 75 09/26/17 16:12 Resp 18 09/26/17 16:12 BP 135/65 09/26/17 16:12 Pulse Ox 98 09/26/17 16:12 Height: 1.63 m Weight: 82 kg - Mental Status Exam Muscle Strength/Tone: Normal Dressing: Casual Grooming: Fair Attitude: Cooperative Motor Activity: Normal Eye Contact: Good Speech: Normal Volume: Normal Rhythm: Appropriate Rhythm Orientation: Disoriented to time, Oriented to person, Oriented to place Mood: Neutral (affect brighter than previously seen) Affect: Relaxed Rate of Thoughts: Appropriate Rate Thought Organization: Organized Associations: Intact Abstract Reasoning: Poor abstract reasoning Thought Content: Ruminations (improving), Somatic Concerns Perception/Psychotic: Other (possible AH vs. audible thoughts (see HPI)) Current Hallucinations: Auditory Language: Naming Intact Fund of Knowledge: Chhaya aware current events (believed fund of knowledge below average at baseline) Memory: Poor-recent Suicidal Ideation: Other (Denies currently, admitted recently) Homicidal Ideation: Other (Denies currently, admitted recently ) Insight: Limited Judgement: Limited Impulse Control: Good - Laboratory Result Diagrams: 09/25/17 06:41 09/25/17 06:41 Laboratory Results - last 24 hr 09/25/17 09/26/17 09/26/17 20:37 05:51 09:58 Glucometer 141 105 256 09/26/17 14:18 Glucometer 78 Assessment and Plan (1) Major depressive disorder, recurrent, severe with psychotic features Current visit: No Status: Acute (2) Hypertension Qualifiers: Hypertension type: essential hypertension Qualified Code(s): I10 - Essential (primary) hypertension Current visit: No Status: Acute (3) Hyperkalemia Current visit: No Status: Acute (4) Chronic kidney disease (CKD) stage G4/A1, severely decreased glomerular filtration rate (GFR) between 15-29 mL/min/1.73 square meter and albuminuria creatinine ratio less than 30 mg/g Current visit: No Status: Chronic Hospital Course Summary Disclaimer: The visit summary below is not to be considered part of the above Progress Note. Hospital Course: 09/24/17 Agree with admission to [facility] for further evaluation and treatment by psychiatrist. We'll need to follow his electrolytes closely. Blood sugars are uncontrolled at present. We'll continue to adjust insulin as needed. Care to return to Dr. Antonio upon discharge. Patient is a DO NOT RESUSCITATE. 09/25/17 Psych: Will continue with plan to decrease meds that may be contributing to depressed mood or patient feeling poorly physically. Today will decraese cyclobenzaprine to 5mg PO TID, decrease Ropinirole to 1mg PO BID ( rather than 2 at HS) and monitor response. Plan - 09/25/17 (Mirakian) Overall, Raimundo appears medically stable and at his baseline with regard to renal function. Continue psychiatric care per team. Continue to provide safe and supportive environment and encourage participation in floor activities as he reportedly has been isolating himself recently. Nursing indicates he has expressed anxiety and worrying about . Labs today are stable with persistent anemia (Hgb 10.7). BUN and SCr 57 and 2.3 respectively. Baseline SCr around 2.5. Will continue to follow electrolytes closely. Continue Kayexalate Mon-Wed-Fri for hyperkalemia. Current potassium 3.9. Pharmacy to do renal dosing. Blood sugars well controlled. Continue to monitor closely. A1c on 09/17 was elevated at 8.6. Will continue Novolog 10 units breakfast, 26 units lunch and 35 units dinner as well as Lantus 98 units HS and Tradjenta 5mg. May consider consulting Dr. Sanches if additional changes are warranted. Generalized body aches this morning. Patient denies other symptoms and aches were relieved with pain medication. Continue to monitor for signs of infection , fever, etc. Dr. Mcknight is slowing tapering cyclobenzaprine and ropinirole to see if any mood improvement is noted. History of GERD. Home medications indicate both Pepcid and Protonix. Given polypharmacy, will discontinue Pepcid. Monitor closely for signs of GERD. Continue wound care for bilateral lower extremity wounds. Recheck labs on 09/28 to monitor blood counts, electrolytes and renal function. Continue to monitor daily weights and signs of fluid overload. Lasix remains on hold due to concern regarding renal function. 09/26/17 Psych: Plan to stop Namenda, taper/discontinue donepezil as they have not been shown effective in vascular dementia. Will also start melatonin 5mg PO q HS to target sleep as patient slept only 45 minutes overnight. Will also order heating pad for patient.
[2017-09-26] MEDS ORDERED: DONEPEZIL 10 MG TABLET PO SCH (17:02)
[2017-09-26] MEDS: ATORVASTATIN 20 MG TABLET PO SCH (20:23)
[2017-09-26] MEDS: TRAVOPROST 0.004% EYE DROPS 2.5ml EACH EYE SCH (20:26)
[2017-09-26] MEDS ORDERED: MELATONIN 5 MG TABLET PO SCH (21:00)
[2017-09-26] MEDS: TRAZODONE 100 MG TABLET PO SCH (21:22)
[2017-09-27] MEDS: PANTOPRAZOLE 40 MG TABLET PO SCH ×2 (05:59→17:31)
[2017-09-27] MEDS: LEVOTHYROXINE 175 MCG TABLET PO SCH (05:59)
[2017-09-27] MEDS: CARVEDILOL 6.25 MG TABLET PO SCH ×2 (08:03→17:24)
[2017-09-27] MEDS: INSULIN ASPART 100unit/ml INJECTION SQ SCH ×3 (08:04→17:27)
[2017-09-27] MEDS: PANCRELIPASE PO SCH ×3 (08:04→17:23)
[2017-09-27] MEDS: HYDRALAZINE 25 MG TABLET PO SCH ×2 (08:04→17:24)
[2017-09-27] MEDS: ALLOPURINOL 100 MG TABLET PO SCH (08:05)
[2017-09-27] MEDS: BUSPIRONE 15 MG TABLET PO SCH ×2 (08:05→20:45)
[2017-09-27] MEDS: ASPIRIN 81 MG CHEWABLE TABLET PO SCH (08:05)
[2017-09-27] MEDS: CALCIUM 600 + VIT D 400 TABLET PO SCH (08:06)
[2017-09-27] MEDS: MEMANTINE 5 MG TABLET PO SCH (08:06)
[2017-09-27] MEDS: GABAPENTIN 100 MG CAPSULE PO SCH ×2 (08:06→15:12)
[2017-09-27] MEDS: HYDROCODONE/APAP 5mg/325mg TABLET PO SCH ×2 (08:06→20:47)
[2017-09-27] MEDS: FERROUS SULFATE 324 MG TABLET PO SCH (08:06)
[2017-09-27] MEDS: OLOPATADINE 0.2% EACH EYE SCH (08:07)
[2017-09-27] MEDS: ROPINIROLE 1 MG TABLET PO SCH ×2 (08:07→20:48)
[2017-09-27] MEDS: TRIAMCINOLONE 0.1% CREAM 15 G TUBE TOP SCH ×2 (08:07→20:50)
[2017-09-27] MEDS: POLYETHYL GLYCOL 3350 17gm PACKET PO SCH (08:07)
[2017-09-27] MEDS: INSULIN ASPART 100unit/ml INJECTION SQ PRN (10:45)
--- NOTE | 2017-09-27 14:15 | Progress Note ---
Progress Note: Nursing called requesting assessment for sutures in groin that are reddened. RN cannot determine when they were placed per her report, and is unsure if they should be removed. Transfer records reviewed by this provider- Dialysis cath documented removed on date of dismissal 09/23/17 from [facility]. Patient also verbally reports to me that the catheter was removed this week on Thu or . Right groin- two sutures in place that appear fairly recent. Mild redness and swelling the area. He also has significant chronic fungal changes in skin folds. No obvious open areas. RN reports yeast under pannus. Chart is reviewed- recent acute renal failure requiring dialysis; resolved. Pt. needs to follow up with Dr. Kent in 1-2 weeks. Will start Keflex for sites of early site infection concern (mild- 5 days should be adequate). Add nystatin cream as this appears chronic and needs to penetrate the tissue. D/ W RN. They need to keep an occlusive dressing over the site until the sutures come out and it needs to be changed daily to assess the site. Orders entered. Pt. in agreement.
--- NOTE | 2017-09-27 15:40 | Neuropsych Progress Note ---
[facility] Subjective Date: 09/27/17 - Sujective/Severity of Illness Medications: Acetaminophen (Tylenol) 650 mg PO Q4HR PRN PRN Reason: Pain Hydrocodone Bitart/Acetaminophen ([place] 5/325) 1 tab PO BID [facility] Last Admin: 09/27/17 08:06 Dose: 1 tab Allopurinol (Zyloprim) 200 mg PO DAILY [facility] Last Admin: 09/27/17 08:05 Dose: 200 mg Lipase/Protease/Amylase (Pancreaze Dr) 2 cap PO TIDWM [facility] Last Admin: 09/27/17 11:59 Dose: 2 cap Artificial Tears (Refresh Classic) 1 drop EACH EYE PRN PRN Last Admin: 09/23/17 21:42 Dose: 1 drop Aspirin (Asa) 81 mg PO DAILY [facility] Last Admin: 09/27/17 08:05 Dose: 81 mg Atorvastatin Calcium (Lipitor) 20 mg PO HS [facility] Last Admin: 09/26/17 20:23 Dose: 20 mg Buspirone HCl (Buspar) 7.5 mg PO BID [facility] Last Admin: 09/27/17 08:05 Dose: 7.5 mg Calcium/Vitamin D (Caltrate + D) 1 tab PO DAILY [facility] Last Admin: 09/27/17 08:06 Dose: 1 tab Carvedilol (Coreg) 6.25 mg PO BIDWM [facility] Last Admin: 09/27/17 08:03 Dose: 6.25 mg Cephalexin HCl (Keflex) 500 mg PO BID [facility] Last Admin: 09/27/17 15:12 Dose: 500 mg Cyclobenzaprine HCl (Flexeril) 5 mg PO TID PRN PRN Reason: Muscle spasm Last Admin: 09/26/17 23:56 Dose: 5 mg Donepezil HCl (Aricept) 5 mg PO HS [facility] Last Admin: 09/26/17 20:23 Dose: 5 mg Fenofibrate (Lofibra) 160 mg PO WB [facility] Last Admin: 09/25/17 09:22 Dose: 160 mg Ferrous Sulfate (Feosol) 324 mg PO DAILY [facility] Last Admin: 09/27/17 08:06 Dose: 324 mg Furosemide (Lasix) 40 mg PO [id number] [facility] Last Admin: 09/24/17 17:05 Dose: 40 mg Gabapentin (Neurontin) 100 mg PO TID [facility] Last Admin: 09/27/17 15:12 Dose: 100 mg Hydralazine HCl (Apresoline) 25 mg PO BIDWM [facility] Last Admin: 09/27/17 08:04 Dose: 25 mg Insulin Aspart (Novolog) 26 unit SQ WL [facility] Last Admin: 09/27/17 11:59 Dose: 26 unit Insulin Aspart (Novolog) 10 unit SQ WB [facility] Last Admin: 09/27/17 08:04 Dose: 10 unit Insulin Aspart (Novolog) 35 unit SQ WS [facility] Last Admin: 09/26/17 18:01 Dose: 35 unit Insulin Aspart (Novolog) 3 - 12 unit SQ SS PRN; Protocol PRN Reason: Hyperglycemia Last Admin: 09/27/17 10:45 Dose: 4 unit Insulin Glargine (Lantus) 30 unit SQ [facility] Levothyroxine Sodium (Synthroid) 200 mcg PO MoWeFr@0630 [facility] Last Admin: 09/25/17 06:05 Dose: 200 mcg Levothyroxine Sodium (Synthroid) 175 mcg PO SuTuThSa@0630 [facility] Last Admin: 09/27/17 05:59 Dose: 175 mcg Linagliptin (Tradjenta) 5 mg PO DAILY [facility] Last Admin: 09/27/17 08:06 Dose: 5 mg Loperamide HCl (Imodium) 2 mg PO PRN PRN; Protocol PRN Reason: Loose stools Last Admin: 09/23/17 21:34 Dose: 2 mg Melatonin (Melatonin) 5 mg PO [facility] Last Admin: 09/26/17 21:21 Dose: 5 mg Memantine (Namenda) 5 mg PO DAILY [facility] Last Admin: 09/27/17 08:06 Dose: 5 mg Nystatin (Mycostatin) 1 applic TP BID [facility] Last Admin: 09/27/17 15:13 Dose: 1 applic Olopatadine HCl (Pataday) 1 drop EACH EYE DAILY [facility] Last Admin: 09/27/17 08:07 Dose: 1 drop Pantoprazole Sodium (Protonix Tab) 40 mg PO ACBID [facility] Last Admin: 09/27/17 05:59 Dose: 40 mg Polyethylene Glycol (Miralax) 17 gm PO DAILY [facility] Last Admin: 09/27/17 08:07 Dose: 17 gm Ropinirole HCl (Requip) 1 mg PO BID [facility] Last Admin: 09/27/17 08:07 Dose: 1 mg Sodium Polystyrene Sulfonate (Kayexelate) 15 gm PO MOWEFR [facility] Last Admin: 09/25/17 19:34 Dose: 15 gm Travoprost (Travatan Z) 1 drops EACH EYE HS [facility] Last Admin: 09/26/17 20:26 Dose: 1 drops Trazodone HCl (Desyrel) 150 mg PO HS [facility] Last Admin: 09/26/17 21:22 Dose: 150 mg Triamcinolone Acetonide (Kenalog) 1 applic TOP BID [facility] Last Admin: 09/27/17 08:07 Dose: 1 applic Venlafaxine HCl (Effexor Xr) 150 mg PO WB [facility] Last Admin: 09/27/17 08:05 Dose: 150 mg Subjective: Patient seen and chart reviewed. Case discussed with treatment team. On interview, patient is calm and cooperative. He reports that his mood is "alright" but complains of anxiety related to the behavior of other patients on the unit. He is quite concrete and is not able to understand that they are not in control of their behavior due to more progressive dementia, even when I attempt to alleviate his concerns and explain this to him - I believe he thinks they are intentionally being disrespectful to staff. Patient denies any SI, HI or VH. Patient denies any adverse side effects related to psychotropic medications. He denies any noticeable change since tapering/discontinuing some of his medications. Nursing staff report patient has continued to do well on the unit and spend more time outside of his room. No behavioral difficulties. He has been adherent with his medications. Patient slept 5+ hours overnight. VSS. Patient is eating well. Psychotropic PRNs required in the past 24 hours: none. Start Time: 09:00 Stop Time: 09:20 Mental Status Exam Vitals: Last Vital Signs Temp 97.4 F 09/27/17 07:50 Pulse 72 09/27/17 07:50 Resp 16 09/27/17 07:50 BP 139/72 09/27/17 07:50 Pulse Ox 94 09/27/17 07:50 Height: 1.63 m Weight: 82 kg - Mental Status Exam Muscle Strength/Tone: Normal Dressing: Casual Grooming: Fair Attitude: Cooperative Motor Activity: Normal Eye Contact: Good Speech: Normal Volume: Normal Rhythm: Appropriate Rhythm Orientation: Disoriented to time, Oriented to person, Oriented to place Mood: Neutral (affect brighter than previously seen) Rate of Thoughts: Appropriate Rate Thought Organization: Organized Associations: Intact Abstract Reasoning: Poor abstract reasoning Thought Content: Somatic Concerns, Other (Frustration with other patients) Perception/Psychotic: Other (possible AH vs. audible thoughts (see HPI)) Current Hallucinations: Auditory Language: Naming Intact Fund of Knowledge: Chhaya aware current events (believed fund of knowledge below average at baseline) Memory: Poor-recent Suicidal Ideation: Other (Denies currently, admitted recently) Homicidal Ideation: Other (Denies currently, admitted recently ) Insight: Limited Judgement: Limited Impulse Control: Good - Laboratory Result Diagrams: 09/25/17 06:41 09/25/17 06:41 Laboratory Results - last 24 hr 09/26/17 09/27/17 09/27/17 20:16 05:51 10:38 Glucometer 171 144 280 Assessment and Plan (1) Major depressive disorder, recurrent, severe with psychotic features Current visit: No Status: Acute (2) Hypertension Qualifiers: Hypertension type: essential hypertension Qualified Code(s): I10 - Essential (primary) hypertension Current visit: No Status: Acute (3) Hyperkalemia Current visit: No Status: Acute (4) Chronic kidney disease (CKD) stage G4/A1, severely decreased glomerular filtration rate (GFR) between 15-29 mL/min/1.73 square meter and albuminuria creatinine ratio less than 30 mg/g Current visit: No Status: Chronic Hospital Course Summary Disclaimer: The visit summary below is not to be considered part of the above Progress Note. Hospital Course: 09/24/17 Agree with admission to [facility] for further evaluation and treatment by psychiatrist. We'll need to follow his electrolytes closely. Blood sugars are uncontrolled at present. We'll continue to adjust insulin as needed. Care to return to Dr. Antonio upon discharge. Patient is a DO NOT RESUSCITATE. 09/25/17 Psych: Will continue with plan to decrease meds that may be contributing to depressed mood or patient feeling poorly physically. Today will decraese cyclobenzaprine to 5mg PO TID, decrease Ropinirole to 1mg PO BID ( rather than 2 at HS) and monitor response. Plan - 09/25/17 (Mirakian) Overall, Raimundo appears medically stable and at his baseline with regard to renal function. Continue psychiatric care per team. Continue to provide safe and supportive environment and encourage participation in floor activities as he reportedly has been isolating himself recently. Nursing indicates he has expressed anxiety and worrying about . Labs today are stable with persistent anemia (Hgb 10.7). BUN and SCr 57 and 2.3 respectively. Baseline SCr around 2.5. Will continue to follow electrolytes closely. Continue Kayexalate Mon-Wed-Fri for hyperkalemia. Current potassium 3.9. Pharmacy to do renal dosing. Blood sugars well controlled. Continue to monitor closely. A1c on 09/17 was elevated at 8.6. Will continue Novolog 10 units breakfast, 26 units lunch and 35 units dinner as well as Lantus 98 units HS and Tradjenta 5mg. May consider consulting Dr. Sanches if additional changes are warranted. Generalized body aches this morning. Patient denies other symptoms and aches were relieved with pain medication. Continue to monitor for signs of infection , fever, etc. Dr. Mcknight is slowing tapering cyclobenzaprine and ropinirole to see if any mood improvement is noted. History of GERD. Home medications indicate both Pepcid and Protonix. Given polypharmacy, will discontinue Pepcid. Monitor closely for signs of GERD. Continue wound care for bilateral lower extremity wounds. Recheck labs on 09/28 to monitor blood counts, electrolytes and renal function. Continue to monitor daily weights and signs of fluid overload. Lasix remains on hold due to concern regarding renal function. 09/26/17 Psych: Plan to stop Namenda, taper/discontinue donepezil as they have not been shown effective in vascular dementia. Will also start melatonin 5mg PO q HS to target sleep as patient slept only 45 minutes overnight. Will also order heating pad for patient. 09/27/17 Psych: Plan to discontinue donepezil after taper, increase melatonin to 10mg PO q HS to target sleep, decrease gabapentin to 100mg PO q HS only for the time being. Monitor mood, behavior and response to treatment.
[2017-09-27] MEDS ORDERED: CephALEXin 250 MG/5 ML ORAL LIQUID PO SCH (17:00)
[2017-09-27] MEDS: INSULIN GLARGINE 100unit/ml INJECTION SQ SCH (20:40)
[2017-09-27] MEDS: ATORVASTATIN 20 MG TABLET PO SCH (20:45)
[2017-09-27] MEDS: TRAVOPROST 0.004% EYE DROPS 2.5ml EACH EYE SCH (20:49)
[2017-09-27] MEDS: TRAZODONE 100 MG TABLET PO SCH (20:49)
[2017-09-27] MEDS: CYCLOBENZAPRINE 10 MG TABLET PO PRN (20:50)
[2017-09-27] MEDS: MELATONIN 5 MG TABLET PO SCH (20:51)
[2017-09-27] MEDS ORDERED: GABAPENTIN 100 MG CAPSULE PO SCH (21:00)
[2017-09-28] MEDS: PANTOPRAZOLE 40 MG TABLET PO SCH ×2 (05:34→17:25)
[2017-09-28] MEDS: LEVOTHYROXINE 200 MCG TABLET PO SCH (05:34)
[2017-09-28] MEDS: INSULIN ASPART 100unit/ml INJECTION SQ PRN ×3 (05:50→15:44)
[2017-09-28] MEDS: HYDRALAZINE 25 MG TABLET PO SCH ×2 (08:20→17:25)
[2017-09-28] MEDS: INSULIN ASPART 100unit/ml INJECTION SQ SCH ×3 (08:20→18:30)
[2017-09-28] MEDS: CARVEDILOL 6.25 MG TABLET PO SCH ×2 (08:20→17:25)
[2017-09-28] MEDS: PANCRELIPASE PO SCH ×3 (08:20→17:25)
[2017-09-28] MEDS: ALLOPURINOL 100 MG TABLET PO SCH (08:21)
[2017-09-28] MEDS: ASPIRIN 81 MG CHEWABLE TABLET PO SCH (08:21)
[2017-09-28] MEDS: HYDROCODONE/APAP 5mg/325mg TABLET PO SCH ×2 (08:21→20:24)
[2017-09-28] MEDS: FERROUS SULFATE 324 MG TABLET PO SCH (08:22)
[2017-09-28] MEDS: ROPINIROLE 1 MG TABLET PO SCH ×2 (08:22→20:11)
[2017-09-28] MEDS: BUSPIRONE 15 MG TABLET PO SCH ×2 (08:23→20:09)
[2017-09-28] MEDS: OLOPATADINE 0.2% EACH EYE SCH (08:24)
[2017-09-28] MEDS: POLYETHYL GLYCOL 3350 17gm PACKET PO SCH (08:26)
[2017-09-28] MEDS: CALCIUM 600 + VIT D 400 TABLET PO SCH (15:18)
[2017-09-28] MEDS: TRIAMCINOLONE 0.1% CREAM 15 G TUBE TOP SCH ×2 (15:18→20:28)
--- NOTE | 2017-09-28 16:05 | Wound Care Progress Note ---
Wound Center Progress Note: Bilateral lower legs are very dry and flakey. Pt has been picking on them. at this time suggested they apply A & D ointment to help get moisture to legs.
--- NOTE | 2017-09-28 16:23 | Extended Care Facility Orders ---
Admission Orders Allergies/Adverse Reactions: Allergies codeine [Codiene] Allergy (Unknown, Verified 09/15/17 17:43) hydromorphone [From Dilaudid] Allergy (Unknown, Verified 09/15/17 17:43) morphine Allergy (Unknown, Verified 09/15/17 17:42) Sulfa (Sulfonamide Antibiotics) Allergy (Unknown, Verified 09/15/17 17:42) Admitting Diagnosis: major depressive disorder,severe Admitting Physician: Ирина Mcknight MD Attending Physician: Ирина Mcknight MD Code Status: Do Not Resuscitate Anticiapted Length of Stay: greater than 30 days Rehab Potential: good Rehab Prognosis: good Diet: 09/25/17 Breakfast Consistent Carbohydrate Diet [DIET] Calorie Level: 2000 Wound/Incision Care: N/A May use Facility Protocol or Standing Orders: Yes May have flu vaccine: Yes Evaluations/Treatment: Psychiatric [facility] Certification: I certify that SNF services are required to be given on an Inpatient basis because of the patients need for group home care on a continuing basis for the condition(s) for which he/she received inpatient hospital services prior to his/her transfer to the SNF. SNF inpatient care is necessary for the following reasons Indication for [facility]: Not Applicable - Additional Information Referrals: Trice Overton [Other] (BERNADETTE Dejesus with [facility] will see patient on rounds at the facility for Mental Health follow-up. ) ELMER CHASE MD [Family Provider] - (Dr. Shant Chase on 10/09/17 at 11:30 am for Hospital follow-up. [place] [id number] ) Additional Orders: Recommend continued simplification of medication and minimization or narcotics or other sedating medications.
--- NOTE | 2017-09-28 16:25 | Neuropsychiatric Disch Summary ---
Discharge Information Date of admission: 09/23/17 17:30 Anticipated date of discharge: 09/29/17 Attending Physician: Ирина Mcknight MD Primary care physician: ELMER CHASE Consults: 09/23/17 19:08 Case Management Consult [CONS] Routine Reason For Exam: Optimization of medical comorbidities Physician Consult [CONS] Routine Consulting Provider: Mamadou Jensen Reason For Exam: Optimization of medical comorbidities Ordering Provider has Notified Industrial Safety Engineer: No Comment: Nursing - pleasy notify 09/24/17 17:21 Wound Vein Clinic Consult [CONS] Routine Reason for consultation: assess wound and make recommendations for further tx - Discharge Diagnosis (1) Major depressive disorder, recurrent, severe with psychotic features Status: Chronic (2) 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 Status: Acute (3) Hypertension Status: Chronic (4) Hyperkalemia Status: Chronic (5) Chronic kidney disease (CKD) stage G4/A1, severely decreased glomerular filtration rate (GFR) between 15-29 mL/min/1.73 square meter and albuminuria creatinine ratio less than 30 mg/g Status: Chronic MDD, recurrent, severe (improved by time of discharge) Major neurocognitive disorder, moderate, vascular etiology, with behavioral disturbance Polypharmacy - Laboratory Labs: 09/28/17 07:13 09/28/17 07:13 Date of Admission: 09/23/17 17:30 History of Present Illness: Patient is a 67-year-old male who was admitted to [facility] from [facility] for treatment of his depression and recent suicidal/homicidal thoughts. Patient had been admitted to our unit for similar symptoms and then transferred to the medical floor and ultimately another hospital on Thursday for chest pain, and was treated there for hyperkalemia - now corrected. Patient has endorsed multiple symptoms of depression in the context of family stressors and feeling that his daughter didn't want to speak to him anymore. One of his big concerns was his energy, which he feels is quite low. Patient has endorsed hearing voices of his family telling him that he is going to pass away soon but says at other times, they keep him going. He denies command hallucinations to harm self or others. Hospital Course This is a general summary of the patient's hospital course. For more details refer to the complete medical record. Hospital course: 09/24/17 Agree with admission to [facility] for further evaluation and treatment by psychiatrist. We'll need to follow his electrolytes closely. Blood sugars are uncontrolled at present. We'll continue to adjust insulin as needed. Care to return to Dr. Chase upon discharge. Patient is a DO NOT RESUSCITATE. 09/25/17 Psych: Will continue with plan to decrease meds that may be contributing to depressed mood or patient feeling poorly physically. Today will decraese cyclobenzaprine to 5mg PO TID, decrease Ropinirole to 1mg PO BID ( rather than 2 at HS) and monitor response. Plan - 09/25/17 (Mirakian) Overall, Raimundo appears medically stable and at his baseline with regard to renal function. Continue psychiatric care per team. Continue to provide safe and supportive environment and encourage participation in floor activities as he reportedly has been isolating himself recently. Nursing indicates he has expressed anxiety and worrying about . Labs today are stable with persistent anemia (Hgb 10.7). BUN and SCr 57 and 2.3 respectively. Baseline SCr around 2.5. Will continue to follow electrolytes closely. Continue Kayexalate Mon-Wed-Thu for hyperkalemia. Current potassium 3.9. Pharmacy to do renal dosing. Blood sugars well controlled. Continue to monitor closely. A1c on 09/17 was elevated at 8.6. Will continue Novolog 10 units breakfast, 26 units lunch and 35 units dinner as well as Lantus 98 units HS and Tradjenta 5mg. May consider consulting Dr. Sanches if additional changes are warranted. Generalized body aches this morning. Patient denies other symptoms and aches were relieved with pain medication. Continue to monitor for signs of infection , fever, etc. Dr. Mcknight is slowing tapering cyclobenzaprine and ropinirole to see if any mood improvement is noted. History of GERD. Home medications indicate both Pepcid and Protonix. Given polypharmacy, will discontinue Pepcid. Monitor closely for signs of GERD. Continue wound care for bilateral lower extremity wounds. Recheck labs on 09/28 to monitor blood counts, electrolytes and renal function. Continue to monitor daily weights and signs of fluid overload. Lasix remains on hold due to concern regarding renal function. 09/26/17 Psych: Plan to stop Namenda, taper/discontinue donepezil as they have not been shown effective in vascular dementia. Will also start melatonin 5mg PO q HS to target sleep as patient slept only 45 minutes overnight. Will also order heating pad for patient. 09/27/17 Psych: Plan to discontinue donepezil after taper, increase melatonin to 10mg PO q HS to target sleep, decrease gabapentin to 100mg PO q HS only for the time being. Monitor mood, behavior and response to treatment. Discharge Plan - Med Rec/Dispo Referrals/Follow Up: Trice Overton [Other] (BERNADETTE Dejesus with [facility] will see patient on rounds at the facility for Mental Health follow-up. ) ELMER CHASE MD [Family Provider] - (Dr. Shant Chase on 10/09/17 at 11:30 am for Hospital follow-up. [place] [id number] ) Additional Instructions: Discharge Diagnosis: Reasons for Admission: Depression, and withdrawn behaviors IN CASE OF PSYCHIATRIC EMERGENCY, CONTACT [facility] AT ( available 24 hrs daily). Patient saw Dr. Aaron, car hopper, and he recommended outpatient ischemic evaluation. Based on information from [facility], he needs follow-up appointment with Dr. Aaron (cardiology) [phone] in 2-[address] Kent ( nephrology) [phone] in 1-2 weeks. Prescriptions: New CephALEXin [Keflex] 500 mg PO BID cap Gabapentin [Neurontin] 300 mg PO HS cap Insulin Glargine,Hum.rec.anlog [Lantus] 30 unit SQ HS vial Insulin Aspart [NovoLOG] 35 unit SQ WS vial Nystatin Cream [Mycostatin] 1 applicatio TP BID tube Olopatadine 0.2% Eye Drops-Qd [Pataday] 1 drop EACH EYE DAILY bottle Ropinirole [Requip] 1 mg PO BID tab Buspirone [Buspar] 7.5 mg PO BID tab Cyclobenzaprine [Flexeril] 5 mg PO TID PRN tab PRN Reason: Muscle Spasm Insulin Aspart [NovoLOG] 3 - 12 unit SQ SS PRN vial PRN Reason: Hyperglycemia Polyvinyl Alcohol/Povidone O/S [Refresh Classic] 1 drop EACH EYE PRN PRN ampul PRN Reason: Dry Eyes Continue Allopurinol [Zyloprim] 200 mg PO DAILY Atorvastatin Calcium 20 mg PO HS Aspirin [Lori Chewable Aspirin] 81 mg PO DAILY Travoprost 0.004% Eye Drops [Travatan Z] 1 drop EACH EYE HS Pantoprazole Tab [Protonix Tab] 40 mg PO BID Venlafaxine XR [Effexor Xr] 150 mg PO DAILY Sodium Polystyrene Sulfonate [Kayexelate] 60 ml PO MOWEFR Acetaminophen [Tylenol] 650 mg PO Q4HR PRN tab PRN Reason: Pain Levothyroxine Sodium [Synthroid] 200 mcg PO MoWeFr@0630 tab Trazodone [Desyrel] 150 mg PO HS tab Hydrocodone/APAP 5/325 [[place] 5/325] 1 tab PO BID Insulin Aspart [NovoLOG] 10 unit SQ WB Insulin Aspart [NovoLOG] 26 unit SQ WL Hydralazine [Apresoline] 25 mg PO BID Fenofibrate [Lofibra] 160 mg PO DAILY Carvedilol 6.25 mg PO BID Calcium 600 + D [Caltrate + D] 1 tab PO DAILY Linagliptin [Tradjenta] 5 mg PO DAILY Lipase/Protease/Amylase [Miguel Bowling 24,000 Units Capsule] 1 each PO TID PEG 3350 17gm PACKET [Miralax] 17 gm PO DAILY Ferrous Sulfate 325 mg PO DAILY Loperamide [Imodium] 2 mg PO PRN PRN PRN Reason: Loose Stools Triamcinolone 0.1% Cream 15 G [Kenalog] 1 applicatio TOP BID Levothyroxine Tab [Synthroid] 175 mcg PO SuTuThSa@0630 tab Furosemide [Lasix] 40 mg PO BID Discontinued Buspirone [Buspar] 15 mg PO BID Olopatadine 0.2% Eye Drops-Qd [Pataday] 1 drop EACH EYE DAILY Bacitracin Oint 1 applicatio TP DAILY tube LORazepam [Ativan] 0.5 mg PO Q6H PRN tab PRN Reason: Extreme Agitation Pancrelipase 10,500 Unit [Domonique Bowling] 2 cap PO TIDWM capsule. Insulin Aspart [NovoLOG] 30 unit SQ WS Insulin Glargine,Hum.rec.anlog [Lantus] 92 unit SQ HS Ergocalciferol (Vitamin D2) [Vitamin D2] 1 cap PO 1 MONTH Donepezil [Aricept] 1 tab PO HS Cushman-3 Fatty Acids [Cushman-3] 1,000 mg PO DAILY Memantine [Namenda] 5 mg PO DAILY Gabapentin [Neurontin] 100 mg PO TID Ropinirole [Requip] 1 mg PO DAILY Ropinirole [Requip] 2 mg PO HS Haloperidol [Haldol] 0.5 mg PO Q6H PRN tab PRN Reason: Extreme Agitation DOPamine PREMIX [DOPamine DRIP] 400 mg IV .Q0M bag Heparin Drip 20,000 unit IV .Q20H bag Famotidine [Pepcid] 20 mg PO BID Cyclobenzaprine [Flexeril] 1 tab PO TID PRN PRN Reason: Muscle Spasm Hydrocodone/Acetaminophen [Hydrocodon-Acetaminophen 5-325] 1 tab PO Q6H PRN PRN Reason: Pain - Disposition 04 To [facility] Home/Facility - Dismissal Complete Discharge Instructions are:: Complete
[2017-09-28] MEDS ORDERED: INSULIN ASPART 100unit/ml INJECTION SQ ONE (18:27)
[2017-09-28] MEDS: SODIUM POLYSTYRENE SULFONATE 15 GM/60 ML BOTTLE PO SCH (20:08)
[2017-09-28] MEDS: ATORVASTATIN 20 MG TABLET PO SCH (20:09)
[2017-09-28] MEDS: MELATONIN 5 MG TABLET PO SCH (20:10)
[2017-09-28] MEDS: TRAVOPROST 0.004% EYE DROPS 2.5ml EACH EYE SCH (20:12)
[2017-09-28] MEDS: INSULIN GLARGINE 100unit/ml INJECTION SQ SCH (20:22)
[2017-09-28] MEDS: TRAZODONE 100 MG TABLET PO SCH (20:24)
[2017-09-28] MEDS ORDERED: GABAPENTIN 300 MG CAPSULE PO SCH (21:00)
[2017-09-29] MEDS: LEVOTHYROXINE 175 MCG TABLET PO SCH (06:33)
[2017-09-29] MEDS: PANTOPRAZOLE 40 MG TABLET PO SCH (06:33)
[2017-09-29 08:11] VITALS: BP 158/72; PULSE 78; RESP 18; TEMP 97.8; O2SAT 98
[2017-09-29] MEDS: CARVEDILOL 6.25 MG TABLET PO SCH (08:38)
[2017-09-29] MEDS: INSULIN ASPART 100unit/ml INJECTION SQ SCH ×2 (08:39→11:55)
[2017-09-29] MEDS: HYDRALAZINE 25 MG TABLET PO SCH (08:39)
[2017-09-29] MEDS: PANCRELIPASE PO SCH ×2 (08:40→11:56)
[2017-09-29] MEDS: ALLOPURINOL 100 MG TABLET PO SCH (08:41)
[2017-09-29] MEDS: ASPIRIN 81 MG CHEWABLE TABLET PO SCH (08:44)
[2017-09-29] MEDS: BUSPIRONE 15 MG TABLET PO SCH (08:44)
[2017-09-29] MEDS: FERROUS SULFATE 324 MG TABLET PO SCH (08:45)
[2017-09-29] MEDS: CALCIUM 600 + VIT D 400 TABLET PO SCH (08:45)
[2017-09-29] MEDS: HYDROCODONE/APAP 5mg/325mg TABLET PO SCH (08:45)
[2017-09-29] MEDS: OLOPATADINE 0.2% EACH EYE SCH (08:46)
[2017-09-29] MEDS: POLYETHYL GLYCOL 3350 17gm PACKET PO SCH (08:47)
[2017-09-29] MEDS: ROPINIROLE 1 MG TABLET PO SCH (08:47)
[2017-09-29] MEDS: TRIAMCINOLONE 0.1% CREAM 15 G TUBE TOP SCH (08:48)
[2017-09-29] MEDS: INSULIN ASPART 100unit/ml INJECTION SQ PRN (11:23)
== END 2017-09-29 12:10 | DRG 885 ==
LOC: GEN 17:30
PROVIDERS: ADMIT Psychiatry & Neurology Psychiatry; ATTEND Psychiatry & Neurology Psychiatry